=== PATIENT | female | born 1945 | race African-American/Black ===

== ENCOUNTER 2017-09-14 20:31 | Inpatient (IN) | payer MEDICARE, MEDICAID ==
--- NOTE | 2017-09-15 00:05 | ER Physician Documentation ---
DATE OF SERVICE: 09/14/2017 SUBJECTIVE: The patient was sent over here to be sent to [facility]. She is medically clear. I examined her. The patient does not have any sick complaint. The patient has amputation of the right foot. She has an artificial limb in the right lower extremity. The patient refused giving any blood. She initially refused to be admitted. She does not give any blood. No chest x-ray was done. EKG was done on her showing possible small inferior wall Q-wave patterns suggestive of maybe possibility of old inferior wall AL and the possibility of old anteroseptal wall AL and poor R-wave progression from V1-V4. The patient may be having hypothyroidism. The patient is not very cooperative. The patient was examined. She does not give any history. She came from [facility] facility, to be admitted over here [facility] under [id number]. REVIEW OF SYSTEMS: Essentially benign and negative. She does not have any complaints. Her physical exam reveals vital signs are within normal limits. The patient's right foot is amputated. Right leg has artificial limb. Left lower extremity is alright. General exam is otherwise benign and negative. Eyes reveal normal. Conjunctivae pink, sclerae white. HEENT: Normal. Jugular venous pressure is normal. No cyanosis, petechiae or ecchymosis. CHEST: Clear without any rales, rhonchi, or bronchial breathing. ABDOMEN: Soft, benign and negatives. CENTRAL NERVOUS SYSTEM: Within normal limits. She said she wants to go to her own doctor and she has appointments and things of that nature, but the patient has some psychiatric problems, psychosis and needs to be admitted over here. HEART: Reveals normal heart sounds. No fourth heart sounds. Second heart sound physiologically split. The patient denies any myocardial infarction, rheumatic fever. Hypothyroidism needs to be ruled out in view of the patient's generalized low voltage in the standard and extremity leads as well as in the precordial leads. The patient is an -[place] female patient, 72-year-old, date of is 1945. CLINICAL DIAGNOSIS: The patient has some psychiatric problems, psychosis, right foot amputation, history of diabetes mellitus, refused to give blood and patient was seen in the hallway as all the beds were full, so the patient will be sent to the [facility] facility at the present moment. JOB# [id number]
[2017-09-15] MEDS ORDERED: Maalox 30 mL Cup PO PRN (00:10)
[2017-09-15 00:19] VITALS: BP 130/80
[2017-09-15] MEDS ORDERED: Non-Formulary Item 1 EA (Cranberry Fruit Concentrate [Cranberry] 450 MG) PO SCH (09:00)
[2017-09-15] MEDS: Magnesium Hydroxide (MOM) 30 mL UDC PO SCH (09:24)
[2017-09-15] MEDS: Multivitamin Tab PO SCH (09:24)
--- NOTE | 2017-09-15 12:59 | Psychosocial Evaluation ---
DATE OF SERVICE: 09/15/2017 IDENTIFYING INFORMATION: The patient is a 72-year-old female. CHIEF COMPLAINT: No answer. HISTORY OF PRESENT ILLNESS: The patient was referred from [facility] because of increasing confusion, agitation and disruptive behavior. I have to call and given emergency medication order so she can come here as she at least went there twice and refused to come with them. She was acting very agitated, aggressive. The patient herself was a poor historian. She was delusional. She believes she is a psychologist and a doctor and a copy cutter. She believes this is the [place]. Unable to participate in meaningful conversation. PAST PSYCHIATRIC HISTORY: Unobtainable. MEDICAL HISTORY: Deferred to the medical doctor. She is allergic to insulin. FAMILY AND SOCIAL HISTORY: The patient is . She has children, but she is unable to give any further details. MENTAL STATUS EXAMINATION: The patient is appropriately dressed, not very groomed. She was feeding herself. She is able to tell me the date, but she is not sure where she is. She believes she is in the [facility]. When asked about suicide, homicide, she smiled inappropriately. Her long-term memory is poor. She believes she is 17 years of age. Her recent memory is poor, unable to tell me the events that led to coming here because of her psychosis. Her insight and judgment is impaired. IMPRESSION: AXIS I: Psychosis, not otherwise specified, rule out bipolar disorder. MEDICAL DIAGNOSES: Deferred to the medical doctor. Her assets, she wants to get help. Negative poor coping skills. INITIAL TREATMENT PLAN: The patient was [facility] We will do group therapy, milieu therapy, and individual therapy. ESTIMATED LENGTH OF STAY: 3-7 days. DISCHARGE CRITERIA: Decrease psychosis, agitation. After discharge, outpatient treatment. [facility]# [id number]
--- NOTE | 2017-09-15 20:20 | History & Physical ---
ADMIT DATE: CHIEF COMPLAINT: Psychosis. HISTORY OF PRESENT ILLNESS: The patient is a 72-year-old female with long history of diabetes mellitus, dementia, psychosis, peripheral vascular disease of lower extremities, admitted to [facility] under Dr. Jensen's service for evaluation and treatment. The patient denies any chest pain, shortness of breath, nausea, vomiting, fever or chills. PAST MEDICAL HISTORY: Significant for diabetes mellitus, dementia, psychosis, peripheral vascular disease of lower extremities. PAST SURGICAL HISTORY: Right below knee amputation. ALLERGIES: INSULIN MEDICATION. SOCIAL HISTORY: No smoking, no alcohol, no drug. FAMILY HISTORY: Noncontributory. MEDICATIONS: Follow admission reconciliation. REVIEW OF SYSTEMS: IMMUNO SYSTEM: No history of chronic immuno disorder. CARDIOVASCULAR SYSTEM: No coronary artery disease. ENDOCRINE SYSTEM: She has diabetes mellitus. GASTROINTESTINAL SYSTEM: No upper or lower gastrointestinal bleed. NEUROLOGICAL SYSTEM: No seizure disorder. SKELETOMUSCULAR SYSTEM: She has below-knee amputation on the right lower extremity. PHYSICAL EXAMINATION: GENERAL: She is awake, alert, not coherent. VITAL SIGNS: Temperature 98.1, heart rate 82, blood pressure 139/82. HEENT: Normocephalic. Pupils reacting equal to light and accommodation. Sclerae are clear. NECK: Supple. Negative for lymphadenopathy, JVD or bruit. CHEST: Air entry bilaterally normal. No wheezing. HEART: S1, S2 normal, no gallop rhythm. ABDOMEN: Soft, bowel sounds positive. EXTREMITIES: Right below knee amputation. NEUROLOGIC: She is awake, alert, not fully oriented. No focal motor or sensory deficit. ASSESSMENT: 1. Diabetes mellitus. 2. Degenerative joint disease. 3. Peripheral vascular disease of lower extremities. 4. Psychosis. 5. Dementia. PLAN: The patient is in the hospital under Dr. Jensen's service. The medical problems addressed during hospitalization are psychosis and dementia. Medical problems addressed at discharge are diabetes mellitus. The patient is medically stable for activity. Thank you Dr. Jensen for asking me to see your patient. JOB# [id number]
[2017-09-16] MEDS: Magnesium Hydroxide (MOM) 30 mL UDC PO SCH (08:57)
[2017-09-16] MEDS: Multivitamin Tab PO SCH (08:58)
--- NOTE | 2017-09-16 13:18 | Internal Medicine Prog Note ---
Internal Medicine Subjective - Subjective Service Date: 09/16/17 Patient seen and examined:: with staff (she feels better) Internal Medicine Objective - Physical Exam Vitals and I&O: Vital Signs Temp 98.4 F 09/16/17 06:07 Pulse 82 09/16/17 06:07 Resp 20 09/16/17 06:07 BP 139/82 09/15/17 18:52 Pulse Ox 100 09/16/17 06:07 Intake & Output 09/15/17 09/16/17 09/16/17 18:59 06:59 18:59 Intake Total 300 Balance 300 Intake: Oral 300 Other: # Voids 2 # Bowel Movements 0 Active Medications: Current Medications Acetaminophen (Tylenol) 325 mg PO Q4HR PRN PRN Reason: Pain or Fever >101 Stop: 11/14/17 00:05 Al Hydrox/Mg Hydrox/Simethicone (Maalox) 30 ml PO Q4HR PRN PRN Reason: GI DISTRESS Stop: 11/14/17 00:09 Aripiprazole (Abilify) 5 mg PO BID YAHAIRA PRN Reason: Protocol Stop: 11/14/17 16:59 Last Admin: 09/16/17 08:52 Dose: 5 mg Divalproex Sodium (Depakote Dr) 250 mg PO TID YAHAIRA PRN Reason: Protocol Stop: 11/14/17 13:59 Last Admin: 09/16/17 08:52 Dose: Not Given Docusate Sodium (Colace) 100 mg PO DAILY [facility]IRA Stop: 11/14/17 08:59 Last Admin: 09/16/17 08:57 Dose: Not Given Lorazepam (Ativan) 0.5 mg PO Q4HR PRN; Protocol PRN Reason: Anxiety Stop: 10/15/17 00:09 Last Admin: 09/15/17 20:52 Dose: 0.5 mg Magnesium Hydroxide (Milk Of Magnesia) 30 ml PO DAILY YA[facility]IRA Stop: 11/14/17 08:59 Last Admin: 09/16/17 08:57 Dose: Not Given Metformin HCl (Glucophage) 1,000 mg PO BID YAHAIRA Stop: 11/14/17 16:59 Last Admin: 09/16/17 08:52 Dose: 1,000 mg Multivitamins/Vitamin C (Theragran) 1 tab PO DAILY YA[facility]IRA Stop: 04/28/18 08:59 Last Admin: 09/16/17 08:58 Dose: Not Given Trihexyphenidyl HCl (Artane) 2 mg PO BID YAHAIRA Stop: 11/14/17 08:59 Last Admin: 09/16/17 08:52 Dose: 2 mg Zolpidem Tartrate (Ambien) 5 mg PO HS PRN PRN Reason: Insomnia Stop: 11/14/17 00:09 Internal Medicine Assmt/Plan - Assessment Assessment: 1.DM. 2.DJD. 3.PVD 4.DEMENTIA. - Plan Plan: CONTINUE ON CURRENT MEDICATION AND DIET.
--- NOTE | 2017-09-16 22:28 | Progress Notes ---
DATE: 09/16/2017 Case was discussed with staff of the patient. The patient continues to be somewhat paranoid, continues to have poor insight, unpredictable, and impulsive. She has been selective about the medication. Actually, we made no change in her medication. We are giving her the medication that was prescribed because she is saying that her doctor not given any medication and she is on Abilify and Depakote. The staff reports she did take the Abilify and refuse Depakote. She has been selective about her medication. I tried to talk to her about her medication, discussed side effects; however, she believes she does not need to be on medication. She ask her psychologist and she not need to be done and that she was have to go take care of her and I explained to the patient that actually she came from a nursing facility; however, she report that she was on her way to go see her and take him to the doctor. She is very evasive, delusional, and unable to make safe plan for self-care. No side effects to the medication, no sedation, no nausea, and no extrapyramidal symptoms. No lab work is available in the records. We will continue to work with the patient in group therapy, milieu therapy, and adjust medications as needed. JOB# [id number]
[2017-09-17] MEDS: Multivitamin Tab PO SCH (09:47)
[2017-09-17] MEDS: Magnesium Hydroxide (MOM) 30 mL UDC PO SCH (09:47)
--- NOTE | 2017-09-17 18:30 | Internal Medicine Prog Note ---
Internal Medicine Subjective - Subjective Service Date: 09/17/17 Patient seen and examined:: with staff Internal Medicine Objective - Physical Exam Vitals and I&O: Vital Signs Temp 98.4 F 09/17/17 14:00 Pulse 84 09/17/17 14:00 Resp 19 09/17/17 14:00 BP 137/68 09/17/17 14:00 Pulse Ox 99 09/17/17 14:00 Intake & Output 09/16/17 09/17/17 09/17/17 18:59 06:59 18:59 Intake Total 570 Balance 570 Intake: Oral 570 Other: # Voids 2 # Bowel Movements 2 Stool Characteristics Formed Formed Formed Active Medications: Current Medications Acetaminophen (Tylenol) 325 mg PO Q4HR PRN PRN Reason: Pain or Fever >101 Stop: 11/14/17 00:05 Al Hydrox/Mg Hydrox/Simethicone (Maalox) 30 ml PO Q4HR PRN PRN Reason: GI DISTRESS Stop: 11/14/17 00:09 Aripiprazole (Abilify) 5 mg PO TID YAHAIRA PRN Reason: Protocol Stop: 11/16/17 13:59 Last Admin: 09/17/17 18:00 Dose: Not Given Divalproex Sodium (Depakote Dr) 250 mg PO TID YAHAIRA PRN Reason: Protocol Stop: 11/14/17 13:59 Last Admin: 09/17/17 18:00 Dose: Not Given Docusate Sodium (Colace) 100 mg PO DAILY [facility] Stop: 11/14/17 08:59 Last Admin: 09/17/17 09:47 Dose: Not Given Lorazepam (Ativan) 0.5 mg PO Q4HR PRN; Protocol PRN Reason: Anxiety Stop: 10/15/17 00:09 Last Admin: 09/15/17 20:52 Dose: 0.5 mg Magnesium Hydroxide (Milk Of Magnesia) 30 ml PO DAILY YAHAIRA Stop: 11/14/17 08:59 Last Admin: 09/17/17 09:47 Dose: 30 ml Metformin HCl (Glucophage) 1,000 mg PO BID YAHAIRA Stop: 11/14/17 16:59 Last Admin: 09/17/17 18:00 Dose: Not Given Multivitamins/Vitamin C (Theragran) 1 tab PO DAILY YAHAIRA Stop: 11/14/17 08:59 Last Admin: 09/17/17 09:47 Dose: 1 tab Trihexyphenidyl HCl (Artane) 2 mg PO BID YAHAIRA Stop: 11/14/17 08:59 Last Admin: 09/17/17 18:00 Dose: Not Given Zolpidem Tartrate (Ambien) 5 mg PO HS PRN PRN Reason: Insomnia Stop: 11/14/17 00:09 Internal Medicine Assmt/Plan - Assessment Assessment: 1.DM. 2.DJD. 3.PVD 4.DEMENTIA. - Plan Plan: CONTINUE ON CURRENT MEDICATION AND DIET.
--- NOTE | 2017-09-18 03:32 | Progress Notes ---
DATE: 09/17/2017 SUBJECTIVE: Case was discussed with staff of the patient. The patient continues to be paranoid and delusional. She has artificial right leg. Continues to have poor insight. She continues to be delusional, unable to make safe plan for self-care, refusing to take the Depakote, but she is taking the Abilify. I will be increasing the dose to 50 mg a day to take 7.5 mg twice a day and so far no side effects with the medication, no sedation, no nausea, no extrapyramidal symptoms. There is no lab work available in the records. We will continue the patient in group therapy, milieu therapy, and adjust the medications. JOB# [id number]
[2017-09-18] MEDS: Magnesium Hydroxide (MOM) 30 mL UDC PO SCH (08:47)
[2017-09-18] MEDS: Multivitamin Tab PO SCH (08:47)
--- NOTE | 2017-09-19 00:16 | Internal Medicine Prog Note ---
Internal Medicine Subjective - Subjective Service Date: 09/18/17 Patient is:: awake, non-verbal, confused Per staff patient has:: no adverse event Internal Medicine Objective - Physical Exam Vitals and I&O: Vital Signs Temp 97.2 F 09/18/17 20:44 Pulse 90 09/18/17 20:44 Resp 18 09/18/17 20:44 BP 108/67 09/18/17 20:44 Pulse Ox 97 09/18/17 20:44 Intake & Output 09/18/17 09/18/17 09/19/17 06:59 18:59 06:59 Intake Total 549 833 5369 Balance 750 782 3491 Intake: Oral 571 715 3184 Other: # Voids 1 1 2 Stool Characteristics Formed Active Medications: Current Medications Acetaminophen (Tylenol) 325 mg PO Q4HR PRN PRN Reason: Pain or Fever >101 Stop: 11/14/17 00:05 Al Hydrox/Mg Hydrox/Simethicone (Maalox) 30 ml PO Q4HR PRN PRN Reason: GI DISTRESS Stop: 11/14/17 00:09 Aripiprazole (Abilify) 5 mg PO TID YAHAIRA PRN Reason: Protocol Stop: 11/16/17 13:59 Last Admin: 09/18/17 21:18 Dose: 5 mg Divalproex Sodium (Depakote Dr) 250 mg PO TID YAHAIRA PRN Reason: Protocol Stop: 11/14/17 13:59 Last Admin: 09/18/17 21:18 Dose: 250 mg Docusate Sodium (Colace) 100 mg PO DAILY [facility] Stop: 11/14/17 08:59 Last Admin: 09/18/17 08:47 Dose: 100 mg Lorazepam (Ativan) 0.5 mg PO Q4HR PRN; Protocol PRN Reason: Anxiety Stop: 10/15/17 00:09 Last Admin: 09/15/17 20:52 Dose: 0.5 mg Magnesium Hydroxide (Milk Of Magnesia) 30 ml PO DAILY [facility] Stop: 11/14/17 08:59 Last Admin: 09/18/17 08:47 Dose: Not Given Metformin HCl (Glucophage) 1,000 mg PO BID [facility] Stop: 11/14/17 16:59 Last Admin: 09/18/17 17:43 Dose: 1,000 mg Multivitamins/Vitamin C (Theragran) 1 tab PO DAILY [facility] Stop: 11/14/17 08:59 Last Admin: 09/18/17 08:47 Dose: 1 tab Trihexyphenidyl HCl (Artane) 2 mg PO BID YAHAIRA Stop: 11/14/17 08:59 Last Admin: 09/18/17 17:43 Dose: 2 mg Zolpidem Tartrate (Ambien) 5 mg PO HS PRN PRN Reason: Insomnia Stop: 11/14/17 00:09 General: demented HEENT: PERRLA, anicteric sclerae, throat clear Neck: Supple, No JVD, No thyromegaly Lungs: CTAB Cardiovascular: RRR, Normal S2, without murmur Abdomen: soft, non-tender, non-distended Extremities: clear Neurological: no change Internal Medicine Assmt/Plan - Assessment Assessment: 1.DM. 2.DJD. 3.PVD 4.DEMENTIA. - Plan Plan: CONTINUE ON CURRENT MEDICATION AND DIET.
--- NOTE | 2017-09-19 00:40 | Progress Notes ---
DATE: 09/17/2017 Case was discussed with staff of the patient and reviewed records. The patient refused the Abilify today; however, she will not tell me why she would not take it. She is selective, sometimes she takes it, sometimes she does not; so, we cannot really pursue, I wish hearing it that she did take it. She continues to be unpredictable, impulsive, needing redirection, delusional, unable to make safe plan for her self-care. We will continue to work with the patient in group therapy, milieu therapy, and adjust medications as needed. JOB# [id number]
[2017-09-19] MEDS: Magnesium Hydroxide (MOM) 30 mL UDC PO SCH (09:16)
[2017-09-19] MEDS: Multivitamin Tab PO SCH (09:17)
--- NOTE | 2017-09-19 15:23 | General Progress Note ---
Subjective - Review of Systems Service Date: 09/19/17 Subjective: resting comfortably no distress Objective - Physical Exam Vitals and I&O: Vital Signs Temp 97.4 F 09/19/17 07:15 Pulse 72 09/19/17 07:15 Resp 19 09/19/17 07:15 BP 107/60 09/19/17 07:15 Pulse Ox 98 09/19/17 07:15 Intake & Output 09/18/17 09/19/17 09/19/17 18:59 06:59 18:59 Intake Total 320 1840 1 Balance 320 1840 1 Intake: Oral 320 1840 1 Other: # Voids 1 2 Active Medications: Current Medications Acetaminophen (Tylenol) 325 mg PO Q4HR PRN PRN Reason: Pain or Fever >101 Stop: 11/14/17 00:05 Al Hydrox/Mg Hydrox/Simethicone (Maalox) 30 ml PO Q4HR PRN PRN Reason: GI DISTRESS Stop: 11/14/17 00:09 Aripiprazole (Abilify) 5 mg PO TID YAHAIRA PRN Reason: Protocol Stop: 11/16/17 13:59 Last Admin: 09/19/17 09:18 Dose: 5 mg Divalproex Sodium (Depakote Dr) 250 mg PO TID YAHAIRA PRN Reason: Protocol Stop: 11/14/17 13:59 Last Admin: 09/19/17 09:17 Dose: Not Given Docusate Sodium (Colace) 100 mg PO DAILY [facility] Stop: 11/14/17 08:59 Last Admin: 09/19/17 09:16 Dose: 100 mg Lorazepam (Ativan) 0.5 mg PO Q4HR PRN; Protocol PRN Reason: Anxiety Stop: 10/15/17 00:09 Last Admin: 09/15/17 20:52 Dose: 0.5 mg Magnesium Hydroxide (Milk Of Magnesia) 30 ml PO DAILY [facility] Stop: 11/14/17 08:59 Last Admin: 09/19/17 09:16 Dose: Not Given Metformin HCl (Glucophage) 1,000 mg PO BID [facility] Stop: 11/14/17 16:59 Last Admin: 09/19/17 09:17 Dose: 1,000 mg Multivitamins/Vitamin C (Theragran) 1 tab PO DAILY [facility] Stop: 11/14/17 08:59 Last Admin: 09/19/17 09:17 Dose: 1 tab Trihexyphenidyl HCl (Artane) 2 mg PO BID Y[facility]A Stop: 11/14/17 08:59 Last Admin: 09/19/17 09:17 Dose: 2 mg Zolpidem Tartrate (Ambien) 5 mg PO HS PRN PRN Reason: Insomnia Stop: 11/14/17 00:09 General: No acute distress HEENT: Atraumatic, PERRLA, EOMI Neck: Supple, JVD Cardiovascular: Regular rate, Normal S1, Normal S2 Lungs: Clear to auscultation Abdomen: Bowel sounds, Soft Assessment/Plan - Assessment Assessment: 1.DM. 2.DJD. 3.PVD 4.DEMENTIA. - Plan Plan: cont current treatment
--- NOTE | 2017-09-19 22:22 | Progress Notes ---
DATE: 09/19/2017 Case was discussed with staff of patient, reviewed records. The patient continues to be unpredictable, impulsive, internally preoccupied, refusing Depakote; however, she does take the Abilify, which is good enough so I can release her. She is taking the medication. Continues to have poor insight and unable to make safe plan for self-care, unpredictable, impulsive, needing redirection. She is sleeping well, eating well. No side effects with the medication, no sedation nausea, no extrapyramidal symptoms. We will continue patient in group therapy and therapy, adjust medication as needed. JOB# [id number]
--- NOTE | 2017-09-20 08:22 | General Progress Note ---
Subjective - Review of Systems Service Date: 09/20/17 Subjective: resting comfortably no distress Objective - Physical Exam Vitals and I&O: Vital Signs Temp 97.9 F 09/20/17 06:39 Pulse 81 09/20/17 06:39 Resp 20 09/20/17 06:39 BP 117/66 09/20/17 06:39 Pulse Ox 97 09/20/17 06:39 Intake & Output 09/19/17 09/20/17 09/20/17 18:59 06:59 18:59 Intake Total 1201 600 Balance 1201 600 Intake: Oral 1201 600 Other: # Voids 3 1 # Bowel Movements 3 Active Medications: Current Medications Acetaminophen (Tylenol) 325 mg PO Q4HR PRN PRN Reason: Pain or Fever >101 Stop: 11/14/17 00:05 Al Hydrox/Mg Hydrox/Simethicone (Maalox) 30 ml PO Q4HR PRN PRN Reason: GI DISTRESS Stop: 11/14/17 00:09 Aripiprazole (Abilify) 5 mg PO TID YAHAIRA PRN Reason: Protocol Stop: 11/16/17 13:59 Last Admin: 09/19/17 22:18 Dose: 5 mg Divalproex Sodium (Depakote Dr) 250 mg PO TID YAHAIRA PRN Reason: Protocol Stop: 11/14/17 13:59 Last Admin: 09/19/17 22:18 Dose: 250 mg Docusate Sodium (Colace) 100 mg PO DAILY [facility] Stop: 11/14/17 08:59 Last Admin: 09/19/17 09:16 Dose: 100 mg Lorazepam (Ativan) 0.5 mg PO Q4HR PRN; Protocol PRN Reason: Anxiety Stop: 10/15/17 00:09 Last Admin: 09/15/17 20:52 Dose: 0.5 mg Magnesium Hydroxide (Milk Of Magnesia) 30 ml PO DAILY [facility] Stop: 11/14/17 08:59 Last Admin: 09/19/17 09:16 Dose: Not Given Metformin HCl (Glucophage) 1,000 mg PO BID YA[facility]A Stop: 11/14/17 16:59 Last Admin: 09/19/17 16:19 Dose: 1,000 mg Multivitamins/Vitamin C (Theragran) 1 tab PO DAILY [facility] Stop: 11/14/17 08:59 Last Admin: 09/19/17 09:17 Dose: 1 tab Trihexyphenidyl HCl (Artane) 2 mg PO BID YAHAIRA Stop: 11/14/17 08:59 Last Admin: 09/19/17 16:19 Dose: 2 mg Zolpidem Tartrate (Ambien) 5 mg PO HS PRN PRN Reason: Insomnia Stop: 11/14/17 00:09 General: No acute distress HEENT: Atraumatic, PERRLA, EOMI Neck: Supple, JVD Cardiovascular: Regular rate, Normal S1, Normal S2 Lungs: Clear to auscultation Abdomen: Bowel sounds, Soft Assessment/Plan - Assessment Assessment: 1.DM. 2.DJD. 3.PVD 4.DEMENTIA. - Plan Plan: cont current treatment
[2017-09-20] MEDS: Multivitamin Tab PO SCH (08:40)
[2017-09-20] MEDS: Magnesium Hydroxide (MOM) 30 mL UDC PO SCH (08:43)
--- NOTE | 2017-09-20 23:05 | Progress Notes ---
DATE: 09/20/2017 Case was discussed with staff of patient, reviewed records. The patient continues to be delusional, believes she is a doctor herself, so she does not need to take any medication. She has been selective about her medication, but in general, she is taking Abilify, using Depakote. She is unpredictable, impulsive, needing redirection. Continues to have poor insight. She does take the Abilify sometimes so I will be increasing the dose and so far no side effects, no sedation, no nausea, no extrapyramidal symptoms. Make the Abilify dose to 10 mg twice a day and we will continue outpatient group therapy, milieu therapy, adjust medication as needed. JOB# [id number]
[2017-09-21] MEDS: Multivitamin Tab PO SCH (10:17)
[2017-09-21] MEDS: Magnesium Hydroxide (MOM) 30 mL UDC PO SCH (10:19)
--- NOTE | 2017-09-21 22:29 | Progress Notes ---
DATE: 09/21/2017 Case was discussed with staff of patient, reviewed records. The patient continues to be delusional, paranoid. She believes she is a doctor. She continues to be unpredictable, impulsive, needing redirection, refusing Depakote, but takes the Abilify. I did increase the dose yesterday to 10 mg twice a day and no side effects, no sedation, no nausea, no extrapyramidal symptoms. We will continue to work with the patient in group therapy, milieu therapy, and adjust medications as needed. JOB# [id number]
--- NOTE | 2017-09-21 23:17 | Internal Medicine Prog Note ---
Internal Medicine Subjective - Subjective Service Date: 09/21/17 Patient seen and examined:: without staff Patient is:: awake, non-verbal, confused Per staff patient has:: no adverse event Internal Medicine Objective - Physical Exam Vitals and I&O: Vital Signs Temp 98.7 F 09/21/17 22:32 Pulse 93 09/21/17 22:32 Resp 18 09/21/17 22:32 BP 123/69 09/21/17 22:32 Pulse Ox 99 09/21/17 22:32 Intake & Output 09/21/17 09/21/17 09/22/17 06:59 18:59 06:59 Intake Total 240 Balance 240 Intake: Oral 240 Other: # Voids 2 # Bowel Movements 0 Active Medications: Current Medications Acetaminophen (Tylenol) 325 mg PO Q4HR PRN PRN Reason: Pain or Fever >101 Stop: 11/14/17 00:05 Al Hydrox/Mg Hydrox/Simethicone (Maalox) 30 ml PO Q4HR PRN PRN Reason: GI DISTRESS Stop: 11/14/17 00:09 Aripiprazole (Abilify) 10 mg PO BID YA[facility]IRA PRN Reason: Protocol Stop: 11/19/17 16:59 Last Admin: 09/21/17 17:07 Dose: Not Given Divalproex Sodium (Depakote Dr) 250 mg PO TID YAHAIRA PRN Reason: Protocol Stop: 11/14/17 13:59 Last Admin: 09/21/17 21:53 Dose: Not Given Docusate Sodium (Colace) 100 mg PO DAILY [facility] Stop: 11/14/17 08:59 Last Admin: 09/21/17 10:17 Dose: 100 mg Lorazepam (Ativan) 0.5 mg PO Q4HR PRN; Protocol PRN Reason: Anxiety Stop: 10/15/17 00:09 Last Admin: 09/15/17 20:52 Dose: 0.5 mg Magnesium Hydroxide (Milk Of Magnesia) 30 ml PO DAILY [facility] Stop: 11/14/17 08:59 Last Admin: 09/21/17 10:19 Dose: Not Given Metformin HCl (Glucophage) 1,000 mg PO BID [facility] Stop: 11/14/17 16:59 Last Admin: 09/21/17 17:07 Dose: 1,000 mg Multivitamins/Vitamin C (Theragran) 1 tab PO DAILY [facility] Stop: 11/14/17 08:59 Last Admin: 09/21/17 10:17 Dose: 1 tab Trihexyphenidyl HCl (Artane) 2 mg PO BID [facility] Stop: 11/14/17 08:59 Last Admin: 09/21/17 17:07 Dose: 2 mg Zolpidem Tartrate (Ambien) 5 mg PO HS PRN PRN Reason: Insomnia Stop: 11/14/17 00:09 Last Admin: 09/20/17 21:56 Dose: 5 mg General: demented HEENT: PERRLA, anicteric sclerae, throat clear Neck: Supple, No JVD, No thyromegaly Lungs: CTAB Cardiovascular: RRR, Normal S2, without murmur Abdomen: soft, non-tender, non-distended Extremities: clear Neurological: no change Internal Medicine Assmt/Plan - Assessment Assessment: 1.DM. 2.DJD. 3.PVD 4.DEMENTIA. - Plan Plan: CONTINUE ON CURRENT MEDICATION AND DIET. Nutritional Asmnt/Malnutr-PDOC - Dietary Evaluation Malnutrition Findings (Please click <Entered> for more info): Nutritional Asmnt/Malnutrition Start: 09/21/17 15: 57 Text: Status: Complete Freq: Document 09/21/17 15:57 PIERO (Rec: 09/21/17 16:02 PIERO [email or web address]) Nutritional Asmnt/Malnutrition Patient General Information Nutritional Screening Low Risk Diagnosis psychosis Pertinent Medical Hx/Surgical Hx DM, dementia, psychosis, PVD, right BKA Subjective Information Pt seen sleeping in bed at time of visit. Per record, PO intake 100%. BMI 31.6 considering right BKA (5.9%) Current Diet Order/ [facility] Pertinent Medications colace, glucophage, theragran Pertinent Labs no labs Nutritional Hx/Data Height 1.65 m Height (Calculated Centimeters) 165.1 Current Weight (lbs) 81.647 kg Weight (Calculated Kilograms) 81.6 Weight (Calculated Grams) 81141.6 [place] Body Weight 113 Body Mass Index (BMI) 29.9 Weight Status Overweight Estimated Nutritional Goals BEE in Kcals: Adj wt of IBW Calories/Kcals/Kg 25-30 Kcals Calculated 5518-5519 Protein: Adj wt of IBW Protein g/k-1.2 Protein Calculated 59-71 Fluid: ml 1475-1770ml Nutritional Problem No current Nutrition Prob Problem N/A Malnutrition Alert Protein-Calorie Malnutrition N/A Is there a minimum of two criteria No selected? Query Text:Check all the applicable criteria. A minimum of two criteria are recommended for diagnosis of either severe or non-severe malnutrition. Intervention/Recommendation Comments 1. Continue with current diet as ordered. 2. Monitor PO intake, wt, labs and skin integrity 3. F/U as low risk in 7 days, 09/28 Expected Outcomes/Goals Expected Outcomes/Goals 1. PO intake to meet at least 75% of nutritional needs. 2. Wt stability, skin to remain intact, labs to approach WNL.
[2017-09-22] MEDS: Magnesium Hydroxide (MOM) 30 mL UDC PO SCH (08:59)
[2017-09-22] MEDS: Multivitamin Tab PO SCH (08:59)
--- NOTE | 2017-09-22 11:49 | Internal Medicine Prog Note ---
Internal Medicine Subjective - Subjective Service Date: 09/22/17 Patient seen and examined:: with staff Patient is:: awake, non-verbal, confused Per staff patient has:: no adverse event Internal Medicine Objective - Physical Exam Vitals and I&O: Vital Signs Temp 99.2 F 09/22/17 06:00 Pulse 78 09/22/17 06:00 Resp 20 09/22/17 06:00 BP 129/59 09/22/17 06:00 Pulse Ox 99 09/22/17 06:00 Intake & Output 09/21/17 09/22/17 09/22/17 18:59 06:59 18:59 Intake Total 440 Balance 440 Intake: Oral 440 Other: # Voids 2 # Bowel Movements 0 Active Medications: Current Medications Acetaminophen (Tylenol) 325 mg PO Q4HR PRN PRN Reason: Pain or Fever >101 Stop: 11/14/17 00:05 Al Hydrox/Mg Hydrox/Simethicone (Maalox) 30 ml PO Q4HR PRN PRN Reason: GI DISTRESS Stop: 11/14/17 00:09 Aripiprazole (Abilify) 10 mg PO BID [facility]A PRN Reason: Protocol Stop: 11/19/17 16:59 Last Admin: 09/22/17 08:59 Dose: Not Given Divalproex Sodium (Depakote Dr) 250 mg PO TID [facility] PRN Reason: Protocol Stop: 11/14/17 13:59 Last Admin: 09/22/17 08:59 Dose: Not Given Docusate Sodium (Colace) 100 mg PO DAILY [facility] Stop: 11/14/17 08:59 Last Admin: 09/22/17 08:58 Dose: 100 mg Lorazepam (Ativan) 0.5 mg PO Q4HR PRN; Protocol PRN Reason: Anxiety Stop: 10/15/17 00:09 Last Admin: 09/15/17 20:52 Dose: 0.5 mg Magnesium Hydroxide (Milk Of Magnesia) 30 ml PO DAILY [facility] Stop: 11/14/17 08:59 Last Admin: 09/22/17 08:59 Dose: Not Given Metformin HCl (Glucophage) 1,000 mg PO BID [facility] Stop: 11/14/17 16:59 Last Admin: 09/22/17 08:55 Dose: 1,000 mg Multivitamins/Vitamin C (Theragran) 1 tab PO DAILY [facility] Stop: 11/14/17 08:59 Last Admin: 09/22/17 08:59 Dose: 1 tab Trihexyphenidyl HCl (Artane) 2 mg PO BID [facility] Stop: 11/14/17 08:59 Last Admin: 09/22/17 08:58 Dose: 2 mg Zolpidem Tartrate (Ambien) 5 mg PO HS PRN PRN Reason: Insomnia Stop: 11/14/17 00:09 Last Admin: 09/22/17 01:24 Dose: 5 mg General: demented HEENT: PERRLA, anicteric sclerae, throat clear Neck: Supple, No JVD, No thyromegaly Lungs: CTAB Cardiovascular: RRR, Normal S2, without murmur Abdomen: soft, non-tender, non-distended Extremities: clear Neurological: no change Internal Medicine Assmt/Plan - Assessment Assessment: 1.DM. 2.DJD. 3.PVD 4.DEMENTIA. - Plan Plan: CONTINUE ON CURRENT MEDICATION AND DIET. Nutritional Asmnt/Malnutr-PDOC - Dietary Evaluation Malnutrition Findings (Please click <Entered> for more info): Nutritional Asmnt/Malnutrition Start: 09/21/17 15: 57 Text: Status: Complete Freq: Document 09/21/17 15:57 PIERO (Rec: 09/21/17 16:02 PIERO [email or web address]) Nutritional Asmnt/Malnutrition Patient General Information Nutritional Screening Low Risk Diagnosis psychosis Pertinent Medical Hx/Surgical Hx DM, dementia, psychosis, PVD, right BKA Subjective Information Pt seen sleeping in bed at time of visit. Per record, PO intake 100%. BMI 31.6 considering right BKA (5.9%) Current Diet Order/ [facility] Pertinent Medications colace, glucophage, theragran Pertinent Labs no labs Nutritional Hx/Data Height 1.65 m Height (Calculated Centimeters) 165.1 Current Weight (lbs) 81.647 kg Weight (Calculated Kilograms) 81.6 Weight (Calculated Grams) 02927.6 [place] Body Weight 113 Body Mass Index (BMI) 29.9 Weight Status Overweight Estimated Nutritional Goals BEE in Kcals: Adj wt of IBW Calories/Kcals/Kg 25-30 Kcals Calculated 1585-0868 Protein: Adj wt of IBW Protein g/k-1.2 Protein Calculated 59-71 Fluid: ml 1475-1770ml Nutritional Problem No current Nutrition Prob Problem N/A Malnutrition Alert Protein-Calorie Malnutrition N/A Is there a minimum of two criteria No selected? Query Text:Check all the applicable criteria. A minimum of two criteria are recommended for diagnosis of either severe or non-severe malnutrition. Intervention/Recommendation Comments 1. Continue with current diet as ordered. 2. Monitor PO intake, wt, labs and skin integrity 3. F/U as low risk in 7 days, 09/28 Expected Outcomes/Goals Expected Outcomes/Goals 1. PO intake to meet at least 75% of nutritional needs. 2. Wt stability, skin to remain intact, labs to approach WNL.
--- NOTE | 2017-09-22 15:08 | Discharge Summary ---
DATE OF DISCHARGE: 09/19/2017 IDENTIFYING INFORMATION: The patient is a 72-year-old female. CHIEF COMPLAINT: No answer. HISTORY OF PRESENT ILLNESS: The patient was referred from [facility] because of increasing confusion, agitation and disruptive behavior, had to be medicated upon admission. The patient was a poor historian. She believes she is a doctor and a psychologist, unable to give much information, diagnosed with psychosis, no answer and possible bipolar disorder, also partial dementia. COURSE IN THE HOSPITAL: The patient was on Abilify ____ mg twice a day, Depakote 250 mg 3 times a day. The patient tended to be picky about her medications. Sometimes she takes it, sometimes she not. She continues to be delusional. She is also ____ twice a day as needed. The patient got a stage where we can feel like even longer ____ we can take care of her. The patient is not acting anyway dangerous or agitated. She can go to the locked unit and could be held and the patient was discharged to a lesser level of care. FINAL DIAGNOSIS: AXIS I: Bipolar disorder with psychosis. MEDICAL DIAGNOSIS: Deferred to the medical doctor. The patient will go back to [facility], was set up care physician and therapist. Expected stay if the patient complies. [facility]# [id number]
== END 2017-09-22 19:52 | disposition home or self-care (01) | DRG 885 ==
LOC: ER 20:31 → GERO2 22:00
PROVIDERS: ADMIT Psychiatry & Neurology Psychiatry; ATTEND Psychiatry & Neurology Psychiatry
DX: F29 Unspecified psychosis not due to a substance or known physiological condition (principal); E11.51 Type 2 diabetes mellitus with diabetic peripheral angiopathy without gangrene; F03.90 Unspecified dementia, unspecified severity, without behavioral disturbance, psychotic disturbance, mood disturbance, and anxiety; F31.9 Bipolar disorder, unspecified; M19.90 Unspecified osteoarthritis, unspecified site; Z88.8 Allergy status to other drugs, medicaments and biological substances; Z89.431 Acquired absence of right foot
CPT/HCPCS: 93005

== ENCOUNTER 2018-12-31 21:28 | Inpatient (IN) | payer MEDICARE, MEDICAID ==
--- NOTE | 2018-12-31 22:05 | ED Physician Chart ---
ED Chief Complaint/HPI - Patient Information Date Seen:: 12/31/18 Time Seen:: 21:59 Chief Complaint:: agitation History of Present Illness:: 73 yr old female here for agitation and striking out at people pt has dm and rt bka prosthesis pt refuses vitals or any contact with us staff refuses to answer any questions Allergies:: Allergies Allergy/AdvReac Type Severity Reaction Status Date / Time Insulins Allergy Verified 09/14/17 21:20 ED Review of Systems - Review of Systems General/Constitutional: No fever Head: No headache Eyes: No loss of vision ENT: No earache Neck: No neck pain Cardio Vascular: No chest pain Pulmonary: No SOB GI: No vomiting Psychiatric: Prior psych history Hematopoietic: No bruising ED Past Medical History - Past Medical History Past Medical History: DM Surgical History: other (rt bka) Family Medical History - Family Member Mother History Unknown: Yes Ethnicity: Unknown Living Status: Unknown Hx Family Cancer: (Unknown) Hx Family Coronary Artery Disease: (Unknown) Hx Family Congestive Heart Failure: (Unknown) Hx Family Hypertension: (Unknown) Hx Family Stroke: (Unknown) Hx Family Diabetes: (Unknown) Hx Family Seizures: (Unknown) Hx Family Dementia: (Unknown) Hx Family AIDS: (Unknown) Hx Family HIV: No Hx Family COPD: (Unknown) Hx Family Hepatitis: (Unknown) Hx Family Psychiatric Problems: (Unknown) Hx Family Tuberculosis: (Unknown) ED Physical Exam - Physical Examination General/Constitutional: Awake Head: Atraumatic Eyes: Lids, conjuctiva normal ED Assessment - Assessment General Assessment: agitation geropsych evaluation ED Septic Shock - . Is Septic Shock (SBP<90, OR Lactate>4 mmol\L) present?: No ED Reassessment (Disposition) - Reassessment Reassessment:: psychosi agitation - Patient Disposition Admitted to:: [facility] Condition at Disposition:: Stable
[2019-01-01] MEDS ORDERED: Maalox 30 mL Cup PO PRN ×2 (03:24→21:03)
[2019-01-01] MEDS ORDERED: Magnesium Hydroxide (MOM) 30 mL UDC PO PRN (03:24)
[2019-01-01 08:54] VITALS: BP 116/52
[2019-01-01] MEDS: Haldol Oral Sol.(concentrate) 10 mg/5 mL Udc PO SCH ×2 (09:30→17:20)
[2019-01-01] MEDS ORDERED: Dextrose 50% 50 mL Abboject IVP PRN (21:05)
[2019-01-01] MEDS ORDERED: GLUCAGON HCl 1 MG KIT IM PRN (21:05)
--- NOTE | 2019-01-01 21:29 | History & Physical ---
ADMIT DATE: 12/31/2018 CHIEF COMPLAINT: Psychosis. HISTORY OF PRESENT ILLNESS: The patient is a 73-year-old female with long history of diabetes mellitus, psychosis, admitted to [facility] under Dr. Garcia's service. The patient is very confused and poor historian. The patient will resume her medication and diet. PAST MEDICAL HISTORY: Significant for diabetes mellitus and psychosis. PAST SURGICAL HISTORY: Left below knee amputation. ALLERGIES: INSULIN. SOCIAL HISTORY: No smoking. No alcohol. FAMILY HISTORY: Noncontributory. REVIEW OF SYSTEMS: RENAL SYSTEM: No history of chronic renal disorder. CARDIOVASCULAR SYSTEM: No coronary artery disease. ENDOCRINE SYSTEM: She has diabetes mellitus. GASTROINTESTINAL SYSTEM: No upper or lower gastrointestinal bleed. NEUROLOGICAL SYSTEM: No seizure disorder. SKELETOMUSCULAR SYSTEM: No muscular dystrophy. HEMATOLOGICAL SYSTEM: No bleeding tendencies. RESPIRATORY SYSTEMS: No history of asthma. GENITOURINARY: No dysuria or hematuria. PHYSICAL EXAMINATION: GENERAL: She is awake, not coherent. She is agitated and combative. VITAL SIGNS: Temperature 98.7, heart rate 72, blood pressure 121/66. HEENT: Normocephalic. Pupils are reactive to light and accommodation. Sclerae are clear. NECK: Supple. Negative for lymphadenopathy, JVD or bruit. CHEST: Entry of air bilaterally. No rales, rhonchi or wheezing. HEART: S1, S2 normal. No murmur or gallop rhythm. ABDOMEN: Soft, bowel sounds positive. EXTREMITIES: Significant for the left below knee amputation. NEUROLOGICAL: She is awake, not coherent. No focal muscle deficits. ASSESSMENT: 1. Diabetes mellitus. 2. Peripheral vascular disease of lower extremity. 3. Psychosis. PLAN: The patient admitted to the hospital under Dr. Garcia's service. Problem to be addressed during hospitalization is psychosis and diabetes mellitus. Medical problems addressed at discharge psychosis and diabetes mellitus. The patient is medically stable for activity. Thank you, Dr. Garcia, for asking me to see your patient. The patient is full code. JOB# [id number]
[2019-01-02] MEDS ORDERED: INSULIN LISPRO SLIDING SCALE 100 UNITS/ML UNIT SUBQ SCH (07:30)
--- NOTE | 2019-01-02 15:44 | Psychiatric Evaluation ---
DATE OF SERVICE: 12/31/2018 PATIENT'S AGE: 73. SEX: Female. PHYSICIAN: Dr. Garcia. CHIEF COMPLAINT: Severe agitation and aggressive behavior. HISTORY OF PRESENT ILLNESS: The patient is a 73-year-old female who was transferred to the hospital from [facility] after the patient became physically aggressive towards the staff in the facility and also she was constantly talking to herself. Chart reviewed and the patient interviewed. The patient is constantly talking to herself. The patient is severely anxious and severely paranoid. The patient also was getting angry and agitated easily and tried to hit anything in front of her. The patient also refusing care and when I tried to talk to the patient, she refused to answer questions and kept rambling in angry way and kept moving. PAST PSYCHIATRIC HISTORY: The patient has history of psychosis and dementia according to admission report. PAST MEDICAL HISTORY: The patient has a right below-knee amputation. The patient also is refusing any help or treatment when tried to help her. The patient also is angry. The patient also has a history of dementia. MEDICAL PROBLEMS: No major medical problems for the patient upon admission and according to the ER reports. The patient has history of diabetes mellitus. SOCIAL HISTORY: The patient has been living in [facility]. No known alcohol or drug use. ALLERGIES: No known allergies. MENTAL STATUS EXAMINATION: The patient appears her stated age. Anxious. Irritable mood. Uncooperative. Yelling and screaming. The patient also was aggressive and easily agitated and trying to hit and swing and has to stay away from her because of her aggression. The patient did not answer question regarding hallucinations or delusions, but actively responding. The patient did not answer question regarding suicide or homicide, but extremely aggressive and angry. The patient is alert, but unable to assess orientation or memory because of her aggression and uncooperativeness. Poor insight and poor judgment. Unable to assess the rest of the mental status exam because of her mental condition. ESTIMATED LENGTH OF STAY: 5-7 days. PATIENT'S STRENGTHS AND WEAKNESSES: The patient's strength is not clear at this time. Weaknesses are her ineffective coping. AFTER DISCHARGE PLAN: The patient will return to [facility] and outpatient treatment and followup will continue as an outpatient. CRITERIA FOR DISCHARGE: The patient will not be appeared suicidal and will stabilize psychotropic medications. JOB# [id number]
[2019-01-02] MEDS: Haldol Oral Sol.(concentrate) 10 mg/5 mL Udc PO SCH (16:52)
[2019-01-02] MEDS: Multivitamin Tab PO SCH (16:52)
[2019-01-02] MEDS: Magnesium Hydroxide (MOM) 30 mL UDC PO SCH (16:52)
--- NOTE | 2019-01-02 21:37 | Internal Medicine Prog Note ---
Internal Medicine Subjective - Subjective Service Date: 01/02/19 Patient seen and examined:: with staff (SHE IS REFUSING MEDICATION) Patient is:: awake, verbal, in bed, talking, agitated Per staff patient has:: no adverse event Internal Medicine Objective - Physical Exam Vitals and I&O: Vital Signs Temp 97.9 F 01/02/19 19:42 Pulse 81 01/02/19 19:42 Resp 18 01/02/19 19:42 BP 128/74 01/02/19 19:42 Pulse Ox 98 01/02/19 19:42 Intake & Output 01/02/19 01/02/19 01/03/19 06:59 18:59 06:59 Intake Total 120 Balance 120 Intake: Oral 120 Other: # Voids 3 # Bowel Movements 0 Active Medications: Current Medications Acetaminophen (Tylenol) 650 mg PO Q4HR PRN PRN Reason: Mild Pain / Temp above 100 Stop: 03/02/19 03:23 Acetaminophen (Tylenol) 325 mg PO Q4HR PRN PRN Reason: Pain or Fever >101 Stop: 03/02/19 21:02 Al Hydrox/Mg Hydrox/Simethicone (Maalox) 30 ml PO Q4HR PRN PRN Reason: GI DISTRESS Stop: 03/02/19 21:02 Dextrose (D50w) 50 ml IVP PRN PRN PRN Reason: Blood Glucose less than 70 Stop: 03/02/19 21:04 Dextrose (Glutose 40%) 18.75 gm PO PRN PRN PRN Reason: Blood Glucose less than 70 Stop: 03/02/19 21:04 Divalproex Sodium (Depakote Dr) 250 mg PO TID [facility]; Protocol Stop: 03/02/19 08:59 Last Admin: 01/02/19 16:51 Dose: Not Given Docusate Sodium (Colace) 100 mg PO DAILY [facility] Stop: 03/03/19 08:59 Last Admin: 01/02/19 16:52 Dose: Not Given Glucagon (Glucagen) 1 mg IM PRN PRN PRN Reason: Blood Glucose less than 70 Stop: 03/02/19 21:04 Haloperidol Lactate (Haldol Concentrate 10mg/5ml Susp) 5 mg PO BID [facility]; Protocol Stop: 03/02/19 08:59 Last Admin: 01/02/19 16:52 Dose: Not Given Insulin Human Lispro (Humalog Insulin Sliding Scale) 0 units SUBQ ACHS [facility]; Protocol Stop: 03/03/19 07:29 Lorazepam (Ativan) 0.5 mg PO Q4HR PRN; Protocol PRN Reason: Anxiety Stop: 01/31/19 03:41 Magnesium Hydroxide (Milk Of Magnesia) 30 ml PO HS PRN PRN Reason: Constipation Magnesium Hydroxide (Milk Of Magnesia) 30 ml PO DAILY [facility] Stop: 03/03/19 08:59 Last Admin: 01/02/19 16:52 Dose: Not Given Metformin HCl (Glucophage) 1,000 mg PO BID Y[facility] Stop: 03/03/19 08:59 Last Admin: 01/02/19 16:59 Dose: Not Given Multivitamins/Vitamin C (Theragran) 1 tab PO DAILY [facility] Stop: 03/03/19 08:59 Last Admin: 01/02/19 16:52 Dose: Not Given Trihexyphenidyl HCl (Artane) 2 mg PO BID [facility] Stop: 03/03/19 08:59 Last Admin: 01/02/19 16:59 Dose: Not Given Zolpidem Tartrate (Ambien) 5 mg PO HSMR1 PRN PRN Reason: Insomnia Stop: 03/02/19 03:41 General: alert, demented HEENT: NC/AT, PERRLA, EOMI, anicteric sclerae, throat clear Neck: Supple, No JVD, No thyromegaly, +2 carotid pulse wo bruit, No LAD Lungs: CTAB Cardiovascular: RRR, Normal S1, Normal S2, without murmur Abdomen: soft, non-tender, non-distended Extremities: clear Neurological: no change Internal Medicine Assmt/Plan - Assessment Assessment: 1.DM. 2.PVD OF LOWER EXTREM. 3.PSYCHOSIS - Plan Plan: CONTINUE ON CURRENT MEDICATION AND DIET.
--- NOTE | 2019-01-03 00:16 | Progress Notes ---
DATE: SUBJECTIVE: Chart was reviewed and the patient interviewed. Discussed the patient's condition with the staff and reviewed records and labs. The patient is still agitated and is still in irritable mood. The patient also is still in angry mood and uncooperative with the staff. The patient also is refusing to take medications. Staff to monitor the patient's behavior and the condition closely and trying to convince the patient to take her medications, but the patient is still resisting care and angry and agitated. ASSESSMENT: The patient still can be dangerous to others. TREATMENT PLAN: Continue to work on behavior modification as well as compliant with taking her medications. We will continue working also on compliant with medications and we will continue to follow up. JOB# [id number]
[2019-01-03] MEDS: Multivitamin Tab PO SCH ×2 (09:10→11:27)
[2019-01-03] MEDS: Haldol Oral Sol.(concentrate) 10 mg/5 mL Udc PO SCH ×4 (09:11→17:10)
[2019-01-03] MEDS: Magnesium Hydroxide (MOM) 30 mL UDC PO SCH ×2 (09:11→11:27)
--- NOTE | 2019-01-03 21:01 | Internal Medicine Prog Note ---
Internal Medicine Subjective - Subjective Service Date: 01/03/19 Patient seen and examined:: without staff (SHE STILL CONFUSED) Patient is:: awake, verbal, in bed, talking, agitated Per staff patient has:: no adverse event Internal Medicine Objective - Physical Exam Vitals and I&O: Vital Signs Temp 97.8 F 01/03/19 19:23 Pulse 73 01/03/19 19:23 Resp 19 01/03/19 19:44 BP 146/74 01/03/19 19:23 Pulse Ox 99 01/03/19 19:23 Intake & Output 01/03/19 01/03/19 01/04/19 06:59 18:59 06:59 Intake Total 120 1000 160 Balance 120 1000 160 Intake: Oral 120 1000 160 Other: # Voids 3 4 1 # Bowel Movements 0 1 0 Active Medications: Current Medications Acetaminophen (Tylenol) 650 mg PO Q4HR PRN PRN Reason: Mild Pain / Temp above 100 Stop: 03/02/19 03:23 Acetaminophen (Tylenol) 325 mg PO Q4HR PRN PRN Reason: Pain or Fever >101 Stop: 03/02/19 21:02 Al Hydrox/Mg Hydrox/Simethicone (Maalox) 30 ml PO Q4HR PRN PRN Reason: GI DISTRESS Stop: 03/02/19 21:02 Dextrose (D50w) 50 ml IVP PRN PRN PRN Reason: Blood Glucose less than 70 Stop: 03/02/19 21:04 Dextrose (Glutose 40%) 18.75 gm PO PRN PRN PRN Reason: Blood Glucose less than 70 Stop: 03/02/19 21:04 Divalproex Sodium (Depakote Dr) 250 mg PO TID [facility]; Protocol Stop: 03/02/19 08:59 Last Admin: 01/03/19 13:45 Dose: Not Given Docusate Sodium (Colace) 100 mg PO DAILY [facility] Stop: 03/03/19 08:59 Last Admin: 01/03/19 11:27 Dose: Not Given Glucagon (Glucagen) 1 mg IM PRN PRN PRN Reason: Blood Glucose less than 70 Stop: 03/02/19 21:04 Haloperidol Lactate (Haldol Concentrate 10mg/5ml Susp) 5 mg PO BID [facility]; Protocol Stop: 03/02/19 08:59 Last Admin: 01/03/19 17:10 Dose: Not Given Lorazepam (Ativan) 0.5 mg PO Q4HR PRN; Protocol PRN Reason: Anxiety Stop: 01/31/19 03:41 Magnesium Hydroxide (Milk Of Magnesia) 30 ml PO HS PRN PRN Reason: Constipation Magnesium Hydroxide (Milk Of Magnesia) 30 ml PO DAILY [facility] Stop: 03/03/19 08:59 Last Admin: 01/03/19 11:27 Dose: Not Given Metformin HCl (Glucophage) 1,000 mg PO BID [facility] Stop: 03/03/19 08:59 Last Admin: 01/03/19 17:10 Dose: Not Given Multivitamins/Vitamin C (Theragran) 1 tab PO DAILY [facility] Stop: 03/03/19 08:59 Last Admin: 01/03/19 11:27 Dose: Not Given Trihexyphenidyl HCl (Artane) 2 mg PO BID [facility] Stop: 03/03/19 08:59 Last Admin: 01/03/19 17:10 Dose: Not Given Zolpidem Tartrate (Ambien) 5 mg PO HSMR1 PRN PRN Reason: Insomnia Stop: 03/02/19 03:41 General: alert, demented HEENT: NC/AT, PERRLA, EOMI, anicteric sclerae, throat clear Neck: Supple, No JVD, No thyromegaly, +2 carotid pulse wo bruit, No LAD Lungs: CTAB Cardiovascular: RRR, Normal S1, Normal S2, without murmur Abdomen: soft, non-tender, non-distended Extremities: clear Neurological: no change Internal Medicine Assmt/Plan - Assessment Assessment: 1.DM. 2.PVD OF LOWER EXTREM. 3.PSYCHOSIS - Plan Plan: CONTINUE ON CURRENT MEDICATION AND DIET.
--- NOTE | 2019-01-04 00:52 | Progress Notes ---
DATE: SUBJECTIVE: Chart was reviewed and the patient interviewed. Also discussed the patient's condition with the staff and reviewed records and labs. The patient is still severely angry and in irritable mood. The patient also is still suspicious and is still paranoid. The patient also still has severe mood swings. The patient also is resisting care, and she does not allow staff to touch her or help her with her ADLs. The patient also is refusing to take any psychotropic medications and she is still resisting all kind of help. ASSESSMENT: The patient is still psychotic and agitated and is still resisting care. TREATMENT PLAN: Continue to monitor behavior and condition closely and continue to follow up. JOB# [id number]
[2019-01-04] MEDS: Magnesium Hydroxide (MOM) 30 mL UDC PO SCH (09:30)
[2019-01-04] MEDS: Haldol Oral Sol.(concentrate) 10 mg/5 mL Udc PO SCH ×2 (09:30→17:08)
[2019-01-04] MEDS: Multivitamin Tab PO SCH (09:30)
--- NOTE | 2019-01-04 21:13 | Internal Medicine Prog Note ---
Internal Medicine Subjective - Subjective Service Date: 01/04/19 Patient seen and examined:: with staff (SHE IS CONFUSED) Patient is:: awake, verbal, in bed, talking, agitated Per staff patient has:: no adverse event Internal Medicine Objective - Physical Exam Vitals and I&O: Vital Signs Temp 97.9 F 01/04/19 20:54 Pulse 73 01/04/19 20:54 Resp 20 01/04/19 20:54 BP 102/65 01/04/19 20:54 Pulse Ox 99 01/04/19 20:54 Intake & Output 01/04/19 01/04/19 01/05/19 06:59 18:59 06:59 Intake Total 220 450 120 Balance 220 450 120 Intake: Oral 220 450 120 Other: # Voids 2 2 # Bowel Movements 0 0 Active Medications: Current Medications Acetaminophen (Tylenol) 650 mg PO Q4HR PRN PRN Reason: Mild Pain / Temp above 100 Stop: 03/02/19 03:23 Acetaminophen (Tylenol) 325 mg PO Q4HR PRN PRN Reason: Pain or Fever >101 Stop: 03/02/19 21:02 Al Hydrox/Mg Hydrox/Simethicone (Maalox) 30 ml PO Q4HR PRN PRN Reason: GI DISTRESS Stop: 03/02/19 21:02 Dextrose (D50w) 50 ml IVP PRN PRN PRN Reason: Blood Glucose less than 70 Stop: 03/02/19 21:04 Dextrose (Glutose 40%) 18.75 gm PO PRN PRN PRN Reason: Blood Glucose less than 70 Stop: 03/02/19 21:04 Divalproex Sodium (Depakote Dr) 250 mg PO TID [facility]; Protocol Stop: 03/02/19 08:59 Last Admin: 01/04/19 14:24 Dose: Not Given Docusate Sodium (Colace) 100 mg PO DAILY [facility] Stop: 03/03/19 08:59 Last Admin: 01/04/19 09:30 Dose: Not Given Glucagon (Glucagen) 1 mg IM PRN PRN PRN Reason: Blood Glucose less than 70 Stop: 03/02/19 21:04 Haloperidol Lactate (Haldol Concentrate 10mg/5ml Susp) 5 mg PO BID [facility]; Protocol Stop: 03/02/19 08:59 Last Admin: 01/04/19 17:08 Dose: Not Given Lorazepam (Ativan) 0.5 mg PO Q4HR PRN; Protocol PRN Reason: Anxiety Stop: 01/31/19 03:41 Magnesium Hydroxide (Milk Of Magnesia) 30 ml PO HS PRN PRN Reason: Constipation Magnesium Hydroxide (Milk Of Magnesia) 30 ml PO DAILY [facility] Stop: 03/03/19 08:59 Last Admin: 01/04/19 09:30 Dose: Not Given Metformin HCl (Glucophage) 1,000 mg PO BID [facility] Stop: 03/03/19 08:59 Last Admin: 01/04/19 17:08 Dose: Not Given Multivitamins/Vitamin C (Theragran) 1 tab PO DAILY [facility] Stop: 03/03/19 08:59 Last Admin: 01/04/19 09:30 Dose: Not Given Trihexyphenidyl HCl (Artane) 2 mg PO BID [facility] Stop: 03/03/19 08:59 Last Admin: 01/04/19 17:08 Dose: Not Given Zolpidem Tartrate (Ambien) 5 mg PO HSMR1 PRN PRN Reason: Insomnia Stop: 03/02/19 03:41 General: alert, demented HEENT: NC/AT, PERRLA, EOMI, anicteric sclerae, throat clear Neck: Supple, No JVD, No thyromegaly, +2 carotid pulse wo bruit, No LAD Lungs: CTAB Cardiovascular: RRR, Normal S1, Normal S2, without murmur Abdomen: soft, non-tender, non-distended Extremities: clear Neurological: no change Internal Medicine Assmt/Plan - Assessment Assessment: 1.DM. 2.PVD OF LOWER EXTREM. 3.PSYCHOSIS - Plan Plan: CONTINUE ON CURRENT MEDICATION AND DIET.
--- NOTE | 2019-01-05 01:41 | Progress Notes ---
DATE: 01/04/2019 SUBJECTIVE: Chart reviewed and the patient interviewed. Also discussed the patient's condition with the staff and reviewed records and labs. The patient continues to be in angry and in irritable mood. She also is still severely agitated and she is verbally abusive to staff and peers. The patient also is still unable to follow up with staff directions. The patient also is having mood swings and resisting care and gets agitated and aggressive when staff tries to help her with her ADLs and basic hygiene. ASSESSMENT: The patient is still aggressive and agitated. TREATMENT PLAN: Continue to monitor her behavior and her condition. Also, continue to work on her agitation and irritability and on her noncompliance with treatment recommendations and medications. [facility]# [id number]
[2019-01-05] MEDS: Haldol Oral Sol.(concentrate) 10 mg/5 mL Udc PO SCH ×2 (09:03→16:28)
[2019-01-05] MEDS: Multivitamin Tab PO SCH (09:03)
[2019-01-05] MEDS: Magnesium Hydroxide (MOM) 30 mL UDC PO SCH (09:03)
--- NOTE | 2019-01-05 19:40 | Progress Notes ---
DATE: 01/04/2019 SUBJECTIVE: Chart was reviewed and the patient interviewed. Also discussed the patient's condition with the staff and reviewed records and labs. The patient is still severely irritable and is still extremely agitated. The patient also is still resisting care. The patient also is suspicious and is paranoid. Otherwise, the patient is compliant with taking her medications and no side effects of medications. ASSESSMENT: The patient is still psychotic and still needs close monitoring, especially that she has been refusing to take her medications, which was Depakote and Haldol, and we change it liquid form. Hopefully, the patient will agree to take it and will continue to follow up. JOB# [id number]
--- NOTE | 2019-01-05 21:02 | Internal Medicine Prog Note ---
Internal Medicine Subjective - Subjective Service Date: 01/05/19 Patient seen and examined:: with staff (SHE IS STILL REFUSING MEDICATION.) Patient is:: awake, verbal, in bed, talking, agitated Per staff patient has:: no adverse event Internal Medicine Objective - Physical Exam Vitals and I&O: Vital Signs Temp 97.4 F 01/05/19 20:18 Pulse 66 01/05/19 20:18 Resp 20 01/05/19 20:18 BP 137/57 01/05/19 20:18 Pulse Ox 100 01/05/19 20:18 Intake & Output 01/05/19 01/05/19 01/06/19 06:59 18:59 06:59 Intake Total 240 400 120 Balance 240 400 120 Intake: Oral 240 400 120 Other: # Voids 2 2 # Bowel Movements 0 0 Active Medications: Current Medications Acetaminophen (Tylenol) 650 mg PO Q4HR PRN PRN Reason: Moderate Pain / Temp above 100 Stop: 03/02/19 03:23 Acetaminophen (Tylenol) 325 mg PO Q4HR PRN PRN Reason: Mild Pain or Fever >101 Stop: 03/02/19 21:02 Al Hydrox/Mg Hydrox/Simethicone (Maalox) 30 ml PO Q4HR PRN PRN Reason: GI DISTRESS Stop: 03/02/19 21:02 Dextrose (D50w) 50 ml IVP PRN PRN PRN Reason: Blood Glucose less than 70 Stop: 03/02/19 21:04 Dextrose (Glutose 40%) 18.75 gm PO PRN PRN PRN Reason: Blood Glucose less than 70 Stop: 03/02/19 21:04 Docusate Sodium (Colace) 100 mg PO DAILY [facility] Stop: 03/03/19 08:59 Last Admin: 01/05/19 09:03 Dose: Not Given Glucagon (Glucagen) 1 mg IM PRN PRN PRN Reason: Blood Glucose less than 70 Stop: 03/02/19 21:04 Haloperidol Lactate (Haldol Concentrate 10mg/5ml Susp) 5 mg PO BID [facility]; Protocol Stop: 03/02/19 08:59 Last Admin: 01/05/19 16:28 Dose: Not Given Lorazepam (Ativan) 0.5 mg PO Q4HR PRN; Protocol PRN Reason: Anxiety Stop: 01/31/19 03:41 Magnesium Hydroxide (Milk Of Magnesia) 30 ml PO HS PRN PRN Reason: Constipation Magnesium Hydroxide (Milk Of Magnesia) 30 ml PO DAILY [facility] Stop: 03/03/19 08:59 Last Admin: 01/05/19 09:03 Dose: Not Given Metformin HCl (Glucophage) 1,000 mg PO BID [facility] Stop: 03/03/19 08:59 Last Admin: 01/05/19 16:28 Dose: Not Given Multivitamins/Vitamin C (Theragran) 1 tab PO DAILY [facility] Stop: 03/03/19 08:59 Last Admin: 01/05/19 09:03 Dose: Not Given Trihexyphenidyl HCl (Artane) 2 mg PO BID [facility] Stop: 03/03/19 08:59 Last Admin: 01/05/19 16:28 Dose: Not Given Valproate Sodium (Depakene) 500 mg PO BID [facility]; Protocol Stop: 03/06/19 08:59 Last Admin: 01/05/19 16:28 Dose: Not Given Zolpidem Tartrate (Ambien) 5 mg PO HSMR1 PRN PRN Reason: Insomnia Stop: 03/02/19 03:41 General: alert, demented HEENT: NC/AT, PERRLA, EOMI, anicteric sclerae, throat clear Neck: Supple, No JVD, No thyromegaly, +2 carotid pulse wo bruit, No LAD Lungs: CTAB Cardiovascular: RRR, Normal S1, Normal S2, without murmur Abdomen: soft, non-tender, non-distended Extremities: clear Neurological: no change Internal Medicine Assmt/Plan - Assessment Assessment: 1.DM. 2.PVD OF LOWER EXTREM. 3.PSYCHOSIS - Plan Plan: CONTINUE ON CURRENT MEDICATION AND DIET.
[2019-01-06] MEDS: Multivitamin Tab PO SCH (09:16)
[2019-01-06] MEDS: Haldol Oral Sol.(concentrate) 10 mg/5 mL Udc PO SCH ×2 (09:17→16:55)
[2019-01-06] MEDS: Magnesium Hydroxide (MOM) 30 mL UDC PO SCH (09:18)
--- NOTE | 2019-01-06 19:45 | Internal Medicine Prog Note ---
Internal Medicine Subjective - Subjective Service Date: 01/06/19 Patient seen and examined:: with staff (SHE STILL NOT COMPLIANT) Patient is:: awake, verbal, in bed, talking, agitated Per staff patient has:: no adverse event Internal Medicine Objective - Physical Exam Vitals and I&O: Vital Signs Temp 97.6 F 01/06/19 14:00 Pulse 64 01/06/19 14:00 Resp 20 01/06/19 19:16 BP 134/70 01/06/19 14:00 Pulse Ox 97 01/06/19 14:00 Intake & Output 01/06/19 01/06/19 01/07/19 06:59 18:59 06:59 Intake Total 240 1200 Balance 240 1200 Intake: Oral 240 1200 Other: # Voids 2 # Bowel Movements 0 1 Active Medications: Current Medications Acetaminophen (Tylenol) 650 mg PO Q4HR PRN PRN Reason: Moderate Pain / Temp above 100 Stop: 03/02/19 03:23 Acetaminophen (Tylenol) 325 mg PO Q4HR PRN PRN Reason: Mild Pain or Fever >101 Stop: 03/02/19 21:02 Al Hydrox/Mg Hydrox/Simethicone (Maalox) 30 ml PO Q4HR PRN PRN Reason: GI DISTRESS Stop: 03/02/19 21:02 Dextrose (D50w) 50 ml IVP PRN PRN PRN Reason: Blood Glucose less than 70 Stop: 03/02/19 21:04 Dextrose (Glutose 40%) 18.75 gm PO PRN PRN PRN Reason: Blood Glucose less than 70 Stop: 03/02/19 21:04 Docusate Sodium (Colace) 100 mg PO DAILY [facility] Stop: 03/03/19 08:59 Last Admin: 01/06/19 09:16 Dose: 100 mg Glucagon (Glucagen) 1 mg IM PRN PRN PRN Reason: Blood Glucose less than 70 Stop: 03/02/19 21:04 Haloperidol Lactate (Haldol Concentrate 10mg/5ml Susp) 5 mg PO BID [facility]; Protocol Stop: 03/02/19 08:59 Last Admin: 01/06/19 16:55 Dose: 5 mg Lorazepam (Ativan) 0.5 mg PO Q4HR PRN; Protocol PRN Reason: Anxiety Stop: 01/31/19 03:41 Magnesium Hydroxide (Milk Of Magnesia) 30 ml PO HS PRN PRN Reason: Constipation Magnesium Hydroxide (Milk Of Magnesia) 30 ml PO DAILY [facility] Stop: 03/03/19 08:59 Last Admin: 01/06/19 09:18 Dose: 30 ml Metformin HCl (Glucophage) 1,000 mg PO BID [facility] Stop: 03/03/19 08:59 Last Admin: 01/06/19 16:55 Dose: Not Given Multivitamins/Vitamin C (Theragran) 1 tab PO DAILY [facility] Stop: 03/03/19 08:59 Last Admin: 01/06/19 09:16 Dose: 1 tab Trihexyphenidyl HCl (Artane) 2 mg PO BID [facility] Stop: 03/03/19 08:59 Last Admin: 01/06/19 16:55 Dose: Not Given Valproate Sodium (Depakene) 500 mg PO BID [facility]; Protocol Stop: 03/06/19 08:59 Last Admin: 01/06/19 16:55 Dose: 500 mg Zolpidem Tartrate (Ambien) 5 mg PO HSMR1 PRN PRN Reason: Insomnia Stop: 03/02/19 03:41 General: alert, demented HEENT: NC/AT, PERRLA, EOMI, anicteric sclerae, throat clear Neck: Supple, No JVD, No thyromegaly, +2 carotid pulse wo bruit, No LAD Lungs: CTAB Cardiovascular: RRR, Normal S1, Normal S2, without murmur Abdomen: soft, non-tender, non-distended Extremities: clear Neurological: no change Internal Medicine Assmt/Plan - Assessment Assessment: 1.DM. 2.PVD OF LOWER EXTREM. 3.PSYCHOSIS - Plan Plan: CONTINUE ON CURRENT MEDICATION AND DIET. Nutritional Asmnt/Malnutr-PDOC - Dietary Evaluation Malnutrition Findings (Please click <Entered> for more info): Nutritional Asmnt/Malnutrition Start: 01/05/19 21: 07 Text: Status: Active Freq: Protocol: Document 01/05/19 21:08 [email or web address] (Rec: 01/05/19 21:23 [email or web address]) Nutritional Asmnt/Malnutrition Patient General Information Nutritional Screening Moderate Risk Diagnosis psychosis Pertinent Medical Hx/Surgical Hx DM, left BKA Subjective Information Pt refusing medications, eating well- 100% of meals Current Diet Order/ Nutrition Support Consistent CHO/Cardiac: no concentrated sweets; no added sodium Patient / S.O Not Indicated Pertinent Medications maalox, colace, MOM, metformin , theragran Pertinent Labs no current lab results Nutritional Hx/Data Height 1.65 m Height (Calculated Centimeters) 165.1 Current Weight (lbs) 81.647 kg Weight (Calculated Kilograms) 81.6 Weight (Calculated Grams) 38403.6 [place] Body Weight 56.8 % [place] Body Weight 144 Body Mass Index (BMI) 29.9 Weight Status Obese GI Symptoms GI Symptoms None Last BM n/a- no BM yet. Food Allergies No Current %PO Good (75-100%) Estimated Nutritional Goals BEE in Kcals: Using Current wt Calories/Kcals/Kg 15-20 Kcals Calculated 4267-9114 Protein: Using Current wt Protein g/k.8-1 Protein Calculated 65-81 Fluid: ml 5691-9013 (1 ml/kcal) Nutritional Problem 1. Problem Problem No nutrition diagnosis at this time- PO intakes adequate, diet rx adequate to meet needs , appropriate given medical hx ; no acute nutritional concerns. Intervention/Recommendation Comments suggest continue current nutrition intervention (ccho/ cardiac diet rx). Expected Outcomes/Goals Expected Outcomes/Goals Maintain PO intakes 75-100% of meals Electronically signed by: Lillian Davidson, MPH, RDN Clinical Dietitian 01/05/19 9: 24 PM
--- NOTE | 2019-01-06 22:14 | Progress Notes ---
DATE: 01/06/2019 SUBJECTIVE: Chart was reviewed and the patient interviewed. Also discussed the patient's condition with the staff and reviewed records and labs. The patient is still restless and she is still in angry and in irritable mood, but slightly calmer than before. She also is still easily agitated, but easier to redirect her. The patient also still needs lots of redirections. The patient is still refusing to comply with taking her medications. ASSESSMENT: The patient is still psychotic and still needs close monitoring. TREATMENT PLAN: We will continue monitoring her behavior and her condition. Also, continue to work on her poor impulse control and her compliance with taking her medications. JOB# [id number]
[2019-01-07] MEDS: Haldol Oral Sol.(concentrate) 10 mg/5 mL Udc PO SCH ×2 (09:01→16:23)
[2019-01-07] MEDS: Magnesium Hydroxide (MOM) 30 mL UDC PO SCH (09:03)
[2019-01-07] MEDS: Multivitamin Tab PO SCH (09:03)
--- NOTE | 2019-01-07 11:05 | Discharge Summary ---
DATE OF DISCHARGE: 01/07/2019 THE PATIENT'S AGE: 73. SEX: Female. PHYSICIAN: Dr. Garcia. FINAL DIAGNOSIS: PRIMARY DIAGNOSIS: Unspecified psychosis. SECONDARY DIAGNOSIS: Dementia, moderate to severe. REASON FOR HOSPITALIZATION: The patient was admitted to the hospital from [facility] because of physical aggression and agitation towards the staff and inability to follow directions. HOSPITAL COURSE: The patient continued to be agitated and restless and in irritable mood. The patient was also in the beginning refusing to take medications and the patient was given Haldol liquid in a dose of 5 mg twice a day. Gradually, the patient's affect was brighter. The patient was less agitated and less irritable. She also was interacting more. The patient also is sleeping better. The patient was discharged from the hospital back to [place]. Physical exam of the patient showed no major medical problems. The patient also has no major abnormal blood work. AFTER DISCHARGE PLANS: The patient discharged from the hospital to [place]. The patient also would be followed there. EXPECTED OUTCOME AFTER DISCHARGE: Fair if the patient continues with her outpatient treatment and follow up with discharge plans. [facility]# [id number]
--- NOTE | 2019-01-07 14:23 | Internal Medicine Prog Note ---
Internal Medicine Subjective - Subjective Service Date: 01/07/19 Patient seen and examined:: with staff Patient is:: awake, verbal, in bed, talking, agitated Per staff patient has:: no adverse event Internal Medicine Objective - Physical Exam Vitals and I&O: Vital Signs Temp 98 F 01/07/19 14:00 Pulse 100 01/07/19 14:00 Resp 20 01/07/19 14:00 BP 113/51 01/07/19 14:00 Pulse Ox 98 01/07/19 14:00 Intake & Output 01/06/19 01/07/19 01/07/19 18:59 06:59 18:59 Intake Total 1200 Balance 1200 Intake: Oral 1200 Other: # Bowel Movements 1 Active Medications: Current Medications Acetaminophen (Tylenol) 650 mg PO Q4HR PRN PRN Reason: Moderate Pain / Temp above 100 Stop: 03/02/19 03:23 Acetaminophen (Tylenol) 325 mg PO Q4HR PRN PRN Reason: Mild Pain or Fever >101 Stop: 03/02/19 21:02 Al Hydrox/Mg Hydrox/Simethicone (Maalox) 30 ml PO Q4HR PRN PRN Reason: GI DISTRESS Stop: 03/02/19 21:02 Dextrose (D50w) 50 ml IVP PRN PRN PRN Reason: Blood Glucose less than 70 Stop: 03/02/19 21:04 Dextrose (Glutose 40%) 18.75 gm PO PRN PRN PRN Reason: Blood Glucose less than 70 Stop: 03/02/19 21:04 Docusate Sodium (Colace) 100 mg PO DAILY [facility] Stop: 03/03/19 08:59 Last Admin: 01/07/19 09:01 Dose: 100 mg Glucagon (Glucagen) 1 mg IM PRN PRN PRN Reason: Blood Glucose less than 70 Stop: 03/02/19 21:04 Haloperidol Lactate (Haldol Concentrate 10mg/5ml Susp) 5 mg PO BID [facility]; Protocol Stop: 03/02/19 08:59 Last Admin: 01/07/19 09:01 Dose: 5 mg Lorazepam (Ativan) 0.5 mg PO Q4HR PRN; Protocol PRN Reason: Anxiety Stop: 01/31/19 03:41 Magnesium Hydroxide (Milk Of Magnesia) 30 ml PO HS PRN PRN Reason: Constipation Magnesium Hydroxide (Milk Of Magnesia) 30 ml PO DAILY [facility] Stop: 03/03/19 08:59 Last Admin: 01/07/19 09:03 Dose: 30 ml Metformin HCl (Glucophage) 1,000 mg PO BID [facility] Stop: 03/03/19 08:59 Last Admin: 01/07/19 09:17 Dose: Not Given Multivitamins/Vitamin C (Theragran) 1 tab PO DAILY [facility] Stop: 03/03/19 08:59 Last Admin: 01/07/19 09:03 Dose: 1 tab Trihexyphenidyl HCl (Artane) 2 mg PO BID [facility] Stop: 03/03/19 08:59 Last Admin: 01/07/19 09:17 Dose: Not Given Valproate Sodium (Depakene) 500 mg PO BID [facility]; Protocol Stop: 03/06/19 08:59 Last Admin: 01/07/19 09:04 Dose: 500 mg Zolpidem Tartrate (Ambien) 5 mg PO HSMR1 PRN PRN Reason: Insomnia Stop: 03/02/19 03:41 General: alert, demented HEENT: NC/AT, PERRLA, EOMI, anicteric sclerae, throat clear Neck: Supple, No JVD, No thyromegaly, +2 carotid pulse wo bruit, No LAD Lungs: CTAB Cardiovascular: RRR, Normal S1, Normal S2, without murmur Abdomen: soft, non-tender, non-distended Extremities: clear Neurological: no change Internal Medicine Assmt/Plan - Assessment Assessment: 1.DM. 2.PVD OF LOWER EXTREM. 3.PSYCHOSIS - Plan Plan: CONTINUE ON CURRENT MEDICATION AND DIET. Nutritional Asmnt/Malnutr-PDOC - Dietary Evaluation Malnutrition Findings (Please click <Entered> for more info): Nutritional Asmnt/Malnutrition Start: 01/05/19 21: 07 Text: Status: Active Freq: Protocol: Document 01/05/19 21:08 [email or web address] (Rec: 01/05/19 21:23 [email or web address]) Nutritional Asmnt/Malnutrition Patient General Information Nutritional Screening Moderate Risk Diagnosis psychosis Pertinent Medical Hx/Surgical Hx DM, left BKA Subjective Information Pt refusing medications, eating well- 100% of meals Current Diet Order/ Nutrition Support Consistent CHO/Cardiac: no concentrated sweets; no added sodium Patient / S.O Not Indicated Pertinent Medications maalox, colace, MOM, metformin , theragran Pertinent Labs no current lab results Nutritional Hx/Data Height 1.65 m Height (Calculated Centimeters) 165.1 Current Weight (lbs) 81.647 kg Weight (Calculated Kilograms) 81.6 Weight (Calculated Grams) 59015.6 [place] Body Weight 56.8 % [place] Body Weight 144 Body Mass Index (BMI) 29.9 Weight Status Obese GI Symptoms GI Symptoms None Last BM n/a- no BM yet. Food Allergies No Current %PO Good (75-100%) Estimated Nutritional Goals BEE in Kcals: Using Current wt Calories/Kcals/Kg 15-20 Kcals Calculated 6145-4318 Protein: Using Current wt Protein g/k.8-1 Protein Calculated 65-81 Fluid: ml 3510-7951 (1 ml/kcal) Nutritional Problem 1. Problem Problem No nutrition diagnosis at this time- PO intakes adequate, diet rx adequate to meet needs , appropriate given medical hx ; no acute nutritional concerns. Intervention/Recommendation Comments suggest continue current nutrition intervention (ccho/ cardiac diet rx). Expected Outcomes/Goals Expected Outcomes/Goals Maintain PO intakes 75-100% of meals Electronically signed by: Lillian Davidson, MPH, RDN Clinical Dietitian 01/05/19 9: 24 PM
== END 2019-01-07 16:20 | DRG 885 ==
LOC: ER 21:28 → GERO2 23:42
PROVIDERS: ADMIT Psychiatry & Neurology Psychiatry; ATTEND Psychiatry & Neurology Psychiatry
DX: F29 Unspecified psychosis not due to a substance or known physiological condition (principal); Z97.13 Presence of artificial right leg (complete) (partial); E11.51 Type 2 diabetes mellitus with diabetic peripheral angiopathy without gangrene; F03.90 Unspecified dementia, unspecified severity, without behavioral disturbance, psychotic disturbance, mood disturbance, and anxiety; Z79.899 Other long term (current) drug therapy
CPT/HCPCS: 83036-90

== ENCOUNTER 2019-02-10 19:21 | Inpatient (IN) | payer MEDICARE, MEDICAID ==
--- NOTE | 2019-02-10 19:53 | ED Physician Chart ---
ED Chief Complaint/HPI - Patient Information Date Seen:: 02/10/19 Time Seen:: 19:45 Chief Complaint:: cellulitis left foot History of Present Illness:: Patient has had better cellulitis of the left foot for an unspecified length of time. She has a postop shoe on the left foot and refuses to let me remove it to visualize a left hip. Allergies:: Allergies Allergy/AdvReac Type Severity Reaction Status Date / Time Insulins Allergy Verified 09/14/17 21:20 Vitals:: Vital Signs - 8 hr 02/10/19 19:22 Temp 98.3 F HR 60 RR 18 BP 101/56 O2 Sat % 99 Historian:: Patient ED Review of Systems - Review of Systems General/Constitutional: No fever Skin: Skin lesions Head: No headache Eyes: No loss of vision ENT: No earache Neck: No neck pain, No swelling Cardio Vascular: No chest pain, No palpitations Pulmonary: No SOB GI: No nausea, No vomiting G/U: No dysuria Musculoskeletal: No bone or joint pain, No back pain, No muscle pain Endocrine: No polyuria Psychiatric: Prior psych history ED Past Medical History - Past Medical History Past Medical History: DM, PUD/GERD, Other (cellulitis left lower limb; peripheral vascular disease; cataract; paranoid schizophrenia; major depression ; insomnia; anxiety) Family History: Other (unavailable) Social History: Care Facility Surgical History: other (right BK amputation) Psychiatricy History: Depression, Schizophrenia Medication: Reviewed Family Medical History - Family Member Mother History Unknown: Yes Ethnicity: Unknown Living Status: Unknown Hx Family Cancer: (Unknown) Hx Family Coronary Artery Disease: (Unknown) Hx Family Congestive Heart Failure: (Unknown) Hx Family Hypertension: (Unknown) Hx Family Stroke: (Unknown) Hx Family Diabetes: (Unknown) Hx Family Seizures: (Unknown) Hx Family Dementia: (Unknown) Hx Family AIDS: (Unknown) Hx Family HIV: No Hx Family COPD: (Unknown) Hx Family Hepatitis: (Unknown) Hx Family Psychiatric Problems: (Unknown) Hx Family Tuberculosis: (Unknown) ED Physical Exam - Physical Examination General/Constitutional: Awake, Well-developed, well-nourished, Alert, No distress Other Gen/Cons comments:: Patient refused to have her left she removed so I could visualize the head; she also called me an MF. Patient refuses physical examination. Head: Atraumatic Eyes: Lids, conjuctiva normal Skin: Nl inspection ENMT: External ears, nose nl Neck: No mass Respiratory: Nl effort/Exclusion Other Cardio Vascular comments:: refused Cardiac auscultation Other GI comments:: refused abdominal examination Other comments:: refused exam Other Extremities comments:: Right BK amputation ED Assessment - Assessment General Assessment: I contacted Dr. Harding who wished the patient admitted to [facility]. Patient will have to be placed on a 5150. Patient at about 2045 allowed me to look at her left foot and it was swollen with erythema of the dorsum. Patient endorsed to Dr. Koch at 0700. ED Septic Shock - <6hrs of presentation: Vital Signs: Vital Signs - 8 hr 02/10/ 19:22 Temp 98.3 F HR 60 RR 18 BP 101/56 O2 Sat % 99 ED Reassessment (Disposition) - Reassessment Reassessment Condition:: Unchanged - Diagnosis Diagnosis:: Cellulitis left foot; status post BK amputation right leg; aggressive behavior
[2019-02-11] MEDS ORDERED: Haloperidol Lactate 5 mg/mL 1mL Vial IM STA (11:42)
[2019-02-11] MEDS ORDERED: Haloperidol Lactate 5 mg/mL 1mL Vial ONE (11:44)
[2019-02-11] MEDS ORDERED: Vancomycin HCl 1.5 GM in Sodium Chloride 0.9% 500 ML IV ONE (14:30)
[2019-02-11 16:10] VITALS: BP 112/67
[2019-02-11] MEDS ORDERED: VTE Chemical Prophylaxis Screen/Admission MC PRN (17:14)
[2019-02-11 20:42] LABS: % BASOPHILS 1.2 % (0.0-2.0); % EOSINOPHILS 2.8 % (0.0-5.0); % LYMPHOCYTES 32.3 % (20.0-50.0); % MONOCYTES 8.5 % (2.0-10.0); % NEUTROPHILS 55.2 % (40.0-80.0); BASOPHILE ABSOLUTE 0.1 Th/cumm (0-0.2); EOSINOPHILE ABSOLUTE 0.2 Th/cmm (0.1-0.4); LYMPHOCYTE ABSOLUTE 2.1 Th/cmm (1.5-3.0); MEAN CELL VOLUME 85.8 fl (81-100); MEAN CORPUSCULAR HEMOGLOBIN 29.3 pg (27.0-31.0); MEAN CORPUSCULAR HGB CONC 34.2 pg (28.0-36.0); MONOCYTE ABSOLUTE 0.6 Th/cmm (0.3-1.0); NEUTROPHILE ABSOLUTE 3.5 Th/cmm (1.8-8.0); PLATELET COUNT 257 Th/cmm (150-400); RED BLOOD COUNT 4.08 Mil/cmm (3.80-5.20); RED CELL DISTRIBUTION WIDTH 13.4 % (11.5-20.0); WHITE BLOOD COUNT 6.5 Th/cmm (4.8-10.8)
[2019-02-11 21:19] LABS: ANION GAP 11.8 (7.0-16.0); BUN - UREA NITROGEN 14 mg/dL (7-25); CALCIUM SERUM 8.9 mg/dL (8.6-10.3); CARBON DIOXIDE 26.3 mEq/L (21.0-31.0); CHLORIDE 106 mEq/L (98-107); CREATININE - SERUM 0.8 mg/dL (0.6-1.2); GLUCOSE 82 mg/dL (70-105); POTASSIUM SERUM 4.1 mEq/L (3.5-5.1); SODIUM SERUM 140 mEq/L (136-145)
[2019-02-11] MEDS ORDERED: GLUCAGON HCl 1 MG KIT IM PRN (23:49)
[2019-02-11] MEDS ORDERED: Dextrose 50% 50 mL Abboject IVP PRN (23:49)
--- NOTE | 2019-02-12 00:07 | History & Physical ---
ADMIT DATE: 02/11/2019 CHIEF COMPLAINT: Cellulitis of the left lower extremity. HISTORY OF PRESENT ILLNESS: The patient is a 73-year-old female with a long history of diabetes mellitus, psychosis, admitted to [facility] with cellulitis of the left lower extremity, started on IV antibiotic. No fever, no chills, no nausea and vomiting. The patient is a poor historian. PAST MEDICAL HISTORY: Significant for diabetes mellitus, psychosis. PAST SURGICAL HISTORY: No recent surgery. ALLERGIES: None. MEDICATIONS: Follow admission reconciliation. SOCIAL HISTORY: History of smoking, no alcohol or drug. FAMILY HISTORY: Noncontributory. REVIEW OF SYSTEMS: RENAL SYSTEM: No history of chronic renal disorder. CARDIOVASCULAR SYSTEM: No coronary artery disease. ENDOCRINE SYSTEM: She has history of diabetes mellitus. GASTROINTESTINAL SYSTEM: No upper or lower GI bleeding. NEUROLOGICAL SYSTEM: No seizure disorder. SKELETOMUSCULAR SYSTEM: No muscular dystrophy. HEMATOLOGICAL SYSTEM: No bleeding tendency. RESPIRATORY SYSTEM: No asthma. GENITOURINARY SYSTEM: No dysuria or hematuria. PHYSICAL EXAMINATION: GENERAL: She is awake, not coherent, confused. VITAL SIGNS: Temperature 97.2, heart rate 86, blood pressure 116/72. HEENT: Normocephalic. Pupils reactive to light and accommodation. Sclerae clear. NECK: Supple. Negative for lymphadenopathy, JVD or bruit. CHEST: Entry of air bilaterally normal. No rhonchi or wheezing. HEART: S1, S2 normal. No gallop rhythm. ABDOMEN: Soft, bowel sounds positive. EXTREMITIES: Significant for cellulitis of the left foot. NEUROLOGIC: She is awake, not coherent. LABORATORY DATA: White blood cells 6.5, hemoglobin 12, hematocrit 35, platelet is 257. Sodium 140, potassium 4.1, BUN 14, creatinine 0.8. ASSESSMENT: 1. Cellulitis of the left lower extremity. 2. Diabetes mellitus. 3. Psychosis. 4. Degenerative joint disease. PLAN: The patient admitted to the hospital under Dr. Harding's service, IV antibiotic, IV fluid, 1800 calorie cardiac diet. Psych evaluation ordered. The patient is a full code. JOB# [id number]
[2019-02-12] MEDS ORDERED: INSULIN LISPRO SLIDING SCALE 100 UNITS/ML UNIT SUBQ SCH (07:30)
[2019-02-12] MEDS ORDERED: VALPROIC ACID 500 MG PO SCH (09:00)
[2019-02-12] MEDS: Multivitamin Tab PO SCH (09:09)
[2019-02-12 11:09] LABS: HEP A AB IGM Negative (Negative); HEP B CORE IGM Negative (Negative); HEP B SURFACE AG QL Negative (Negative); HEP C ANTIBODY <0.1 s/co ratio (0.0-0.9)
--- NOTE | 2019-02-12 18:24 | Internal Medicine Prog Note ---
Internal Medicine Subjective - Subjective Service Date: 02/12/19 Patient seen and examined:: with staff (SHE IS DOING BETTER,LESS AGITATED) Patient is:: awake, non-verbal, in bed, confused Per staff patient has:: no adverse event Internal Medicine Objective - Results Result Diagrams: 02/11/19 20:00 02/11/19 20:00 Recent Labs: Laboratory Last Values WBC 6.5 Th/cmm (4.8-10.8) 02/11/19 20:00 RBC 4.08 Mil/cmm (3.80-5.20) 02/11/19 20:00 Hgb 12.0 gm/dL (12-16) 02/11/19 20:00 Hct 35.0 % (41.0-60) L 02/11/19 20:00 MCV 85.8 fl (81-100) 02/11/19 20:00 MCH 29.3 pg (27.0-31.0) 02/11/19 20:00 MCHC Differential 34.2 pg (28.0-36.0) 02/11/19 20:00 RDW 13.4 % (11.5-20.0) 02/11/19 20:00 Plt Count 257 Th/cmm (150-400) 02/11/19 20:00 MPV 7.3 fl 02/11/19 20:00 Neutrophils % 55.2 % (40.0-80.0) 02/11/19 20:00 Lymphocytes % 32.3 % (20.0-50.0) 02/11/19 20:00 Monocytes % 8.5 % (2.0-10.0) 02/11/19 20:00 Eosinophils % 2.8 % (0.0-5.0) 02/11/19 20:00 Basophils % 1.2 % (0.0-2.0) 02/11/19 20:00 Sodium 140 mEq/L (136-145) 02/11/19 20:00 Potassium 4.1 mEq/L (3.5-5.1) 02/11/19 20:00 Chloride 106 mEq/L (98-107) 02/11/19 20:00 Carbon Dioxide 26.3 mEq/L (21.0-31.0) 02/11/19 20:00 Anion Gap 11.8 (7.0-16.0) 02/11/19 20:00 BUN 14 mg/dL (7-25) 02/11/19 20:00 Creatinine 0.8 mg/dL (0.6-1.2) 02/11/19 20:00 Est GFR ( Amer) TNP 02/11/19 20:00 Est GFR (Non-Af Amer) TNP 02/11/19 20:00 BUN/Creatinine Ratio 17.5 02/11/19 20:00 Glucose 82 mg/dL (70-105) 02/11/19 20:00 POC Glucose 105 MG/DL (70 - 105) 02/11/19 13:41 Calcium 8.9 mg/dL (8.6-10.3) 02/11/19 20:00 Random Vancomycin 22.1 ug/mL (5.0-40.0) 02/12/19 05:00 Hepatitis A IgM Ab Negative (Negative) 02/11/19 20:00 Hep Bs Antigen Negative (Negative) 02/11/19 20:00 Hep B Core IgM Ab Negative (Negative) 02/11/19 20:00 Hepatitis C Antibody <0.1 s/co ratio (0.0-0.9) 02/11/19 20:00 HIV 1&2 Antibody Screen NEGATIVE (NEG) 02/11/19 20:00 - Physical Exam Vitals and I&O: Vital Signs Temp 97.7 F 02/12/19 16:00 Pulse 63 02/12/19 16:00 Resp 17 02/12/19 16:00 BP 118/58 02/12/19 16:00 Pulse Ox 98 02/12/19 16:00 Intake & Output 02/11/19 02/12/19 02/12/19 18:59 06:59 18:59 Weight (lbs) 66.27 kg 66.224 kg Other: # Voids 3 # Bowel Movements 0 Weight Source Bedscale Active Medications: Current Medications Acetaminophen (Tylenol) 650 mg PO Q4H PRN PRN Reason: Moderate Pain / Temp above 100 Stop: 04/12/19 23:45 Dextrose (D50w) 50 ml IVP PRN PRN PRN Reason: Blood Glucose less than 70 Stop: 04/12/19 23:48 Dextrose (Glutose 40%) 18.75 gm PO PRN PRN PRN Reason: Blood Glucose less than 70 Stop: 04/12/19 23:48 Divalproex Sodium (Depakote Dr) 500 mg PO BID [facility]; Protocol Stop: 04/13/19 08:59 Last Admin: 02/12/19 16:36 Dose: 500 mg Docusate Sodium (Colace) 250 mg PO DAILY YAHAIRA Stop: 04/13/19 08:59 Last Admin: 02/12/19 09:09 Dose: 250 mg Glucagon (Glucagen) 1 mg IM PRN PRN PRN Reason: Blood Glucose less than 70 Stop: 04/12/19 23:48 Vancomycin HCl 1 gm/ Sodium (Chloride) 250 mls @ 165 mls/hr IV Q24HR@1400 YAHAIRA Stop: 04/13/19 13:59 Last Admin: 02/12/19 13:50 Dose: 165 mls/hr Lorazepam (Ativan) 0.5 mg PO Q6HR PRN; Protocol PRN Reason: Anxiety Stop: 04/13/19 13:29 Metformin HCl (Glucophage) 1,000 mg PO BID [facility] Stop: 04/13/19 08:59 Last Admin: 02/12/19 16:37 Dose: 1,000 mg Miscellaneous (Vancomycin Iv Per Pharmacy) 1 [facility] PRN PRN PRN Reason: PROTOCOL Stop: 04/12/19 13:53 Miscellaneous (Vte Chemical Prophylaxis Screen/ Admission) 1 [facility] PRN PRN PRN Reason: PROTOCOL Stop: 04/12/19 17:13 Multivitamins/Vitamin C (Theragran) 1 tab PO DAILY YAHAIRA Stop: 04/13/19 08:59 Last Admin: 02/12/19 09:09 Dose: 1 tab Trihexyphenidyl HCl (Artane) 2 mg PO BID [facility] Stop: 04/13/19 08:59 Last Admin: 02/12/19 16:37 Dose: 2 mg General: alert, demented, thin HEENT: NC/AT, PERRLA, EOMI, anicteric sclerae, throat clear Neck: Supple, No JVD, No thyromegaly, +2 carotid pulse wo bruit, No LAD, + JVD Lungs: CTAB Cardiovascular: RRR, Normal S1, Normal S2, without murmur Abdomen: soft, non-tender, non-distended Extremities: clear Neurological: no change Internal Medicine Assmt/Plan - Assessment Assessment: 1.CELLULITIS OF LEFT LOWER FOOT 2.DM. 3.PVD OF LOWER EXTREM. 4.PSYCHOSIS - Plan Plan: CONTINUE ON IV ABS. Nutritional Asmnt/Malnutr-PDOC - Dietary Evaluation Malnutrition Findings (Please click <Entered> for more info): Nutritional Asmnt/Malnutrition Start: 02/12/19 11: 25 Text: Status: Complete Freq: Protocol: Document 02/12/19 11:26 HAYLIE (Rec: 02/12/19 12:04 [email or web address] [email or web address]) Nutritional Asmnt/Malnutrition Patient General Information Nutritional Screening High Risk Consult Diagnosis Cellulitis Pertinent Medical Hx/Surgical Hx Diabetes mellitus, psychosis Subjective Information Consult received for Meet Score 10. Patient with left foot cellulitis, right foot amputation below the ankle. Per nursing notes, patient has been refusing some labs draws . Per nursing notes, patient eating ~80% of meals. Current Diet Order/ Nutrition Support 60 gm CCHO Patient / S.O Not Indicated Pertinent Medications D50W, Colace, Glucagon, Metformin, Abx, Theragran Pertinent Labs (02/11) Labs WNl Nutritional Hx/Data Height 1.65 m Height (Calculated Centimeters) 165.1 Current Weight (lbs) 66.224 kg Weight (Calculated Kilograms) 66.2 Weight (Calculated Grams) 19169.5 [place] Body Weight 125 % [place] Body Weight 116 Body Mass Index (BMI) 24.3 Recent Weight Change No Weight Status Approriate GI Symptoms GI Symptoms None Last BM none noted since admission Difficult in: None Food Allergies No Cultural/Ethnic/Cheondoism Belief none indicated Usual diet at home unknown Skin Integrity/Comment: Meet 10, left foot cellulitis, right foot amputation below the ankle. Current %PO Good (75-100%) Estimated Nutritional Goals BEE in Kcals: Using Current wt Calories/Kcals/Kg 66.3kg 25-30 kcal/kg Kcals Calculated ~7584-2044 kcal/day Protein: Using Current wt Protein g/k-1.2 gm/kg Protein Calculated ~65-80 gm/day Fluid: ml ~9873-1775 ml/day (1 ml/kcal) Nutritional Problem 1. Problem Problem Increased nutrient needs related to Etiology impaired skin integrity aeb Signs/Symptoms: left foot cellulitis Intervention/Recommendation Comments 1. Continue 60 gm CCHO diet as tolerated by patient. 2. Continue MVI; consider adding Vitamin C for wound healing. 3. If oral intake drops below 75%, consider adding nutrition supplement. Expected Outcomes/Goals Expected Outcomes/Goals Adequate nutrition to meet >75 % estimated needs, improved labs, skin remains intact, weight maintenance or trend toward ideal body weight. F/U MR 02/15-02/17
--- NOTE | 2019-02-13 02:49 | Consultation ---
DATE OF CONSULTATION: 02/12/2019 IDENTIFYING INFORMATION: The patient is a 73-year-old female. HISTORY OF PRESENT ILLNESS: The patient was a poor historian, unable to carry a conversation with a history of psychosis, unable to carry or make safe plan for self-care, unable to give much information. PAST PSYCHIATRIC HISTORY: History of Psychosis. MEDICAL HISTORY: Cellulitis of the left lower extremity, diabetes mellitus, degenerative joint disease. ALLERGIES: THE PATIENT IS ALLERGIC TO INSULIN. MEDICATIONS: The patient is diabetic. She is on Artane 2 mg twice a day, IV antibiotics. FAMILY AND SOCIAL HISTORY: Unobtainable. MENTAL STATUS EXAMINATION: The patient is appropriately dressed, not very groomed. She was alert, unable to carry on a conversation and coherent and unable to participate in meaningful conversation or make safe plan for self-care. Her long and short term memory is poor ____ tell me she is sleeping or eating well or if she is hearing voices. Her insight about her illness is poor. Judgment is poor. IMPRESSION: Psychosis, not otherwise specified, probably dementia. PLAN: I would recommend to continue with her current medication of Depakote 500 mg twice a day and that may help her agitation. I am not sure why she is taking Artane because she does not really need it unless she is on any antipsychotic, which I do not see any. I am not sure yet she need to be on antipsychotic. She is unable to express herself very well. The patient needs follow up with the psychiatrist upon discharge. Thank you very much for allowing me to participate in the care of this most interesting lady. [facility]# [id number]
[2019-02-13] MEDS: Multivitamin Tab PO SCH (08:10)
--- NOTE | 2019-02-13 14:51 | Progress Notes ---
DATE: 02/13/2019 SUBJECTIVE: Case was discussed with staff of the patient. The patient today was able to talk, but she was very paranoid. She said that she knew me from before and that I am trying to harm her. Continues to be unpredictable and impulsive, unable to carry a reasonable conversation, consumed by her anger. She is on Artane; however, I am not sure if she is on any antipsychotics. So, I will be initiating her on a small dose of Zyprexa to calm her down and help with her paranoia 2.5 mg twice a day. Discussed side effects though the patient was unable to carry on a conversation. She would not give me any more specific information about herself Thank you very much for allowing me to participate in the care of this most interesting lady. The patient may follow up with the psychiatrist upon discharge. JOB# [id number] MTDD
--- NOTE | 2019-02-13 22:32 | Internal Medicine Prog Note ---
Internal Medicine Subjective - Subjective Service Date: 02/13/19 Patient seen and examined:: with staff (SHE IS LESS AGITATED) Patient is:: awake, non-verbal, in bed, confused Per staff patient has:: no adverse event Internal Medicine Objective - Results Result Diagrams: 02/11/19 20:00 02/11/19 20:00 Recent Labs: Laboratory Last Values WBC 6.5 Th/cmm (4.8-10.8) 02/11/19 20:00 RBC 4.08 Mil/cmm (3.80-5.20) 02/11/19 20:00 Hgb 12.0 gm/dL (12-16) 02/11/19 20:00 Hct 35.0 % (41.0-60) L 02/11/19 20:00 MCV 85.8 fl (81-100) 02/11/19 20:00 MCH 29.3 pg (27.0-31.0) 02/11/19 20:00 MCHC Differential 34.2 pg (28.0-36.0) 02/11/19 20:00 RDW 13.4 % (11.5-20.0) 02/11/19 20:00 Plt Count 257 Th/cmm (150-400) 02/11/19 20:00 MPV 7.3 fl 02/11/19 20:00 Neutrophils % 55.2 % (40.0-80.0) 02/11/19 20:00 Lymphocytes % 32.3 % (20.0-50.0) 02/11/19 20:00 Monocytes % 8.5 % (2.0-10.0) 02/11/19 20:00 Eosinophils % 2.8 % (0.0-5.0) 02/11/19 20:00 Basophils % 1.2 % (0.0-2.0) 02/11/19 20:00 Sodium 140 mEq/L (136-145) 02/11/19 20:00 Potassium 4.1 mEq/L (3.5-5.1) 02/11/19 20:00 Chloride 106 mEq/L (98-107) 02/11/19 20:00 Carbon Dioxide 26.3 mEq/L (21.0-31.0) 02/11/19 20:00 Anion Gap 11.8 (7.0-16.0) 02/11/19 20:00 BUN 14 mg/dL (7-25) 02/11/19 20:00 Creatinine 0.8 mg/dL (0.6-1.2) 02/11/19 20:00 Est GFR ( Amer) TNP 02/11/19 20:00 Est GFR (Non-Af Amer) TNP 02/11/19 20:00 BUN/Creatinine Ratio 17.5 02/11/19 20:00 Glucose 82 mg/dL (70-105) 02/11/19 20:00 POC Glucose 105 MG/DL (70 - 105) 02/11/19 13:41 Calcium 8.9 mg/dL (8.6-10.3) 02/11/19 20:00 Random Vancomycin 22.1 ug/mL (5.0-40.0) 02/12/19 05:00 Hepatitis A IgM Ab Negative (Negative) 02/11/19 20:00 Hep Bs Antigen Negative (Negative) 02/11/19 20:00 Hep B Core IgM Ab Negative (Negative) 02/11/19 20:00 Hepatitis C Antibody <0.1 s/co ratio (0.0-0.9) 02/11/19 20:00 HIV 1&2 Antibody Screen NEGATIVE (NEG) 02/11/19 20:00 - Physical Exam Vitals and I&O: Vital Signs Temp 98.2 F 02/13/19 20:00 Pulse 62 02/13/19 20:00 Resp 18 02/13/19 20:00 BP 116/41 02/13/19 20:00 Pulse Ox 95 02/13/19 20:00 Intake & Output 02/13/19 02/13/19 02/14/19 06:59 18:59 06:59 Intake Total 500 Balance 500 Weight (lbs) 66.224 kg 66.224 kg Intake: Oral 500 Other: # Voids 2 2 # Bowel Movements 1 1 Weight Source Bedscale Bedscale Active Medications: Current Medications Acetaminophen (Tylenol) 650 mg PO Q4H PRN PRN Reason: Moderate Pain / Temp above 100 Stop: 04/12/19 23:45 Dextrose (D50w) 50 ml IVP PRN PRN PRN Reason: Blood Glucose less than 70 Stop: 04/12/19 23:48 Dextrose (Glutose 40%) 18.75 gm PO PRN PRN PRN Reason: Blood Glucose less than 70 Stop: 04/12/19 23:48 Divalproex Sodium (Depakote Dr) 500 mg PO BID [facility]; Protocol Stop: 04/13/19 08:59 Last Admin: 02/13/19 16:09 Dose: 500 mg Docusate Sodium (Colace) 250 mg PO DAILY YAHAIRA Stop: 04/13/19 08:59 Last Admin: 02/13/19 08:10 Dose: 250 mg Glucagon (Glucagen) 1 mg IM PRN PRN PRN Reason: Blood Glucose less than 70 Stop: 04/12/19 23:48 Vancomycin HCl 1 gm/ Sodium (Chloride) 250 mls @ 165 mls/hr IV Q24HR@1400 [facility] Stop: 04/13/19 13:59 Last Admin: 02/13/19 13:01 Dose: 165 mls/hr Lorazepam (Ativan) 0.5 mg PO Q6HR PRN; Protocol PRN Reason: Anxiety Stop: 04/13/19 13:29 Metformin HCl (Glucophage) 1,000 mg PO BID [facility] Stop: 04/13/19 08:59 Last Admin: 02/13/19 16:09 Dose: 1,000 mg Miscellaneous (Vancomycin Iv Per Pharmacy) 1 ea PRN PRN PRN Reason: PROTOCOL Stop: 04/12/19 13:53 Miscellaneous (Vte Chemical Prophylaxis Screen/ Admission) 1 [facility] PRN PRN PRN Reason: PROTOCOL Stop: 04/12/19 17:13 Multivitamins/Vitamin C (Theragran) 1 tab PO DAILY [facility] Stop: 04/13/19 08:59 Last Admin: 02/13/19 08:10 Dose: 1 tab Olanzapine (Zyprexa) 2.5 mg PO BID [facility]; Protocol Stop: 04/14/19 16:59 Last Admin: 02/13/19 16:09 Dose: 2.5 mg Trihexyphenidyl HCl (Artane) 2 mg PO BID [facility] Stop: 04/13/19 08:59 Last Admin: 02/13/19 16:09 Dose: 2 mg General: alert, demented, thin HEENT: NC/AT, PERRLA, EOMI, anicteric sclerae, throat clear Neck: Supple, No JVD, No thyromegaly, +2 carotid pulse wo bruit, No LAD, + JVD Lungs: CTAB Cardiovascular: RRR, Normal S1, Normal S2, without murmur Abdomen: soft, non-tender, non-distended Extremities: clear Neurological: no change Internal Medicine Assmt/Plan - Assessment Assessment: 1.CELLULITIS OF LEFT LOWER FOOT 2.DM. 3.PVD OF LOWER EXTREM. 4.PSYCHOSIS - Plan Plan: CONTINUE ON IV ABS.AND CURRENT DIET. Nutritional Asmnt/Malnutr-PDOC - Dietary Evaluation Malnutrition Findings (Please click <Entered> for more info): Nutritional Asmnt/Malnutrition Start: 02/12/19 11: 25 Text: Status: Complete Freq: Protocol: Document 02/12/19 11:26 HAYLIE (Rec: 02/12/19 12:04 HAYLIE [email or web address]- [email or web address]) Nutritional Asmnt/Malnutrition Patient General Information Nutritional Screening High Risk Consult Diagnosis Cellulitis Pertinent Medical Hx/Surgical Hx Diabetes mellitus, psychosis Subjective Information Consult received for Meet Score 10. Patient with left foot cellulitis, right foot amputation below the ankle. Per nursing notes, patient has been refusing some labs draws . Per nursing notes, patient eating ~80% of meals. Current Diet Order/ Nutrition Support 60 gm CCHO Patient / S.O Not Indicated Pertinent Medications D50W, Colace, Glucagon, Metformin, Abx, Theragran Pertinent Labs (02/11) Labs WNl Nutritional Hx/Data Height 1.65 m Height (Calculated Centimeters) 165.1 Current Weight (lbs) 66.224 kg Weight (Calculated Kilograms) 66.2 Weight (Calculated Grams) 18939.5 [place] Body Weight 125 % [place] Body Weight 116 Body Mass Index (BMI) 24.3 Recent Weight Change No Weight Status Approriate GI Symptoms GI Symptoms None Last BM none noted since admission Difficult in: None Food Allergies No Cultural/Ethnic/Zoroastrian Belief none indicated Usual diet at home unknown Skin Integrity/Comment: Meet 10, left foot cellulitis, right foot amputation below the ankle. Current %PO Good (75-100%) Estimated Nutritional Goals BEE in Kcals: Using Current wt Calories/Kcals/Kg 66.3kg 25-30 kcal/kg Kcals Calculated ~4477-1747 kcal/day Protein: Using Current wt Protein g/k-1.2 gm/kg Protein Calculated ~65-80 gm/day Fluid: ml ~1383-2141 ml/day (1 ml/kcal) Nutritional Problem 1. Problem Problem Increased nutrient needs related to Etiology impaired skin integrity aeb Signs/Symptoms: left foot cellulitis Intervention/Recommendation Comments 1. Continue 60 gm CCHO diet as tolerated by patient. 2. Continue MVI; consider adding Vitamin C for wound healing. 3. If oral intake drops below 75%, consider adding nutrition supplement. Expected Outcomes/Goals Expected Outcomes/Goals Adequate nutrition to meet >75 % estimated needs, improved labs, skin remains intact, weight maintenance or trend toward ideal body weight. F/U MR 02/15-02/17
[2019-02-14] MEDS: Multivitamin Tab PO SCH (09:29)
[2019-02-14] MEDS: Eucerin Cream 16 oz Jar TP SCH (17:31)
--- NOTE | 2019-02-14 21:06 | Internal Medicine Prog Note ---
Internal Medicine Subjective - Subjective Service Date: 02/14/19 Patient seen and examined:: with staff (SHE IS LESS CONFUSED,TAKING MEDICATION) Patient is:: awake, non-verbal, in bed, confused Per staff patient has:: no adverse event Internal Medicine Objective - Results Result Diagrams: 02/11/19 20:00 02/11/19 20:00 Recent Labs: Laboratory Last Values WBC 6.5 Th/cmm (4.8-10.8) 02/11/19 20:00 RBC 4.08 Mil/cmm (3.80-5.20) 02/11/19 20:00 Hgb 12.0 gm/dL (12-16) 02/11/19 20:00 Hct 35.0 % (41.0-60) L 02/11/19 20:00 MCV 85.8 fl (81-100) 02/11/19 20:00 MCH 29.3 pg (27.0-31.0) 02/11/19 20:00 MCHC Differential 34.2 pg (28.0-36.0) 02/11/19 20:00 RDW 13.4 % (11.5-20.0) 02/11/19 20:00 Plt Count 257 Th/cmm (150-400) 02/11/19 20:00 MPV 7.3 fl 02/11/19 20:00 Neutrophils % 55.2 % (40.0-80.0) 02/11/19 20:00 Lymphocytes % 32.3 % (20.0-50.0) 02/11/19 20:00 Monocytes % 8.5 % (2.0-10.0) 02/11/19 20:00 Eosinophils % 2.8 % (0.0-5.0) 02/11/19 20:00 Basophils % 1.2 % (0.0-2.0) 02/11/19 20:00 Sodium 140 mEq/L (136-145) 02/11/19 20:00 Potassium 4.1 mEq/L (3.5-5.1) 02/11/19 20:00 Chloride 106 mEq/L (98-107) 02/11/19 20:00 Carbon Dioxide 26.3 mEq/L (21.0-31.0) 02/11/19 20:00 Anion Gap 11.8 (7.0-16.0) 02/11/19 20:00 BUN 14 mg/dL (7-25) 02/11/19 20:00 Creatinine 0.8 mg/dL (0.6-1.2) 02/11/19 20:00 Est GFR ( Amer) TNP 02/11/19 20:00 Est GFR (Non-Af Amer) TNP 02/11/19 20:00 BUN/Creatinine Ratio 17.5 02/11/19 20:00 Glucose 82 mg/dL (70-105) 02/11/19 20:00 POC Glucose 105 MG/DL (70 - 105) 02/11/19 13:41 Calcium 8.9 mg/dL (8.6-10.3) 02/11/19 20:00 Random Vancomycin 22.1 ug/mL (5.0-40.0) 02/12/19 05:00 Hepatitis A IgM Ab Negative (Negative) 02/11/19 20:00 Hep Bs Antigen Negative (Negative) 02/11/19 20:00 Hep B Core IgM Ab Negative (Negative) 02/11/19 20:00 Hepatitis C Antibody <0.1 s/co ratio (0.0-0.9) 02/11/19 20:00 HIV 1&2 Antibody Screen NEGATIVE (NEG) 02/11/19 20:00 - Physical Exam Vitals and I&O: Vital Signs Temp 97.5 F 02/14/19 20:00 Pulse 65 02/14/19 20:00 Resp 18 02/14/19 20:00 BP 103/49 02/14/19 20:00 Pulse Ox 98 02/14/19 20:00 Intake & Output 02/14/19 02/14/19 02/15/19 06:59 18:59 06:59 Intake Total 300 625 Balance 300 625 Weight (lbs) 66.224 kg 66.224 kg Intake: Oral 300 625 Other: # Voids 3 3 # Bowel Movements 1 Weight Source Bedscale Bedscale Active Medications: Current Medications Acetaminophen (Tylenol) 650 mg PO Q4H PRN PRN Reason: Moderate Pain / Temp above 100 Stop: 04/12/19 23:45 Dextrose (D50w) 50 ml IVP PRN PRN PRN Reason: Blood Glucose less than 70 Stop: 04/12/19 23:48 Dextrose (Glutose 40%) 18.75 gm PO PRN PRN PRN Reason: Blood Glucose less than 70 Stop: 04/12/19 23:48 Divalproex Sodium (Depakote Dr) 500 mg PO BID [facility]; Protocol Stop: 04/13/19 08:59 Last Admin: 02/14/19 17:32 Dose: 500 mg Docusate Sodium (Colace) 250 mg PO DAILY YAHAIRA Stop: 04/13/19 08:59 Last Admin: 02/14/19 09:29 Dose: 250 mg Glucagon (Glucagen) 1 mg IM PRN PRN PRN Reason: Blood Glucose less than 70 Stop: 04/12/19 23:48 Vancomycin HCl 1 gm/ Sodium (Chloride) 250 mls @ 165 mls/hr IV Q24HR@1400 [facility] Stop: 04/13/19 13:59 Last Admin: 02/14/19 17:31 Dose: Not Given Lorazepam (Ativan) 0.5 mg PO Q6HR PRN; Protocol PRN Reason: Anxiety Stop: 04/13/19 13:29 Last Admin: 02/13/19 23:54 Dose: 0.5 mg Metformin HCl (Glucophage) 1,000 mg PO BID [facility] Stop: 04/13/19 08:59 Last Admin: 02/14/19 17:32 Dose: 1,000 mg Miscellaneous (Vancomycin Iv Per Pharmacy) 1 [facility] PRN PRN PRN Reason: PROTOCOL Stop: 04/12/19 13:53 Miscellaneous (Vte Chemical Prophylaxis Screen/ Admission) 1 [facility] PRN PRN PRN Reason: PROTOCOL Stop: 04/12/19 17:13 Multi-Ingredient Cream (Eucerin Cream) 1 appl TP BID [facility] Stop: 04/15/19 16:59 Last Admin: 02/14/19 17:31 Dose: 1 appl Multivitamins/Vitamin C (Theragran) 1 tab PO DAILY [facility] Stop: 04/13/19 08:59 Last Admin: 02/14/19 09:29 Dose: 1 tab Olanzapine (Zyprexa) 2.5 mg PO BID [facility]; Protocol Stop: 04/14/19 16:59 Last Admin: 02/14/19 17:32 Dose: 2.5 mg Trihexyphenidyl HCl (Artane) 2 mg PO BID [facility] Stop: 04/13/19 08:59 Last Admin: 02/14/19 17:33 Dose: 2 mg General: alert, demented, thin HEENT: NC/AT, PERRLA, EOMI, anicteric sclerae, throat clear Neck: Supple, No JVD, No thyromegaly, +2 carotid pulse wo bruit, No LAD, + JVD Lungs: CTAB Cardiovascular: RRR, Normal S1, Normal S2, without murmur Abdomen: soft, non-tender, non-distended Extremities: clear Neurological: no change Internal Medicine Assmt/Plan - Assessment Assessment: 1.CELLULITIS OF LEFT LOWER FOOT 2.DM. 3.PVD OF LOWER EXTREM. 4.PSYCHOSIS - Plan Plan: CONTINUE ON IV ABS.AND CURRENT DIET. Nutritional Asmnt/Malnutr-PDOC - Dietary Evaluation Malnutrition Findings (Please click <Entered> for more info): Nutritional Asmnt/Malnutrition Start: 02/12/19 11: 25 Text: Status: Complete Freq: Protocol: Document 02/12/19 11:26 HAYLIE (Rec: 02/12/19 12:04 HAYLIE VASQUEZ- [email or web address]) Nutritional Asmnt/Malnutrition Patient General Information Nutritional Screening High Risk Consult Diagnosis Cellulitis Pertinent Medical Hx/Surgical Hx Diabetes mellitus, psychosis Subjective Information Consult received for Meet Score 10. Patient with left foot cellulitis, right foot amputation below the ankle. Per nursing notes, patient has been refusing some labs draws . Per nursing notes, patient eating ~80% of meals. Current Diet Order/ Nutrition Support 60 gm CCHO Patient / S.O Not Indicated Pertinent Medications D50W, Colace, Glucagon, Metformin, Abx, Theragran Pertinent Labs (02/11) Labs WNl Nutritional Hx/Data Height 1.65 m Height (Calculated Centimeters) 165.1 Current Weight (lbs) 66.224 kg Weight (Calculated Kilograms) 66.2 Weight (Calculated Grams) 35924.5 [place] Body Weight 125 % [place] Body Weight 116 Body Mass Index (BMI) 24.3 Recent Weight Change No Weight Status Approriate GI Symptoms GI Symptoms None Last BM none noted since admission Difficult in: None Food Allergies No Cultural/Ethnic/Orthodox Belief none indicated Usual diet at home unknown Skin Integrity/Comment: Meet 10, left foot cellulitis, right foot amputation below the ankle. Current %PO Good (75-100%) Estimated Nutritional Goals BEE in Kcals: Using Current wt Calories/Kcals/Kg 66.3kg 25-30 kcal/kg Kcals Calculated ~9731-3996 kcal/day Protein: Using Current wt Protein g/k-1.2 gm/kg Protein Calculated ~65-80 gm/day Fluid: ml ~6654-0152 ml/day (1 ml/kcal) Nutritional Problem 1. Problem Problem Increased nutrient needs related to Etiology impaired skin integrity aeb Signs/Symptoms: left foot cellulitis Intervention/Recommendation Comments 1. Continue 60 gm CCHO diet as tolerated by patient. 2. Continue MVI; consider adding Vitamin C for wound healing. 3. If oral intake drops below 75%, consider adding nutrition supplement. Expected Outcomes/Goals Expected Outcomes/Goals Adequate nutrition to meet >75 % estimated needs, improved labs, skin remains intact, weight maintenance or trend toward ideal body weight. F/U MR 02/15-02/17
--- NOTE | 2019-02-15 01:32 | Progress Notes ---
DATE: SUBJECTIVE: Chart reviewed and patient interviewed. Also discussed patient's condition with the staff and reviewed records and labs. The patient remains severely suspicious and has been paranoid. The patient also is restless and she is still "I want to go home." The patient does know where is home. The patient also is still in angry mood. Otherwise, patient is compliant with taking Zyprexa, Artane, and Depakote. ASSESSMENT: The patient is still suspicious and paranoid. TREATMENT PLAN: Continue monitoring her behavior closely. Also, we will get Depakote blood level today and we will continue to follow up closely. [facility]# [id number]
[2019-02-15] MEDS: Multivitamin Tab PO SCH (09:38)
[2019-02-15] MEDS: Eucerin Cream 16 oz Jar TP SCH ×2 (09:39→16:38)
--- NOTE | 2019-02-15 22:23 | Internal Medicine Prog Note ---
Internal Medicine Subjective - Subjective Service Date: 02/15/19 Patient seen and examined:: with staff (SHE IS DOING WELL,STILL CONFUSED) Patient is:: awake, non-verbal, in bed, confused Per staff patient has:: no adverse event Internal Medicine Objective - Results Result Diagrams: 02/11/19 20:00 02/11/19 20:00 Recent Labs: Laboratory Last Values WBC 6.5 Th/cmm (4.8-10.8) 02/11/19 20:00 RBC 4.08 Mil/cmm (3.80-5.20) 02/11/19 20:00 Hgb 12.0 gm/dL (12-16) 02/11/19 20:00 Hct 35.0 % (41.0-60) L 02/11/19 20:00 MCV 85.8 fl (81-100) 02/11/19 20:00 MCH 29.3 pg (27.0-31.0) 02/11/19 20:00 MCHC Differential 34.2 pg (28.0-36.0) 02/11/19 20:00 RDW 13.4 % (11.5-20.0) 02/11/19 20:00 Plt Count 257 Th/cmm (150-400) 02/11/19 20:00 MPV 7.3 fl 02/11/19 20:00 Neutrophils % 55.2 % (40.0-80.0) 02/11/19 20:00 Lymphocytes % 32.3 % (20.0-50.0) 02/11/19 20:00 Monocytes % 8.5 % (2.0-10.0) 02/11/19 20:00 Eosinophils % 2.8 % (0.0-5.0) 02/11/19 20:00 Basophils % 1.2 % (0.0-2.0) 02/11/19 20:00 Sodium 140 mEq/L (136-145) 02/11/19 20:00 Potassium 4.1 mEq/L (3.5-5.1) 02/11/19 20:00 Chloride 106 mEq/L (98-107) 02/11/19 20:00 Carbon Dioxide 26.3 mEq/L (21.0-31.0) 02/11/19 20:00 Anion Gap 11.8 (7.0-16.0) 02/11/19 20:00 BUN 14 mg/dL (7-25) 02/11/19 20:00 Creatinine 0.8 mg/dL (0.6-1.2) 02/11/19 20:00 Est GFR ( Amer) TNP 02/11/19 20:00 Est GFR (Non-Af Amer) TNP 02/11/19 20:00 BUN/Creatinine Ratio 17.5 02/11/19 20:00 Glucose 82 mg/dL (70-105) 02/11/19 20:00 POC Glucose 105 MG/DL (70 - 105) 02/11/19 13:41 Calcium 8.9 mg/dL (8.6-10.3) 02/11/19 20:00 Random Vancomycin 22.1 ug/mL (5.0-40.0) 02/12/19 05:00 Hepatitis A IgM Ab Negative (Negative) 02/11/19 20:00 Hep Bs Antigen Negative (Negative) 02/11/19 20:00 Hep B Core IgM Ab Negative (Negative) 02/11/19 20:00 Hepatitis C Antibody <0.1 s/co ratio (0.0-0.9) 02/11/19 20:00 HIV 1&2 Antibody Screen NEGATIVE (NEG) 02/11/19 20:00 - Physical Exam Vitals and I&O: Vital Signs Temp 98.4 F 02/15/19 15:00 Pulse 58 02/15/19 15:00 Resp 18 02/15/19 20:00 BP 98/57 02/15/19 15:00 Pulse Ox 96 02/15/19 15:00 Intake & Output 02/15/19 02/15/19 02/16/19 06:59 18:59 06:59 Intake Total 480 625 Balance 480 625 Weight (lbs) 66.224 kg 66.224 kg Intake: Oral 480 625 Other: # Voids 1 3 # Bowel Movements 1 Stool Characteristics Soft Soft Formed Formed Brown Brown Weight Source Bedscale Bedscale Active Medications: Current Medications Acetaminophen (Tylenol) 650 mg PO Q4H PRN PRN Reason: Moderate Pain / Temp above 100 Stop: 04/12/19 23:45 Dextrose (D50w) 50 ml IVP PRN PRN PRN Reason: Blood Glucose less than 70 Stop: 04/12/19 23:48 Dextrose (Glutose 40%) 18.75 gm PO PRN PRN PRN Reason: Blood Glucose less than 70 Stop: 04/12/19 23:48 Divalproex Sodium (Depakote Dr) 500 mg PO BID [facility]; Protocol Stop: 04/13/19 08:59 Last Admin: 02/15/19 16:39 Dose: 500 mg Docusate Sodium (Colace) 250 mg PO DAILY YAHAIRA Stop: 04/13/19 08:59 Last Admin: 02/15/19 09:39 Dose: 250 mg Glucagon (Glucagen) 1 mg IM PRN PRN PRN Reason: Blood Glucose less than 70 Stop: 04/12/19 23:48 Vancomycin HCl 1 gm/ Sodium (Chloride) 250 mls @ 165 mls/hr IV Q24HR@1400 YAHAIRA Stop: 04/13/19 13:59 Last Admin: 02/15/19 16:33 Dose: Not Given Lorazepam (Ativan) 0.5 mg PO Q6HR PRN; Protocol PRN Reason: Anxiety Stop: 04/13/19 13:29 Last Admin: 02/13/19 23:54 Dose: 0.5 mg Metformin HCl (Glucophage) 1,000 mg PO BID [facility] Stop: 04/13/19 08:59 Last Admin: 02/15/19 16:39 Dose: 1,000 mg Miscellaneous (Vancomycin Iv Per Pharmacy) 1 [facility] PRN PRN PRN Reason: PROTOCOL Stop: 04/12/19 13:53 Miscellaneous (Vte Chemical Prophylaxis Screen/ Admission) 1 [facility] PRN PRN PRN Reason: PROTOCOL Stop: 04/12/19 17:13 Multi-Ingredient Cream (Eucerin Cream) 1 appl TP BID [facility] Stop: 04/15/19 16:59 Last Admin: 02/15/19 16:38 Dose: 1 appl Multivitamins/Vitamin C (Theragran) 1 tab PO DAILY [facility] Stop: 04/13/19 08:59 Last Admin: 02/15/19 09:38 Dose: 1 tab Olanzapine (Zyprexa) 2.5 mg PO BID [facility]; Protocol Stop: 04/14/19 16:59 Last Admin: 02/15/19 16:38 Dose: 2.5 mg Trihexyphenidyl HCl (Artane) 2 mg PO BID [facility] Stop: 04/13/19 08:59 Last Admin: 02/15/19 16:39 Dose: 2 mg General: alert, demented, thin HEENT: NC/AT, PERRLA, EOMI, anicteric sclerae, throat clear Neck: Supple, No JVD, No thyromegaly, +2 carotid pulse wo bruit, No LAD, + JVD Lungs: CTAB Cardiovascular: RRR, Normal S1, Normal S2, without murmur Abdomen: soft, non-tender, non-distended Extremities: clear Neurological: no change Internal Medicine Assmt/Plan - Assessment Assessment: 1.CELLULITIS OF LEFT LOWER FOOT 2.DM. 3.PVD OF LOWER EXTREM. 4.PSYCHOSIS - Plan Plan: CONTINUE ON IV ABS.AND CURRENT DIET.TRANSFER TO [facility] Nutritional Asmnt/Malnutr-PDOC - Dietary Evaluation Malnutrition Findings (Please click <Entered> for more info): Nutritional Asmnt/Malnutrition Start: 02/12/19 11: 25 Text: Status: Complete Freq: Protocol: Document 02/12/19 11:26 HAYLIE (Rec: 02/12/19 12:04 HAYLIE AVSQUEZ- [email or web address]) Nutritional Asmnt/Malnutrition Patient General Information Nutritional Screening High Risk Consult Diagnosis Cellulitis Pertinent Medical Hx/Surgical Hx Diabetes mellitus, psychosis Subjective Information Consult received for Meet Score 10. Patient with left foot cellulitis, right foot amputation below the ankle. Per nursing notes, patient has been refusing some labs draws . Per nursing notes, patient eating ~80% of meals. Current Diet Order/ Nutrition Support 60 gm [facility] Patient / S.O Not Indicated Pertinent Medications D50W, Colace, Glucagon, Metformin, Abx, Theragran Pertinent Labs (02/11) Labs WNl Nutritional Hx/Data Height 1.65 m Height (Calculated Centimeters) 165.1 Current Weight (lbs) 66.224 kg Weight (Calculated Kilograms) 66.2 Weight (Calculated Grams) 62640.5 [place] Body Weight 125 % [place] Body Weight 116 Body Mass Index (BMI) 24.3 Recent Weight Change No Weight Status Approriate GI Symptoms GI Symptoms None Last BM none noted since admission Difficult in: None Food Allergies No Cultural/Ethnic/Yarsani Belief none indicated Usual diet at home unknown Skin Integrity/Comment: Meet 10, left foot cellulitis, right foot amputation below the ankle. Current %PO Good (75-100%) Estimated Nutritional Goals BEE in Kcals: Using Current wt Calories/Kcals/Kg 66.3kg 25-30 kcal/kg Kcals Calculated ~8718-8111 kcal/day Protein: Using Current wt Protein g/k-1.2 gm/kg Protein Calculated ~65-80 gm/day Fluid: ml ~8084-0713 ml/day (1 ml/kcal) Nutritional Problem 1. Problem Problem Increased nutrient needs related to Etiology impaired skin integrity aeb Signs/Symptoms: left foot cellulitis Intervention/Recommendation Comments 1. Continue 60 gm CCHO diet as tolerated by patient. 2. Continue MVI; consider adding Vitamin C for wound healing. 3. If oral intake drops below 75%, consider adding nutrition supplement. Expected Outcomes/Goals Expected Outcomes/Goals Adequate nutrition to meet >75 % estimated needs, improved labs, skin remains intact, weight maintenance or trend toward ideal body weight. F/U MR 02/15-02/17
--- NOTE | 2019-02-15 23:31 | Progress Notes ---
DATE: 02/15/2019 SUBJECTIVE: Chart was reviewed and the patient interviewed. Also discussed the patient's condition with the staff and reviewed records and labs. The patient is still anxious and paranoid. The patient also still has thoughts that people are going to harm him. Also, unpredictable behavior and the patient is impulsive. The patient also has difficulty carrying on coherent conversation. Otherwise, the patient continued to comply with taking Zyprexa 2.5 mg twice a day and Depakote 500 mg twice a day. Depakote blood level is pending. ASSESSMENT: The patient is still psychotic and paranoid. TREATMENT PLAN: Continue to monitor her behavior and her condition closely. Also, continue adjusting psychotropic medications and work on behavioral modification. [facility]# [id number]
[2019-02-16] MEDS: Multivitamin Tab PO SCH (08:56)
[2019-02-16] MEDS: Eucerin Cream 16 oz Jar TP SCH (09:06)
== END 2019-02-16 16:05 | DRG 602 ==
LOC: ER 19:21 → MSI 02-11 10:30
PROVIDERS: ADMIT Internal Medicine; ATTEND Internal Medicine
DX: L03.116 Cellulitis of left lower limb (principal); R53.2 Functional quadriplegia; F29 Unspecified psychosis not due to a substance or known physiological condition; M19.90 Unspecified osteoarthritis, unspecified site; K21.9 Gastro-esophageal reflux disease without esophagitis; E11.51 Type 2 diabetes mellitus with diabetic peripheral angiopathy without gangrene; E11.36 Type 2 diabetes mellitus with diabetic cataract; Z89.511 Acquired absence of right leg below knee; Z88.8 Allergy status to other drugs, medicaments and biological substances
CPT/HCPCS: 36415-UA; 80048-TC; 80202-TC; 82948-90; 85025-TC; 86703-TC; 86705-90; 86709-90; 86803-90; 87340-90; 87341-90; J1200; J1630; J2060; J3370; J7040

== ENCOUNTER 2019-02-16 16:06 | Inpatient (IN) | payer MEDICAID, MEDICARE ==
--- NOTE | 2019-02-16 17:14 | Progress Notes ---
DATE: 02/16/2019 SUBJECTIVE: Chart was reviewed and the patient interviewed. Also discussed the patient's condition with the staff and reviewed records and labs. The patient is still paranoid and delusional. The patient also is anxious and restless. Minimum interaction with others. Actively responding to stimuli. Otherwise, the patient is compliant with taking her medications with no side effects. ASSESSMENT: The patient is still psychotic and maybe he gets help from [facility]. TREATMENT PLAN: Continue monitoring her medications and condition and continue adjusting psychotropic medications. [facility]# [id number]
[2019-02-16 17:49] VITALS: BP 109/47
[2019-02-16] MEDS ORDERED: GLUCAGON HCl 1 MG KIT IM PRN (23:05)
[2019-02-17] MEDS: Eucerin Cream 16 oz Jar TP SCH ×2 (08:47→16:35)
[2019-02-17] MEDS: Multivitamin Tab PO SCH (08:47)
--- NOTE | 2019-02-17 21:21 | History & Physical ---
ADMIT DATE: 02/16/2019 CHIEF COMPLAINT: Psychosis. HISTORY OF PRESENT ILLNESS: The patient is a 73-year-old female with a long history of diabetes mellitus, peripheral vascular disease of lower extremities, psychosis, admitted to [facility] with cellulitis of the left lower extremity. The patient is a poor historian. PAST MEDICAL HISTORY: Significant for diabetes mellitus, peripheral vascular disease of lower extremities, and psychosis. PAST SURGICAL HISTORY: Right above-ankle amputation. ALLERGIES: Insulin. SOCIAL HISTORY: No smoking, no alcohol, no drug. FAMILY HISTORY: Noncontributory. MEDICATIONS: Follow admission reconciliation. REVIEW OF SYSTEMS: RENAL SYSTEM: No history of chronic renal disorder. CARDIOVASCULAR SYSTEM: No history of coronary artery disease. ENDOCRINE SYSTEM: She has history of diabetes mellitus. GASTROINTESTINAL SYSTEM: No upper or lower gastrointestinal bleed. NEUROLOGICAL SYSTEM: No seizure disorder. MUSCULOSKELETAL SYSTEM: No muscular dystrophy. HEMATOLOGICAL SYSTEM: No bleeding tendency. RESPIRATORY SYSTEM: No asthma. GENITOURINARY: No dysuria or hematuria. PHYSICAL EXAMINATION: GENERAL: She is awake, not coherent. VITAL SIGNS: Temperature 97.6, heart rate 86, blood pressure 134/70. HEENT: Normocephalic. Pupils reactive to light and accommodation. Sclerae clear. NECK: Supple. Negative for lymphadenopathy, JVD or bruit. CHEST: Entry of air bilaterally normal. No rhonchi or wheezing. HEART: S1, S2 normal. No gallop rhythm. ABDOMEN: Soft, bowel sounds positive. EXTREMITIES: No edema. NEUROLOGIC: She is awake, alert, not coherent. No focal muscle deficits. ASSESSMENT: 1. Cellulitis of the left lower extremity. 2. Diabetes mellitus. 3. Peripheral vascular disease of lower extremities. 4. Psychosis. PLAN: The patient was admitted to the hospital under Dr. Garcia's service. Medical problem addressed during the hospitalization is psychosis. Medical problem addressed at discharge is diabetes mellitus. The patient is medically stable for activity. Thank you Dr. Garcia for allowing us to see your patient. The patient is a full code. JOB# [id number]
[2019-02-18] MEDS: Multivitamin Tab PO SCH (10:49)
[2019-02-18] MEDS: Eucerin Cream 16 oz Jar TP SCH ×2 (10:51→17:01)
--- NOTE | 2019-02-18 14:52 | Internal Medicine Prog Note ---
Internal Medicine Subjective - Subjective Service Date: 02/18/19 Patient seen and examined:: with staff (SHE FEELS WELL) Patient is:: awake, verbal, in bed, talking, confused Per staff patient has:: no adverse event Internal Medicine Objective - Physical Exam Vitals and I&O: Vital Signs Temp 97 F 02/18/19 06:33 Pulse 56 02/18/19 06:33 Resp 18 02/18/19 06:33 BP 111/65 02/18/19 06:33 Pulse Ox 97 02/18/19 06:33 Intake & Output 02/17/19 02/18/19 02/18/19 18:59 06:59 18:59 Intake Total 1500 120 Balance 1500 120 Intake: Oral 1500 120 Other: # Voids 3 3 # Bowel Movements 0 Active Medications: Current Medications Acetaminophen (Tylenol) 650 mg PO Q4H PRN PRN Reason: Moderate Pain / Temp above 100 Stop: 04/17/19 23:04 Dextrose (Glutose 40%) 18.75 gm PO PRN PRN PRN Reason: Blood Glucose less than 70 Stop: 04/17/19 23:04 Divalproex Sodium (Depakote Dr) 500 mg PO BID [facility]; Protocol Stop: 04/18/19 08:59 Last Admin: 02/18/19 10:51 Dose: Not Given Docusate Sodium (Colace) 250 mg PO DAILY [facility] Stop: 04/18/19 08:59 Last Admin: 02/18/19 10:49 Dose: 250 mg Glucagon (Glucagen) 1 mg IM PRN PRN PRN Reason: Blood Glucose less than 70 Stop: 04/17/19 23:04 Lorazepam (Ativan) 0.5 mg PO Q6HR PRN; Protocol PRN Reason: Anxiety Stop: 04/17/19 23:23 Metformin HCl (Glucophage) 1,000 mg PO BID [facility] Stop: 04/18/19 08:59 Last Admin: 02/18/19 10:51 Dose: Not Given Multi-Ingredient Cream (Eucerin Cream) 1 appl TP BID [facility] Stop: 04/18/19 08:59 Last Admin: 02/18/19 10:51 Dose: Not Given Multivitamins/Vitamin C (Theragran) 1 tab PO DAILY [facility] Stop: 04/18/19 08:59 Last Admin: 02/18/19 10:49 Dose: 1 tab Olanzapine (Zyprexa) 2.5 mg PO BID [facility]; Protocol Stop: 04/18/19 08:59 Last Admin: 02/18/19 10:51 Dose: Not Given Trihexyphenidyl HCl (Artane) 2 mg PO BID [facility] Stop: 04/18/19 08:59 Last Admin: 02/18/19 10:51 Dose: Not Given Zolpidem Tartrate (Ambien) 5 mg PO HS PRN PRN Reason: Insomnia Stop: 04/17/19 19:59 General: alert HEENT: NC/AT, PERRLA, EOMI, anicteric sclerae, throat clear Neck: Supple, No JVD, No thyromegaly, +2 carotid pulse wo bruit, No LAD, + JVD Lungs: CTAB Cardiovascular: RRR, Normal S1, Normal S2, without murmur Abdomen: non-tender, non-distended Extremities: clear Neurological: no change Internal Medicine Assmt/Plan - Assessment Assessment: 1.DM. 2.PVD OF LOWER EXTR. 3.PSYCHOSIS - Plan Plan: CONTINUE ON CURRENT MEDICATION AND DIET Nutritional Asmnt/Malnutr-PDOC - Dietary Evaluation Malnutrition Findings (Please click <Entered> for more info): Nutritional Asmnt/Malnutrition Start: 02/18/19 14: 04 Text: Status: Complete Freq: Protocol: Document 02/18/19 14:04 KAMINI (Rec: 02/18/19 14:08 KAMINI [id number]) Nutritional Asmnt/Malnutrition Patient General Information Nutritional Screening Moderate Risk Diagnosis Psychosis Pertinent Medical Hx/Surgical Hx DM, Peripheral vascular disease of lower extremities, Psychosis Subjective Information Pt was downgraded from moderate risk to low risk d/t well tolerance to meal/diet order and meeting nutritional needs. Pt is a 73-year-old female admitted on 02/16 d/t psychosis . Per Meal/Nutrition Activity Record, Pt is eating 90% meals . HT: 55 WT: 146 LB (66.36 kg) BMI: 24.35 (Normal) GI: WNL, Flat, Soft, Non- Tender BM: Not noted I/O: 1620/Not Noted Skin: WNL, Intact Meet: 18 Diet Order: CCHO 60gm Estimated Energy Needs: ( Geriatric, CBW) 0511-5407 kcals (25-30 kcals/ kg) 66-79 g Pro (1.0-1.2 g/kg) 9832-8995 ml (25-30 ml/kg) Pt is eating 90% of meals Per Meal/Nutrition Activity Record . Dietary is currently providing an estimated 1287 kcals and 123 gm. Per pt PO intake, this is providing an estimated 1968 kcals and 110 gm Pro, to meet 100% kcal and 100% Pro needs adequate. Current Diet Order/ [facility] Pertinent Medications Glutose 40% (PRN), Colace, Glucagen (PRN), Glucophage, Theragran Pertinent Labs No Pertinent Lab Noted Nutritional Hx/Data Height 1.65 m Height (Calculated Centimeters) 165.1 Current Weight (lbs) 66.224 kg Weight (Calculated Kilograms) 66.2 Weight (Calculated Grams) 97057.5 [place] Body Weight 57 kg % [place] Body Weight 116 Body Mass Index (BMI) 24.3 Weight Status Approriate GI Symptoms GI Symptoms None Last BM Not noted Skin Integrity/Comment: WNL, Intact Meet: 18 Current %PO Good (75-100%) Estimated Nutritional Goals BEE in Kcals: Using Current wt Calories/Kcals/Kg 25-30 Kcals Calculated 9799-5182 Protein: Using Current wt Protein g/k.0-1.2 Protein Calculated 66-79 Fluid: ml 0188-5838 ml (25-30 ml/kg) Nutritional Problem No current Nutrition Prob Problem N/A Etiology N/A Signs/Symptoms: N/A Malnutrition Related to Morbid Obesity Malnutrition related to morbid obesity No Intervention/Recommendation Comments 1.Continue with [facility] 60gm diet as ordered. Expected Outcomes/Goals Expected Outcomes/Goals 1.PO intake to continue to meet 75% of nutritional needs. 2.Monitor PO intake, wt, nutrition related labs, and skin integrity. 3.F/U as low risk in 7 days,
--- NOTE | 2019-02-18 22:21 | Progress Notes ---
DATE: SUBJECTIVE: Chart was reviewed and the patient interviewed. Also discussed the patient's condition with the staff and reviewed records and labs. The patient is still delusional and paranoid. The patient also is still severely angry and irritable and agitated. She also still has difficulty following staff directions. She still needs lots of redirections. Otherwise, the patient is compliant with taking her medications, with no side effects of medications. ASSESSMENT: The patient is still psychotic and paranoid. TREATMENT PLAN: Continue to monitor her behavior and her condition closely. Also, continue adjusting psychotropic medications and working on behavioral modification. JOB# [id number]
--- NOTE | 2019-02-18 22:26 | Psychiatric Evaluation ---
DATE OF SERVICE: 02/16/2019 INITIAL EVALUATION ON MENTAL STATUS EXAM SEX: Female. PHYSICIAN: Dr. Garcia. CHIEF COMPLAINT: Agitation and aggressive behavior. HISTORY OF PRESENT ILLNESS: The patient is a 73-year-old female who was transferred from Med/Surg unit through the Geropsych Unit. Originally, the patient was in [facility] and the patient had aggressive behavior towards staff and other patients in the facility and she was transferred to the hospital and upon admission, the patient had some medical issues and she was admitted to the medical floor. The patient continued to be agitated and combative and when medically stable, [facility] The patient is paranoid and suspicious and had episodes of trying to hit people, especially helping her with her ADLs. She also still seems to be suspicious and paranoid. PAST PSYCHIATRIC HISTORY: History of psychosis and dementia. PAST MEDICAL HISTORY: The patient has right below knee amputation and the patient also has diabetes mellitus. SOCIAL HISTORY: The patient lives in [facility]. No known alcohol or drug use. ALLERGIES: No known allergies. MENTAL STATUS EXAMINATION: The patient appears slightly older than her stated age. Anxious. Irritable mood. Thought processes are circumstantial with occasional flight of ideas. The patient denies any auditory or visual hallucinations, but seems to be delusional and paranoid and actively hallucinating. The patient denies suicidal or homicidal ideations. The patient is alert, but unable to assess orientation or memory at this time because the patient is uncooperative with answering questions. Poor insight and poor judgment. ASSESSMENT: PRIMARY DIAGNOSIS: Unspecified psychosis. SECONDARY DIAGNOSIS: Dementia, moderate to severe, with psychotic features and behavioral disturbances. TREATMENT PLAN: We will monitor the patient's behavior and condition closely. We will start individual as well as milieu psychotherapy. Also, we will continue adjusting psychotropic medications and the patient currently is taking Zyprexa 2.5 mg twice a day and Depakote 500 mg twice a day. ESTIMATED LENGTH OF STAY: 5-7 days. THE PATIENT'S STRENGTHS AND WEAKNESSES: The patient strength is not clear at this time except that she is compliant with taking her medications and able to follow directions. The patient's weakness is her irritability and agitation. AFTER DISCHARGE PLAN: The patient will be able to return to [facility] and outpatient treatment and followup will continue as an outpatient. CRITERIA FOR DISCHARGE: The patient will not be agitated and will stabilize psychotropic medications and will establish outpatient treatment plans. [facility]# [id number]
[2019-02-19] MEDS: Eucerin Cream 16 oz Jar TP SCH ×2 (09:20→17:16)
[2019-02-19] MEDS: Multivitamin Tab PO SCH (09:20)
--- NOTE | 2019-02-19 20:44 | General Progress Note ---
Subjective - Review of Systems Service Date: 02/19/19 Subjective: resting comfortably no distress Objective - Physical Exam Vitals and I&O: Vital Signs Temp 98.7 F 02/19/19 14:00 Pulse 52 02/19/19 14:00 Resp 17 02/19/19 14:00 BP 120/68 02/19/19 14:00 Pulse Ox 100 02/19/19 14:00 Intake & Output 02/19/19 02/19/19 02/20/19 06:59 18:59 06:59 Intake Total 120 1250 120 Balance 120 1250 120 Intake: Oral 120 1250 120 Other: # Voids 3 # Bowel Movements 0 Active Medications: Current Medications Acetaminophen (Tylenol) 650 mg PO Q4H PRN PRN Reason: Moderate Pain / Temp above 100 Stop: 04/17/19 23:04 Dextrose (Glutose 40%) 18.75 gm PO PRN PRN PRN Reason: Blood Glucose less than 70 Stop: 04/17/19 23:04 Divalproex Sodium (Depakote Dr) 500 mg PO BID [facility]; Protocol Stop: 04/18/19 08:59 Last Admin: 02/19/19 17:16 Dose: Not Given Docusate Sodium (Colace) 250 mg PO DAILY [facility] Stop: 04/18/19 08:59 Last Admin: 02/19/19 09:20 Dose: 250 mg Glucagon (Glucagen) 1 mg IM PRN PRN PRN Reason: Blood Glucose less than 70 Stop: 04/17/19 23:04 Lorazepam (Ativan) 0.5 mg PO Q6HR PRN; Protocol PRN Reason: Anxiety Stop: 04/17/19 23:23 Last Admin: 02/18/19 16:59 Dose: 0.5 mg Metformin HCl (Glucophage) 1,000 mg PO BID [facility] Stop: 04/18/19 08:59 Last Admin: 02/19/19 17:16 Dose: Not Given Multi-Ingredient Cream (Eucerin Cream) 1 appl TP BID [facility] Stop: 04/18/19 08:59 Last Admin: 02/19/19 17:16 Dose: Not Given Multivitamins/Vitamin C (Theragran) 1 tab PO DAILY [facility] Stop: 04/18/19 08:59 Last Admin: 02/19/19 09:20 Dose: 1 tab Olanzapine (Zyprexa) 2.5 mg PO BID [facility]; Protocol Stop: 04/18/19 08:59 Last Admin: 02/19/19 17:17 Dose: Not Given Trihexyphenidyl HCl (Artane) 2 mg PO BID [facility] Stop: 04/18/19 08:59 Last Admin: 02/19/19 17:17 Dose: Not Given Zolpidem Tartrate (Ambien) 5 mg PO HS PRN PRN Reason: Insomnia Stop: 04/17/19 19:59 General: No acute distress HEENT: Atraumatic, PERRLA Neck: Supple, JVD Cardiovascular: Regular rate, Normal S1, Normal S2 Lungs: Clear to auscultation Abdomen: Bowel sounds, Soft Assessment/Plan - Assessment Assessment: 1.DM. 2.PVD OF LOWER EXTR. 3.PSYCHOSIS - Plan Plan: continue current treatment Nutritional Asmnt/Malnutr-PDOC - Dietary Evaluation Malnutrition Findings (Please click <Entered> for more info): Nutritional Asmnt/Malnutrition Start: 02/18/19 14: 04 Text: Status: Complete Freq: Protocol: Document 02/18/19 14:04 KAMINI (Rec: 02/18/19 14:08 [email or web address] [email or web address]) Nutritional Asmnt/Malnutrition Patient General Information Nutritional Screening Moderate Risk Diagnosis Psychosis Pertinent Medical Hx/Surgical Hx DM, Peripheral vascular disease of lower extremities, Psychosis Subjective Information Pt was downgraded from moderate risk to low risk d/t well tolerance to meal/diet order and meeting nutritional needs. Pt is a 73-year-old female admitted on 02/16 d/t psychosis . Per Meal/Nutrition Activity Record, Pt is eating 90% meals . HT: 55 WT: 146 LB (66.36 kg) BMI: 24.35 (Normal) GI: WNL, Flat, Soft, Non- Tender BM: Not noted I/O: 1620/Not Noted Skin: WNL, Intact Meet: 18 Diet Order: CCHO 60gm Estimated Energy Needs: ( Geriatric, CBW) 7822-5610 kcals (25-30 kcals/ kg) 66-79 g Pro (1.0-1.2 g/kg) 1376-9909 ml (25-30 ml/kg) Pt is eating 90% of meals Per Meal/Nutrition Activity Record . Dietary is currently providing an estimated 1287 kcals and 123 gm. Per pt PO intake, this is providing an estimated 1968 kcals and 110 gm Pro, to meet 100% kcal and 100% Pro needs adequate. Current Diet Order/ Nutrition Support [facility] 60gm Pertinent Medications Glutose 40% (PRN), Colace, Glucagen (PRN), Glucophage, Theragran Pertinent Labs No Pertinent Lab Noted Nutritional Hx/Data Height 1.65 m Height (Calculated Centimeters) 165.1 Current Weight (lbs) 66.224 kg Weight (Calculated Kilograms) 66.2 Weight (Calculated Grams) 09133.5 [place] Body Weight 57 kg % [place] Body Weight 116 Body Mass Index (BMI) 24.3 Weight Status Approriate GI Symptoms GI Symptoms None Last BM Not noted Skin Integrity/Comment: WNL, Intact Meet: 18 Current %PO Good (75-100%) Estimated Nutritional Goals BEE in Kcals: Using Current wt Calories/Kcals/Kg 25-30 Kcals Calculated 2463-4769 Protein: Using Current wt Protein g/k.0-1.2 Protein Calculated 66-79 Fluid: ml 5474-1280 ml (25-30 ml/kg) Nutritional Problem No current Nutrition Prob Problem N/A Etiology N/A Signs/Symptoms: N/A Malnutrition Related to Morbid Obesity Malnutrition related to morbid obesity No Intervention/Recommendation Comments 1.Continue with [facility] 60gm diet as ordered. Expected Outcomes/Goals Expected Outcomes/Goals 1.PO intake to continue to meet 75% of nutritional needs. 2.Monitor PO intake, wt, nutrition related labs, and skin integrity. 3.F/U as low risk in 7 days,
--- NOTE | 2019-02-19 23:03 | Progress Notes ---
DATE: SUBJECTIVE: Chart reviewed and the patient interviewed. Also discussed the patient's condition with the staff and reviewed records and labs. The patient is still anxious and the patient is still suspicious and paranoid. The patient also is restless and she still needs redirections. She also wants to be left alone. The patient also is having mood swings and at times resisting care. She also has disorganized thoughts and unable to carry on coherent conversation. ASSESSMENT: The patient is still psychotic and needs close monitoring. TREATMENT PLAN: Continue to monitor her behavior and her condition closely. Also, continue adjusting psychotropic medications and work on behavioral modification. [facility]# [id number]
[2019-02-20] MEDS: Eucerin Cream 16 oz Jar TP SCH ×2 (09:00→17:51)
[2019-02-20] MEDS: Multivitamin Tab PO SCH (09:00)
--- NOTE | 2019-02-20 18:31 | General Progress Note ---
Subjective - Review of Systems Service Date: 02/20/19 Subjective: resting comfortably no distress Objective - Physical Exam Vitals and I&O: Vital Signs Temp 97.8 F 02/20/19 14:00 Pulse 89 02/20/19 14:00 Resp 20 02/20/19 14:00 BP 115/64 02/20/19 14:00 Pulse Ox 96 02/20/19 14:00 Intake & Output 02/19/19 02/20/19 02/20/19 18:59 06:59 18:59 Intake Total 1250 240 Balance 1250 240 Intake: Oral 1250 240 Other: # Voids 2 # Bowel Movements 0 Active Medications: Current Medications Acetaminophen (Tylenol) 650 mg PO Q4H PRN PRN Reason: Moderate Pain / Temp above 100 Stop: 04/17/19 23:04 Dextrose (Glutose 40%) 18.75 gm PO PRN PRN PRN Reason: Blood Glucose less than 70 Stop: 04/17/19 23:04 Divalproex Sodium (Depakote Dr) 500 mg PO BID [facility]; Protocol Stop: 04/18/19 08:59 Last Admin: 02/20/19 17:51 Dose: Not Given Docusate Sodium (Colace) 250 mg PO DAILY [facility] Stop: 04/18/19 08:59 Last Admin: 02/20/19 09:00 Dose: Not Given Glucagon (Glucagen) 1 mg IM PRN PRN PRN Reason: Blood Glucose less than 70 Stop: 04/17/19 23:04 Lorazepam (Ativan) 0.5 mg PO Q6HR PRN; Protocol PRN Reason: Anxiety Stop: 04/17/19 23:23 Last Admin: 02/18/19 16:59 Dose: 0.5 mg Metformin HCl (Glucophage) 1,000 mg PO BID [facility] Stop: 04/18/19 08:59 Last Admin: 02/20/19 17:51 Dose: Not Given Multi-Ingredient Cream (Eucerin Cream) 1 appl TP BID [facility] Stop: 04/18/19 08:59 Last Admin: 02/20/19 17:51 Dose: Not Given Multivitamins/Vitamin C (Theragran) 1 tab PO DAILY [facility] Stop: 04/18/19 08:59 Last Admin: 02/20/19 09:00 Dose: Not Given Olanzapine (Zyprexa) 2.5 mg PO BID [facility]; Protocol Stop: 04/18/19 08:59 Last Admin: 02/20/19 17:51 Dose: Not Given Trihexyphenidyl HCl (Artane) 2 mg PO BID [facility] Stop: 04/18/19 08:59 Last Admin: 02/20/19 17:51 Dose: Not Given Zolpidem Tartrate (Ambien) 5 mg PO HS PRN PRN Reason: Insomnia Stop: 04/17/19 19:59 Last Admin: 02/19/19 21:01 Dose: 5 mg General: No acute distress HEENT: Atraumatic, PERRLA Neck: Supple, JVD Cardiovascular: Regular rate, Normal S1, Normal S2 Lungs: Clear to auscultation Abdomen: Bowel sounds, Soft Assessment/Plan - Assessment Assessment: 1.DM. 2.PVD OF LOWER EXTR. 3.PSYCHOSIS - Plan Plan: continue current treatment Nutritional Asmnt/Malnutr-PDOC - Dietary Evaluation Malnutrition Findings (Please click <Entered> for more info): Nutritional Asmnt/Malnutrition Start: 02/18/19 14: 04 Text: Status: Complete Freq: Protocol: Document 02/18/19 14:04 KAMINI (Rec: 02/18/19 14:08 [email or web address]) Nutritional Asmnt/Malnutrition Patient General Information Nutritional Screening Moderate Risk Diagnosis Psychosis Pertinent Medical Hx/Surgical Hx DM, Peripheral vascular disease of lower extremities, Psychosis Subjective Information Pt was downgraded from moderate risk to low risk d/t well tolerance to meal/diet order and meeting nutritional needs. Pt is a 73-year-old female admitted on 02/16 d/t psychosis . Per Meal/Nutrition Activity Record, Pt is eating 90% meals . HT: 55 WT: 146 LB (66.36 kg) BMI: 24.35 (Normal) GI: WNL, Flat, Soft, Non- Tender BM: Not noted I/O: 1620/Not Noted Skin: WNL, Intact Meet: 18 Diet Order: CCHO 60gm Estimated Energy Needs: ( Geriatric, CBW) 4816-6786 kcals (25-30 kcals/ kg) 66-79 g Pro (1.0-1.2 g/kg) 0540-6269 ml (25-30 ml/kg) Pt is eating 90% of meals Per Meal/Nutrition Activity Record . Dietary is currently providing an estimated 1287 kcals and 123 gm. Per pt PO intake, this is providing an estimated 1968 kcals and 110 gm Pro, to meet 100% kcal and 100% Pro needs adequate. Current Diet Order/ Nutrition Support [facility] 60 Pertinent Medications Glutose 40% (PRN), Colace, Glucagen (PRN), Glucophage, Theragran Pertinent Labs No Pertinent Lab Noted Nutritional Hx/Data Height 1.65 m Height (Calculated Centimeters) 165.1 Current Weight (lbs) 66.224 kg Weight (Calculated Kilograms) 66.2 Weight (Calculated Grams) 50075.5 [place] Body Weight 57 kg % [place] Body Weight 116 Body Mass Index (BMI) 24.3 Weight Status Approriate GI Symptoms GI Symptoms None Last BM Not noted Skin Integrity/Comment: WNL, Intact Meet: 18 Current %PO Good (75-100%) Estimated Nutritional Goals BEE in Kcals: Using Current wt Calories/Kcals/Kg 25-30 Kcals Calculated 6371-9521 Protein: Using Current wt Protein g/k.0-1.2 Protein Calculated 66-79 Fluid: ml 1793-2299 ml (25-30 ml/kg) Nutritional Problem No current Nutrition Prob Problem N/A Etiology N/A Signs/Symptoms: N/A Malnutrition Related to Morbid Obesity Malnutrition related to morbid obesity No Intervention/Recommendation Comments 1.Continue with [facility] 60 diet as ordered. Expected Outcomes/Goals Expected Outcomes/Goals 1.PO intake to continue to meet 75% of nutritional needs. 2.Monitor PO intake, wt, nutrition related labs, and skin integrity. 3.F/U as low risk in 7 days,
--- NOTE | 2019-02-20 20:19 | Progress Notes ---
DATE: SUBJECTIVE: Chart was reviewed and the patient interviewed. Also discussed the patient's condition with the staff and reviewed records and labs. The patient is still suspicious and is still very slow to respond to questions. She also is confused. The patient also is still wandering around. Also, her affect is flat. The patient denies any hallucinations or delusions, but she is still guarded and withdrawn and actively responding ASSESSMENT: The patient is still psychotic. TREATMENT PLAN: Continue Zyprexa 2.5 mg twice a day and Depakote 500 mg twice a day. Also, we will get a Depakote blood level. Also, continue working on behavioral modification. JOB# [id number]
[2019-02-21] MEDS: Eucerin Cream 16 oz Jar TP SCH ×2 (08:56→16:24)
[2019-02-21] MEDS: Multivitamin Tab PO SCH (08:56)
[2019-02-21] MEDS: Haldol Oral Sol.(concentrate) 10 mg/5 mL Udc PO SCH ×2 (08:57→16:24)
--- NOTE | 2019-02-21 20:15 | Internal Medicine Prog Note ---
Internal Medicine Subjective - Subjective Service Date: 02/21/19 Patient seen and examined:: without staff (SHE IS TAKING MEDICATION) Patient is:: awake, verbal, in bed, talking, confused Per staff patient has:: no adverse event Internal Medicine Objective - Physical Exam Vitals and I&O: Vital Signs Temp 99 F 02/21/19 19:52 Pulse 53 02/21/19 19:52 Resp 18 02/21/19 19:52 BP 131/74 02/21/19 19:52 Pulse Ox 98 02/21/19 19:52 Intake & Output 02/21/19 02/21/19 02/22/19 06:59 18:59 06:59 Intake Total 240 900 120 Balance 240 900 120 Intake: Oral 240 900 120 Other: # Voids 3 4 3 # Bowel Movements 0 1 0 Active Medications: Current Medications Acetaminophen (Tylenol) 650 mg PO Q4H PRN PRN Reason: Moderate Pain / Temp above 100 Stop: 04/17/19 23:04 Dextrose (Glutose 40%) 18.75 gm PO PRN PRN PRN Reason: Blood Glucose less than 70 Stop: 04/17/19 23:04 Docusate Sodium (Colace) 250 mg PO DAILY [facility] Stop: 04/18/19 08:59 Last Admin: 02/21/19 08:56 Dose: Not Given Glucagon (Glucagen) 1 mg IM PRN PRN PRN Reason: Blood Glucose less than 70 Stop: 04/17/19 23:04 Haloperidol Lactate (Haldol Concentrate 10mg/5ml Susp) 5 mg PO BID [facility]; Protocol Stop: 04/22/19 08:59 Last Admin: 02/21/19 16:24 Dose: 5 mg Lorazepam (Ativan) 0.5 mg PO Q6HR PRN; Protocol PRN Reason: Anxiety Stop: 04/17/19 23:23 Last Admin: 02/18/19 16:59 Dose: 0.5 mg Metformin HCl (Glucophage) 1,000 mg PO BID [facility] Stop: 04/18/19 08:59 Last Admin: 02/21/19 16:24 Dose: 1,000 mg Multi-Ingredient Cream (Eucerin Cream) 1 appl TP BID [facility] Stop: 04/18/19 08:59 Last Admin: 02/21/19 16:24 Dose: Not Given Multivitamins/Vitamin C (Theragran) 1 tab PO DAILY [facility] Stop: 04/18/19 08:59 Last Admin: 02/21/19 08:56 Dose: Not Given Olanzapine (Zyprexa) 2.5 mg PO BID [facility]; Protocol Stop: 04/18/19 08:59 Last Admin: 02/21/19 16:24 Dose: 2.5 mg Trihexyphenidyl HCl (Artane) 2 mg PO BID [facility] Stop: 04/18/19 08:59 Last Admin: 02/21/19 16:25 Dose: 2 mg Valproate Sodium (Depakene) 500 mg PO BID [facility]; Protocol Stop: 04/22/19 08:59 Last Admin: 02/21/19 16:25 Dose: 500 mg Zolpidem Tartrate (Ambien) 5 mg PO HS PRN PRN Reason: Insomnia Stop: 04/17/19 19:59 Last Admin: 02/19/19 21:01 Dose: 5 mg General: alert HEENT: NC/AT, PERRLA, EOMI, anicteric sclerae, throat clear Neck: Supple, No JVD, No thyromegaly, +2 carotid pulse wo bruit, No LAD, + JVD Lungs: CTAB Cardiovascular: RRR, Normal S1, Normal S2, without murmur Abdomen: non-tender, non-distended Extremities: clear Neurological: no change Internal Medicine Assmt/Plan - Assessment Assessment: 1.DM. 2.PVD OF LOWER EXTR. 3.PSYCHOSIS - Plan Plan: CONTINUE ON CURRENT MEDICATION AND DIET Nutritional Asmnt/Malnutr-PDOC - Dietary Evaluation Malnutrition Findings (Please click <Entered> for more info): Nutritional Asmnt/Malnutrition Start: 02/18/19 14: 04 Text: Status: Complete Freq: Protocol: Document 02/18/19 14:04 KAMINI (Rec: 02/18/19 14:08 [email or web address]) Nutritional Asmnt/Malnutrition Patient General Information Nutritional Screening Moderate Risk Diagnosis Psychosis Pertinent Medical Hx/Surgical Hx DM, Peripheral vascular disease of lower extremities, Psychosis Subjective Information Pt was downgraded from moderate risk to low risk d/t well tolerance to meal/diet order and meeting nutritional needs. Pt is a 73-year-old female admitted on 02/16 d/t psychosis . Per Meal/Nutrition Activity Record, Pt is eating 90% meals . HT: 55 WT: 146 LB (66.36 kg) BMI: 24.35 (Normal) GI: WNL, Flat, Soft, Non- Tender BM: Not noted I/O: 1620/Not Noted Skin: WNL, Intact Meet: 18 Diet Order: [facility] 60 Estimated Energy Needs: ( Geriatric, CBW) 8577-1133 kcals (25-30 kcals/ kg) 66-79 g Pro (1.0-1.2 g/kg) 4837-4132 ml (25-30 ml/kg) Pt is eating 90% of meals Per Meal/Nutrition Activity Record . Dietary is currently providing an estimated 1287 kcals and 123 gm. Per pt PO intake, this is providing an estimated 1968 kcals and 110 gm Pro, to meet 100% kcal and 100% Pro needs adequate. Current Diet Order/ Nutrition Support [facility] 60 Pertinent Medications Glutose 40% (PRN), Colace, Glucagen (PRN), Glucophage, Theragran Pertinent Labs No Pertinent Lab Noted Nutritional Hx/Data Height 1.65 m Height (Calculated Centimeters) 165.1 Current Weight (lbs) 66.224 kg Weight (Calculated Kilograms) 66.2 Weight (Calculated Grams) 84347.5 [place] Body Weight 57 kg % [place] Body Weight 116 Body Mass Index (BMI) 24.3 Weight Status Approriate GI Symptoms GI Symptoms None Last BM Not noted Skin Integrity/Comment: WNL, Intact Meet: 18 Current %PO Good (75-100%) Estimated Nutritional Goals BEE in Kcals: Using Current wt Calories/Kcals/Kg 25-30 Kcals Calculated 3657-7815 Protein: Using Current wt Protein g/k.0-1.2 Protein Calculated 66-79 Fluid: ml 5359-1179 ml (25-30 ml/kg) Nutritional Problem No current Nutrition Prob Problem N/A Etiology N/A Signs/Symptoms: N/A Malnutrition Related to Morbid Obesity Malnutrition related to morbid obesity No Intervention/Recommendation Comments 1.Continue with [facility] 60 diet as ordered. Expected Outcomes/Goals Expected Outcomes/Goals 1.PO intake to continue to meet 75% of nutritional needs. 2.Monitor PO intake, wt, nutrition related labs, and skin integrity. 3.F/U as low risk in 7 days,
[2019-02-22] MEDS: Eucerin Cream 16 oz Jar TP SCH ×2 (09:21→16:15)
[2019-02-22] MEDS: Multivitamin Tab PO SCH (09:27)
[2019-02-22] MEDS: Haldol Oral Sol.(concentrate) 10 mg/5 mL Udc PO SCH ×2 (09:27→16:15)
--- NOTE | 2019-02-22 20:53 | Progress Notes ---
DATE: 02/21/2019 DATE OF SERVICE: 02/21/2019 SUBJECTIVE: Chart was reviewed and the patient interviewed. Also discussed the patient's condition with the staff and reviewed the records and labs. The patient is still talking to herself and the patient is still actively hallucinating, but no major behavioral problems. The patient also is refusing to take her psychotropic medications and refusing actually all medications. She is still restless and anxious, but is slightly easier to redirect her except refusing to take medications. ASSESSMENT: The patient is still psychotic. TREATMENT PLAN: Continue monitoring her behavior and condition closely. Also, we will add Haldol liquid. Hopefully, the patient will be more compliant with taking the medicine and also change Depakote to liquid form. Also, continue to work on her ineffective coping and her psychosis and we will continue to follow up. JOB# [id number]
--- NOTE | 2019-02-22 21:04 | Internal Medicine Prog Note ---
Internal Medicine Subjective - Subjective Service Date: 02/22/19 Patient seen and examined:: without staff (SHE IS STABLE) Patient is:: awake, verbal, in bed, talking, confused Per staff patient has:: no adverse event Internal Medicine Objective - Physical Exam Vitals and I&O: Vital Signs Temp 97.6 F 02/22/19 13:47 Pulse 62 02/22/19 13:47 Resp 20 02/22/19 13:47 BP 138/77 02/22/19 13:47 Pulse Ox 99 02/22/19 13:47 Intake & Output 02/22/19 02/22/19 02/23/19 06:59 18:59 06:59 Intake Total 300 Balance 300 Intake: Oral 300 Other: # Voids 3 2 # Bowel Movements 0 1 Active Medications: Current Medications Acetaminophen (Tylenol) 650 mg PO Q4H PRN PRN Reason: Moderate Pain / Temp above 100 Stop: 04/17/19 23:04 Dextrose (Glutose 40%) 18.75 gm PO PRN PRN PRN Reason: Blood Glucose less than 70 Stop: 04/17/19 23:04 Docusate Sodium (Colace) 250 mg PO DAILY [facility] Stop: 04/18/19 08:59 Last Admin: 02/22/19 09:21 Dose: Not Given Glucagon (Glucagen) 1 mg IM PRN PRN PRN Reason: Blood Glucose less than 70 Stop: 04/17/19 23:04 Haloperidol Lactate (Haldol Concentrate 10mg/5ml Susp) 5 mg PO BID [facility]; Protocol Stop: 04/22/19 08:59 Last Admin: 02/22/19 16:15 Dose: Not Given Lorazepam (Ativan) 0.5 mg PO Q6HR PRN; Protocol PRN Reason: Anxiety Stop: 04/17/19 23:23 Last Admin: 02/18/19 16:59 Dose: 0.5 mg Metformin HCl (Glucophage) 1,000 mg PO BID [facility] Stop: 04/18/19 08:59 Last Admin: 02/22/19 16:15 Dose: Not Given Multi-Ingredient Cream (Eucerin Cream) 1 appl TP BID [facility] Stop: 04/18/19 08:59 Last Admin: 02/22/19 16:15 Dose: Not Given Multivitamins/Vitamin C (Theragran) 1 tab PO DAILY [facility] Stop: 04/18/19 08:59 Last Admin: 02/22/19 09:27 Dose: Not Given Olanzapine (Zyprexa) 2.5 mg PO BID [facility]; Protocol Stop: 04/18/19 08:59 Last Admin: 02/22/19 16:15 Dose: Not Given Trihexyphenidyl HCl (Artane) 2 mg PO BID [facility] Stop: 04/18/19 08:59 Last Admin: 02/22/19 16:15 Dose: Not Given Valproate Sodium (Depakene) 500 mg PO BID [facility]; Protocol Stop: 04/22/19 08:59 Last Admin: 02/22/19 16:15 Dose: Not Given Zolpidem Tartrate (Ambien) 5 mg PO HS PRN PRN Reason: Insomnia Stop: 04/17/19 19:59 Last Admin: 02/19/19 21:01 Dose: 5 mg General: alert HEENT: NC/AT, PERRLA, EOMI, anicteric sclerae, throat clear Neck: Supple, No JVD, No thyromegaly, +2 carotid pulse wo bruit, No LAD, + JVD Lungs: CTAB Cardiovascular: RRR, Normal S1, Normal S2, without murmur Abdomen: non-tender, non-distended Extremities: clear Neurological: no change Internal Medicine Assmt/Plan - Assessment Assessment: 1.DM. 2.PVD OF LOWER EXTR. 3.PSYCHOSIS - Plan Plan: CONTINUE ON CURRENT MEDICATION AND DIET Nutritional Asmnt/Malnutr-PDOC - Dietary Evaluation Malnutrition Findings (Please click <Entered> for more info): Nutritional Asmnt/Malnutrition Start: 02/18/19 14: 04 Text: Status: Complete Freq: Protocol: Document 02/18/19 14:04 KAMINI (Rec: 02/18/19 14:08 KAMINI [email or web address]) Nutritional Asmnt/Malnutrition Patient General Information Nutritional Screening Moderate Risk Diagnosis Psychosis Pertinent Medical Hx/Surgical Hx DM, Peripheral vascular disease of lower extremities, Psychosis Subjective Information Pt was downgraded from moderate risk to low risk d/t well tolerance to meal/diet order and meeting nutritional needs. Pt is a 73-year-old female admitted on 02/16 d/t psychosis . Per Meal/Nutrition Activity Record, Pt is eating 90% meals . HT: 55 WT: 146 LB (66.36 kg) BMI: 24.35 (Normal) GI: WNL, Flat, Soft, Non- Tender BM: Not noted I/O: 1620/Not Noted Skin: WNL, Intact Meet: 18 Diet Order: [facility] 60 Estimated Energy Needs: ( Geriatric, CBW) 0357-7607 kcals (25-30 kcals/ kg) 66-79 g Pro (1.0-1.2 g/kg) 8459-0593 ml (25-30 ml/kg) Pt is eating 90% of meals Per Meal/Nutrition Activity Record . Dietary is currently providing an estimated 1287 kcals and 123 gm. Per pt PO intake, this is providing an estimated 1968 kcals and 110 gm Pro, to meet 100% kcal and 100% Pro needs adequate. Current Diet Order/ Nutrition Support [facility] 60 Pertinent Medications Glutose 40% (PRN), Colace, Glucagen (PRN), Glucophage, Theragran Pertinent Labs No Pertinent Lab Noted Nutritional Hx/Data Height 1.65 m Height (Calculated Centimeters) 165.1 Current Weight (lbs) 66.224 kg Weight (Calculated Kilograms) 66.2 Weight (Calculated Grams) 05311.5 [place] Body Weight 57 kg % [place] Body Weight 116 Body Mass Index (BMI) 24.3 Weight Status Approriate GI Symptoms GI Symptoms None Last BM Not noted Skin Integrity/Comment: WNL, Intact Meet: 18 Current %PO Good (75-100%) Estimated Nutritional Goals BEE in Kcals: Using Current wt Calories/Kcals/Kg 25-30 Kcals Calculated 3279-6803 Protein: Using Current wt Protein g/k.0-1.2 Protein Calculated 66-79 Fluid: ml 8529-4894 ml (25-30 ml/kg) Nutritional Problem No current Nutrition Prob Problem N/A Etiology N/A Signs/Symptoms: N/A Malnutrition Related to Morbid Obesity Malnutrition related to morbid obesity No Intervention/Recommendation Comments 1.Continue with [facility] 60 diet as ordered. Expected Outcomes/Goals Expected Outcomes/Goals 1.PO intake to continue to meet 75% of nutritional needs. 2.Monitor PO intake, wt, nutrition related labs, and skin integrity. 3.F/U as low risk in 7 days,
[2019-02-23] MEDS: Haldol Oral Sol.(concentrate) 10 mg/5 mL Udc PO SCH ×3 (08:27→16:09)
[2019-02-23] MEDS: Multivitamin Tab PO SCH ×2 (08:29→08:36)
[2019-02-23] MEDS: Eucerin Cream 16 oz Jar TP SCH ×3 (08:31→16:09)
--- NOTE | 2019-02-23 22:21 | Progress Notes ---
DATE: 02/23/2019 SUBJECTIVE: Chart was reviewed and the patient interviewed. Also discussed the patient's condition with the staff and reviewed records and labs. The patient is still extremely irritable and is still extremely angry, but easier to redirect her. The patient also is still noncompliant with treatment recommendations. The patient also is refusing to take medications. The patient also is still restless and she is still interacting minimally with others and needs redirections. Otherwise, the patient is compliant with taking her medications with no side effects of medications. ASSESSMENT: The patient is still agitated and is still in irritable mood. TREATMENT PLAN: We will continue to monitor behavior and condition closely. Also, continue adjusting psychotropic medications and work on behavioral modification. [facility]# [id number]
--- NOTE | 2019-02-23 22:34 | Internal Medicine Prog Note ---
Internal Medicine Subjective - Subjective Patient seen and examined:: without staff (SHE IS QUITE,STILL CONFUSED) Patient is:: awake, verbal, in bed, talking, confused Per staff patient has:: no adverse event Internal Medicine Objective - Physical Exam Vitals and I&O: Vital Signs Temp 97.2 F 02/23/19 20:44 Pulse 59 02/23/19 20:44 Resp 18 02/23/19 20:44 BP 115/76 02/23/19 20:44 Pulse Ox 96 02/23/19 20:44 Intake & Output 02/23/19 02/23/19 02/24/19 06:59 18:59 06:59 Intake Total 120 1500 240 Balance 120 1500 240 Intake: Oral 120 1500 240 Other: # Voids 3 3 2 # Bowel Movements 0 0 Active Medications: Current Medications Acetaminophen (Tylenol) 650 mg PO Q4H PRN PRN Reason: Moderate Pain / Temp above 100 Stop: 04/17/19 23:04 Dextrose (Glutose 40%) 18.75 gm PO PRN PRN PRN Reason: BS Below 70 & not tolerate po Stop: 04/17/19 23:04 Docusate Sodium (Colace) 250 mg PO DAILY [facility] Stop: 04/18/19 08:59 Last Admin: 02/23/19 08:37 Dose: Not Given Glucagon (Glucagen) 1 mg IM PRN PRN PRN Reason: BS Below 70 & not tolerate po Stop: 04/17/19 23:04 Haloperidol Lactate (Haldol Concentrate 10mg/5ml Susp) 5 mg PO BID [facility]; Protocol Stop: 04/22/19 08:59 Last Admin: 02/23/19 16:09 Dose: Not Given Lorazepam (Ativan) 0.5 mg PO Q6HR PRN; Protocol PRN Reason: Anxiety Stop: 04/17/19 23:23 Last Admin: 02/18/19 16:59 Dose: 0.5 mg Metformin HCl (Glucophage) 1,000 mg PO BID [facility] Stop: 04/18/19 08:59 Last Admin: 02/23/19 16:09 Dose: Not Given Multi-Ingredient Cream (Eucerin Cream) 1 appl TP BID [facility] Stop: 04/18/19 08:59 Last Admin: 02/23/19 16:09 Dose: Not Given Multivitamins/Vitamin C (Theragran) 1 tab PO DAILY [facility] Stop: 04/18/19 08:59 Last Admin: 02/23/19 08:36 Dose: Not Given Olanzapine (Zyprexa) 2.5 mg PO BID [facility]; Protocol Stop: 04/18/19 08:59 Last Admin: 02/23/19 16:09 Dose: Not Given Trihexyphenidyl HCl (Artane) 2 mg PO BID [facility] Stop: 04/18/19 08:59 Last Admin: 02/23/19 16:10 Dose: Not Given Valproate Sodium (Depakene) 500 mg PO BID [facility]; Protocol Stop: 04/22/19 08:59 Last Admin: 02/23/19 16:10 Dose: Not Given Zolpidem Tartrate (Ambien) 5 mg PO HS PRN PRN Reason: Insomnia Stop: 04/17/19 19:59 Last Admin: 02/19/19 21:01 Dose: 5 mg General: alert HEENT: NC/AT, PERRLA, EOMI, anicteric sclerae, throat clear Neck: Supple, No JVD, No thyromegaly, +2 carotid pulse wo bruit, No LAD, + JVD Lungs: CTAB Cardiovascular: RRR, Normal S1, Normal S2, without murmur Abdomen: non-tender, non-distended Extremities: clear Neurological: no change Internal Medicine Assmt/Plan - Assessment Assessment: 1.DM. 2.PVD OF LOWER EXTR. 3.PSYCHOSIS - Plan Plan: CONTINUE ON CURRENT MEDICATION AND DIET Nutritional Asmnt/Malnutr-PDOC - Dietary Evaluation Malnutrition Findings (Please click <Entered> for more info): Nutritional Asmnt/Malnutrition Start: 02/18/19 14: 04 Text: Status: Complete Freq: Protocol: Document 02/18/19 14:04 KAMINI (Rec: 02/18/19 14:08 KAMINI [email or web address]) Nutritional Asmnt/Malnutrition Patient General Information Nutritional Screening Moderate Risk Diagnosis Psychosis Pertinent Medical Hx/Surgical Hx DM, Peripheral vascular disease of lower extremities, Psychosis Subjective Information Pt was downgraded from moderate risk to low risk d/t well tolerance to meal/diet order and meeting nutritional needs. Pt is a 73-year-old female admitted on 02/16 d/t psychosis . Per Meal/Nutrition Activity Record, Pt is eating 90% meals . HT: 55 WT: 146 LB (66.36 kg) BMI: 24.35 (Normal) GI: WNL, Flat, Soft, Non- Tender BM: Not noted I/O: 1620/Not Noted Skin: WNL, Intact Meet: 18 Diet Order: [facility] 60 Estimated Energy Needs: ( Geriatric, CBW) 8999-3112 kcals (25-30 kcals/ kg) 66-79 g Pro (1.0-1.2 g/kg) 6847-0840 ml (25-30 ml/kg) Pt is eating 90% of meals Per Meal/Nutrition Activity Record . Dietary is currently providing an estimated 1287 kcals and 123 gm. Per pt PO intake, this is providing an estimated 1968 kcals and 110 gm Pro, to meet 100% kcal and 100% Pro needs adequate. Current Diet Order/ Nutrition Support [facility] 60 Pertinent Medications Glutose 40% (PRN), Colace, Glucagen (PRN), Glucophage, Theragran Pertinent Labs No Pertinent Lab Noted Nutritional Hx/Data Height 1.65 m Height (Calculated Centimeters) 165.1 Current Weight (lbs) 66.224 kg Weight (Calculated Kilograms) 66.2 Weight (Calculated Grams) 55021.5 [place] Body Weight 57 kg % [place] Body Weight 116 Body Mass Index (BMI) 24.3 Weight Status Approriate GI Symptoms GI Symptoms None Last BM Not noted Skin Integrity/Comment: WNL, Intact Meet: 18 Current %PO Good (75-100%) Estimated Nutritional Goals BEE in Kcals: Using Current wt Calories/Kcals/Kg 25-30 Kcals Calculated 5165-4403 Protein: Using Current wt Protein g/k.0-1.2 Protein Calculated 66-79 Fluid: ml 3151-7273 ml (25-30 ml/kg) Nutritional Problem No current Nutrition Prob Problem N/A Etiology N/A Signs/Symptoms: N/A Malnutrition Related to Morbid Obesity Malnutrition related to morbid obesity No Intervention/Recommendation Comments 1.Continue with [facility] 60 diet as ordered. Expected Outcomes/Goals Expected Outcomes/Goals 1.PO intake to continue to meet 75% of nutritional needs. 2.Monitor PO intake, wt, nutrition related labs, and skin integrity. 3.F/U as low risk in 7 days,
--- NOTE | 2019-02-23 23:43 | Progress Notes ---
DATE: 02/22/2019 DATE OF SERVICE: 02/22/2019 SUBJECTIVE: Chart was reviewed and the patient interviewed. Also discussed the patient's condition with the staff and reviewed records and labs. The patient is still extremely angry and she is still in irritable mood. The patient also is still suspicious and is still paranoid and wants to be left alone. As long as the patient is left alone, no major behavioral issues or behavioral problems. She still has episodes of anger, but less than before. The patient also is not yelling or screaming. The patient is refusing medications and in spite of trying to explain to the patient the importance of taking medications, yet she still has difficulty following. ASSESSMENT: The patient is still agitated and psychotic, but no major behavioral problems. TREATMENT PLAN: Continue to work on her compliance with medications and adjusting psychotropic medications. Also, work on her behavior and to follow up. [facility]# [id number]
[2019-02-24] MEDS: Multivitamin Tab PO SCH (08:51)
[2019-02-24] MEDS: Haldol Oral Sol.(concentrate) 10 mg/5 mL Udc PO SCH ×2 (08:51→16:09)
[2019-02-24] MEDS: Eucerin Cream 16 oz Jar TP SCH ×2 (09:23→16:09)
--- NOTE | 2019-02-24 17:14 | Internal Medicine Prog Note ---
Internal Medicine Subjective - Subjective Service Date: 02/24/19 Patient seen and examined:: without staff (SHE IS CONFUSED) Patient is:: awake, verbal, in bed, talking, confused Per staff patient has:: no adverse event Internal Medicine Objective - Physical Exam Vitals and I&O: Vital Signs Temp 97.9 F 02/24/19 14:00 Pulse 56 02/24/19 14:00 Resp 20 02/24/19 14:00 BP 120/59 02/24/19 14:00 Pulse Ox 100 02/24/19 14:00 Intake & Output 02/23/19 02/24/19 02/24/19 18:59 06:59 18:59 Intake Total 1500 240 Balance 1500 240 Intake: Oral 1500 240 Other: # Voids 3 1 # Bowel Movements 0 0 Active Medications: Current Medications Acetaminophen (Tylenol) 650 mg PO Q4H PRN PRN Reason: Moderate Pain / Temp above 100 Stop: 04/17/19 23:04 Dextrose (Glutose 40%) 18.75 gm PO PRN PRN PRN Reason: BS Below 70 & not tolerate po Stop: 04/17/19 23:04 Docusate Sodium (Colace) 250 mg PO DAILY [facility] Stop: 04/18/19 08:59 Last Admin: 02/24/19 08:51 Dose: 250 mg Glucagon (Glucagen) 1 mg IM PRN PRN PRN Reason: BS Below 70 & not tolerate po Stop: 04/17/19 23:04 Haloperidol Lactate (Haldol Concentrate 10mg/5ml Susp) 5 mg PO BID [facility]; Protocol Stop: 04/22/19 08:59 Last Admin: 02/24/19 16:09 Dose: 5 mg Lorazepam (Ativan) 0.5 mg PO Q6HR PRN; Protocol PRN Reason: Anxiety Stop: 04/17/19 23:23 Last Admin: 02/18/19 16:59 Dose: 0.5 mg Metformin HCl (Glucophage) 1,000 mg PO BID [facility] Stop: 04/18/19 08:59 Last Admin: 02/24/19 16:09 Dose: 1,000 mg Multi-Ingredient Cream (Eucerin Cream) 1 appl TP BID [facility] Stop: 04/18/19 08:59 Last Admin: 02/24/19 16:09 Dose: 1 appl Multivitamins/Vitamin C (Theragran) 1 tab PO DAILY [facility] Stop: 04/18/19 08:59 Last Admin: 02/24/19 08:51 Dose: 1 tab Olanzapine (Zyprexa) 2.5 mg PO BID [facility]; Protocol Stop: 04/18/19 08:59 Last Admin: 02/24/19 16:09 Dose: 2.5 mg Trihexyphenidyl HCl (Artane) 2 mg PO BID [facility] Stop: 04/18/19 08:59 Last Admin: 02/24/19 16:09 Dose: 2 mg Valproate Sodium (Depakene) 500 mg PO BID [facility]; Protocol Stop: 04/22/19 08:59 Last Admin: 02/24/19 16:10 Dose: 500 mg Zolpidem Tartrate (Ambien) 5 mg PO HS PRN PRN Reason: Insomnia Stop: 04/17/19 19:59 Last Admin: 02/19/19 21:01 Dose: 5 mg General: alert HEENT: NC/AT, PERRLA, EOMI, anicteric sclerae, throat clear Neck: Supple, No JVD, No thyromegaly, +2 carotid pulse wo bruit, No LAD, + JVD Lungs: CTAB Cardiovascular: RRR, Normal S1, Normal S2, without murmur Abdomen: non-tender, non-distended Extremities: clear Neurological: no change Internal Medicine Assmt/Plan - Assessment Assessment: 1.DM. 2.PVD OF LOWER EXTR. 3.PSYCHOSIS - Plan Plan: CONTINUE ON CURRENT MEDICATION AND DIET Nutritional Asmnt/Malnutr-PDOC - Dietary Evaluation Malnutrition Findings (Please click <Entered> for more info): Nutritional Asmnt/Malnutrition Start: 02/18/19 14: 04 Text: Status: Complete Freq: Protocol: Document 02/18/19 14:04 KAMINI (Rec: 02/18/19 14:08 KAMINI [email or web address]) Nutritional Asmnt/Malnutrition Patient General Information Nutritional Screening Moderate Risk Diagnosis Psychosis Pertinent Medical Hx/Surgical Hx DM, Peripheral vascular disease of lower extremities, Psychosis Subjective Information Pt was downgraded from moderate risk to low risk d/t well tolerance to meal/diet order and meeting nutritional needs. Pt is a 73-year-old female admitted on 02/16 d/t psychosis . Per Meal/Nutrition Activity Record, Pt is eating 90% meals . HT: 55 WT: 146 LB (66.36 kg) BMI: 24.35 (Normal) GI: WNL, Flat, Soft, Non- Tender BM: Not noted I/O: 1620/Not Noted Skin: WNL, Intact Meet: 18 Diet Order: [facility] 60 Estimated Energy Needs: ( Geriatric, CBW) 8606-4252 kcals (25-30 kcals/ kg) 66-79 g Pro (1.0-1.2 g/kg) 8676-8454 ml (25-30 ml/kg) Pt is eating 90% of meals Per Meal/Nutrition Activity Record . Dietary is currently providing an estimated 1287 kcals and 123 gm. Per pt PO intake, this is providing an estimated 1968 kcals and 110 gm Pro, to meet 100% kcal and 100% Pro needs adequate. Current Diet Order/ Nutrition Support [facility] 60 Pertinent Medications Glutose 40% (PRN), Colace, Glucagen (PRN), Glucophage, Theragran Pertinent Labs No Pertinent Lab Noted Nutritional Hx/Data Height 1.65 m Height (Calculated Centimeters) 165.1 Current Weight (lbs) 66.224 kg Weight (Calculated Kilograms) 66.2 Weight (Calculated Grams) 71671.5 [place] Body Weight 57 kg % [place] Body Weight 116 Body Mass Index (BMI) 24.3 Weight Status Approriate GI Symptoms GI Symptoms None Last BM Not noted Skin Integrity/Comment: WNL, Intact Meet: 18 Current %PO Good (75-100%) Estimated Nutritional Goals BEE in Kcals: Using Current wt Calories/Kcals/Kg 25-30 Kcals Calculated 7436-8687 Protein: Using Current wt Protein g/k.0-1.2 Protein Calculated 66-79 Fluid: ml 5409-3563 ml (25-30 ml/kg) Nutritional Problem No current Nutrition Prob Problem N/A Etiology N/A Signs/Symptoms: N/A Malnutrition Related to Morbid Obesity Malnutrition related to morbid obesity No Intervention/Recommendation Comments 1.Continue with [facility] 60 diet as ordered. Expected Outcomes/Goals Expected Outcomes/Goals 1.PO intake to continue to meet 75% of nutritional needs. 2.Monitor PO intake, wt, nutrition related labs, and skin integrity. 3.F/U as low risk in 7 days,
[2019-02-25] MEDS: Eucerin Cream 16 oz Jar TP SCH (08:08)
[2019-02-25] MEDS: Multivitamin Tab PO SCH (08:08)
[2019-02-25] MEDS: Haldol Oral Sol.(concentrate) 10 mg/5 mL Udc PO SCH (08:08)
--- NOTE | 2019-02-26 10:16 | Progress Notes ---
DATE: 02/25/2019 DATE OF SERVICE: 02/25/2019 SUBJECTIVE: Chart was reviewed and the patient interviewed. Also discussed the patient's condition with the staff and reviewed records and labs. Patient is still responding and actively hallucinating. The patient is talking to herself. At the same time, the patient not screaming as much and she is cooperative and compliant with taking her medications. The patient also is still restless and she is still in irritable mood at times. She also still needs close monitoring and close observation. Otherwise, the patient is compliant with taking her medications with no side effects of medications. ASSESSMENT: The patient is still anxious and psychotic on event monitoring. TREATMENT PLAN: Continue monitoring her behavior and her condition closely. Also, continue adjusting medications and working on discharge plans. [facility]# [id number]
== END 2019-02-25 12:30 | DRG 885 ==
LOC: GERO 16:06
PROVIDERS: ADMIT Psychiatry & Neurology Psychiatry; ATTEND Psychiatry & Neurology Psychiatry
DX: F29 Unspecified psychosis not due to a substance or known physiological condition (principal); F03.91 Unspecified dementia, unspecified severity, with behavioral disturbance; L03.116 Cellulitis of left lower limb; E11.51 Type 2 diabetes mellitus with diabetic peripheral angiopathy without gangrene; F41.9 Anxiety disorder, unspecified
CPT/HCPCS: 83036-90

== ENCOUNTER 2019-09-13 18:28 | Inpatient (IN) | payer MEDICARE, MEDICAID ==
[2019-09-14] MEDS: Multivitamin Tab PO SCH (09:24)
[2019-09-14] MEDS ORDERED: Trihexyphenidyl HCl 2 mg/5 mL UDC PO SCH (10:30)
[2019-09-14] MEDS ORDERED: Haloperidol Lactate Oral sol. 2 mg/mL Udc PO SCH (10:30)
[2019-09-14] MEDS: Haldol Oral Sol.(concentrate) 10 mg/5 mL Udc PO SCH (20:32)
[2019-09-14] MEDS ORDERED: GLUCAGON HCl 1 MG KIT IM PRN ×2 (20:46→20:58)
[2019-09-14] MEDS ORDERED: Magnesium Hydroxide (MOM) 30 mL UDC PO PRN (21:00)
--- NOTE | 2019-09-14 21:12 | Psychiatric Evaluation ---
DATE OF SERVICE: 09/14/2019 PSYCHIATRIC INITIAL EVALUATION AND MENTAL STATUS EXAM PATIENT'S AGE: 74. SEX: Female. PHYSICIAN: Dr. Garcia. CHIEF COMPLAINT: Verbal and physical aggression. HISTORY OF PRESENT ILLNESS: The patient is a 74-year-old female who was transferred to the hospital because of increased verbal and physical aggression towards staff in [facility]. The patient has been irritable and agitated and has been having difficulty with her moods. The patient was resisting care and angry for no apparent reason. Staff was not able to handle her aggressive behavior and her irritability and the patient was transferred to [facility] where she was medically cleared and she was transferred to [facility] for evaluation and stabilization of her condition. The patient has been increasingly agitated and uncooperative. She has been refusing her vital signs in the facility. Also, she was refusing to answer most of my questions and she seems to be suspicious and paranoid. Also, her ADLs, has been poor. The patient also has been using her wheelchair and is in angry and confused state. PAST PSYCHIATRIC HISTORY: The patient has a history of what seems to be mood disorder versus schizoaffective disorder. PAST MEDICAL HISTORY: The patient has a history of gastroesophageal reflux disease, seizure disorder, and possible hypertension. FAMILY PSYCHIATRIC HISTORY: Nothing reported. PAIN ASSESSMENT: Nothing reported, but the patient is on wheelchair. SOCIAL HISTORY: The patient lives in [facility]. No known alcohol or street drug use. ALLERGIES: No known allergies. MENTAL STATUS EXAMINATION: The patient appears older than her stated age. Angry. Disheveled. Suspicious and paranoid and the patient was looking around in a paranoid way during my interview. The patient did not answer question regarding hallucinations or delusions, but seems to be preoccupied. The patient did not answer question regarding suicide or homicide. The patient is alert, but seems to be disoriented to place and person at this time, but at the same time, she was not answering most of my questions. The patient's immediate and recent memory is not clear at that time, but she knows that she is in a hospital, but she does not want to be here and she is oriented to situation and also her remote memory is intact and she remembered her date. Poor insight and poor judgment. ASSESSMENT: PRIMARY DIAGNOSIS: Schizoaffective disorder, mixed episode, severe, with psychotic features. MEDICAL DIAGNOSES: 1. Seizure. 2. Diabetes mellitus. 3. Peripheral vascular disease. TREATMENT PLAN: We will monitor the patient's behavior and condition closely because of her agitation and aggressive behavior. We will start individual as well as milieu psychotherapy. We will monitor psychotropic medications. ESTIMATED LENGTH OF STAY: 5-7 days. PATIENT'S STRENGTHS AND WEAKNESSES: The patient's strength is not clear at this time. Weaknesses is her poor impulse control and her agitation. AFTER DISCHARGE PLAN: Outpatient treatment and followup will continue as an outpatient. CRITERIA FOR DISCHARGE: The patient will not be as aggressive and will stabilize on psychotropic medications and will establish outpatient treatment plans. JOB# [id number]
--- NOTE | 2019-09-14 21:26 | Psychiatric Evaluation ---
DATE OF SERVICE: 09/14/2019 PSYCHIATRIC INITIAL EVALUATION AND MENTAL STATUS EXAM PATIENT'S AGE: 74. SEX: Female. PHYSICIAN: Dr. Garcia. CHIEF COMPLAINT: Agitation and aggressive behavior. HISTORY OF PRESENT ILLNESS: The patient is a 74-year-old female with history of schizoaffective disorder. The patient was admitted to the hospital because of increased agitation and aggressive behavior and kicking staff in the facility. The patient also has been in angry and irritable mood and has been having difficulty following directions. She also has been suspicious and has been paranoid. Otherwise, the patient has been taking Haldol and Zyprexa with no much help. PAST PSYCHIATRIC HISTORY: The patient has a history of schizoaffective disorder. PAST MEDICAL HISTORY: The patient has a history of seizure disorder. SOCIAL HISTORY: The patient lives in [facility]. No known alcohol or street drug use. MENTAL STATUS EXAMINATION: The patient appears her stated age. Anxious. Irritable moods. Disorganized thoughts. Paranoid and suspicious and refusing to sign any papers and refusing the care from the staff. Thought processes are circumstantial with anger and poverty of speech at times. The patient denies any hallucinations, but seems to be suspicious and severely paranoid. The patient is alert and oriented to person, place, and situation. Intact immediate, recent, and remote memories. Poor insight and poor judgment and she is resisting care and fighting and kicking staff ASSESSMENT: PRIMARY DIAGNOSIS: Schizoaffective disorder, bipolar type, severe, with psychotic features. MEDICAL DIAGNOSES: Seizure disorder. TREATMENT PLAN: Continue to monitor her behavior and her condition closely. The patient also continued to take Haldol 2.5 mg in the morning and 5 mg at bedtime and continue current dose, but also we will adjust the dose. Also, we will try to have only 1 psychotropic medication. Also, work on behavioral modification. ESTIMATED LENGTH OF STAY: 5-7 days. PATIENT'S STRENGTHS AND WEAKNESSES: The patient's strength is not very clear at this time except the patient seems to be in a relatively fair health. Weaknesses are her poor judgment and poor impulse control and resisting the care. AFTER DISCHARGE PLAN: The patient will return to [facility] with plans for outpatient followup there. CRITERIA FOR DISCHARGE: The patient will not be agitated and will stabilize on psychotropic medications and will establish outpatient treatment plans. [facility]# [id number]
[2019-09-14] MEDS: INSULIN LISPRO SLIDING SCALE 100 UNITS/ML UNIT SUBQ SCH (21:33)
--- NOTE | 2019-09-14 22:11 | History & Physical ---
ADMIT DATE: 09/14/2019 HISTORY OF PRESENT ILLNESS: The patient is a 74-year-old female with long history of diabetes mellitus, dementia, and psychosis, admitted to [facility] under Dr. Garcia's service. The patient is a poor historian. No fever, no chills. The patient resumed her medication and diet, sliding scale with regular insulin coverage. PAST MEDICAL HISTORY: Significant for diabetes mellitus, constipation, dementia, psychosis. PAST SURGICAL HISTORY: No recent surgery. ALLERGIES: None. MEDICATIONS: Follow admission reconciliation. SOCIAL HISTORY: No smoking, alcohol or drug. FAMILY HISTORY: Noncontributory. REVIEW OF SYSTEMS: RENAL SYSTEM: No history of chronic renal disorder. CARDIOVASCULAR SYSTEM: No coronary artery disease. ENDOCRINE SYSTEM: She has history of diabetes mellitus. No thyroid problem. GASTROINTESTINAL SYSTEM: She has a history of constipation. NEUROLOGICAL SYSTEM: No seizure disorder. SKELETOMUSCULAR SYSTEM: No muscular dystrophy. HEMATOLOGICAL SYSTEM: No bleeding tendencies. RESPIRATORY SYSTEM: No asthma. GENITOURINARY SYSTEM: No dysuria or hematuria. PHYSICAL EXAMINATION: GENERAL: She is awake, not coherent. VITAL SIGNS: Temperature 97.8, heart rate 68, blood pressure 103/53. HEENT: Pupils reactive to light and accommodation. Sclerae clear. NECK: Supple. Negative for lymphadenopathy, JVD or bruit. CHEST: Entry of air bilaterally normal. No rhonchi or wheezing. HEART: S1, S2 normal. No gallop rhythm. ABDOMEN: Soft, bowel sounds positive. EXTREMITIES: No edema. NEUROLOGIC: She is awake, alert, not fully oriented. No focal muscle deficit. Cranial nerve 1: The patient is not compliant with the test. Cranial nerve 2: The patient is not compliant with the test. Cranial nerve 3: The patient is able to move eyeball upward and outward. Cranial nerve 4: The patient is able to move eyeball inward and downward. Cranial nerve 5: The patient able to clench teeth, has normal sensation to forehead. Cranial nerve 6: The patient able to move eyeball lateral on both sides. Cranial nerve 7: The patient able to move eyebrow upwards on both sides. Cranial nerve 8: The patient able to hear finger rubs on both sides. Cranial nerve 9: The patient has normal gag reflex. Cranial nerve 10: The patient is able to move soft palate upward on each side. Cranial nerve 11: The patient able to shrug shoulder on both sides. Cranial nerve 12: The patient able to stick tongue straight. Motor examination is within normal limits. Deep tendon reflexes within normal limits. Coordination of muscles within normal limits. Sensory system: She has a normal pain, touch, position of the upper extremities. Gait is stable. SKIN: Examination is intact. ASSESSMENT: 1. Diabetes mellitus. 2. Constipation. 3. Dementia. 4. Psychosis. PLAN: The patient in the hospital under Dr. Garcia's service. Medical problems addressed during this hospitalization are psychosis. Medical problem addressed at discharge are diabetes mellitus and constipation. The patient is medically stable for activity. Thank you Dr. Garcia for asking me to see your patient. The patient is a full code. JOB# [id number]
[2019-09-15] MEDS: INSULIN LISPRO SLIDING SCALE 100 UNITS/ML UNIT SUBQ SCH ×4 (06:34→20:46)
--- NOTE | 2019-09-15 07:27 | Progress Notes ---
DATE: 09/15/2019 SUBJECTIVE: Chart was reviewed and the patient interviewed. Also discussed the patient's condition with the staff and reviewed the records and labs. The patient seems to be calmer, but still has episodes of irritability and agitation. The patient also is still uncooperative with the staff and refused to take her insulin yesterday morning, but she took the rest of her medications. She also still seems to be suspicious and paranoid. Otherwise, she is easier to follow directions and she slept better last night. During interview, the patient is unkempt with irritable mood and thought processes are circumstantial. ASSESSMENT: The patient is still psychotic. TREATMENT PLAN: We will discontinue Zyprexa and will decrease Haldol to only 5 mg at bedtime. Also, we will increase Depakote to 500 mg twice a day and we will monitor Depakote blood level. Also, continue to work on her impulse control and irritability. JOB# [id number]
[2019-09-15] MEDS ORDERED: Multivitamin Tab PO SCH (09:00)
[2019-09-15] MEDS: Multivitamin Tab PO SCH (09:55)
--- NOTE | 2019-09-15 19:11 | Internal Medicine Prog Note ---
Internal Medicine Subjective - Subjective Service Date: 09/15/19 Patient seen and examined:: with staff Patient is:: awake, non-verbal, in bed, talking, confused Per staff patient has:: no adverse event Internal Medicine Objective - Physical Exam Vitals and I&O: Vital Signs Temp 98.3 F 09/15/19 14:00 Pulse 69 09/15/19 14:00 Resp 18 09/15/19 14:00 BP 105/54 09/15/19 14:00 Pulse Ox 100 09/15/19 14:00 Intake & Output 09/15/19 09/15/19 09/16/19 06:59 18:59 06:59 Intake Total 120 Balance 120 Intake: Oral 120 Other: # Voids 1 3 # Bowel Movements 0 1 Active Medications: Current Medications Acetaminophen (Tylenol) 650 mg PO Q4H PRN PRN Reason: Pain (Mild 1-3) Stop: 11/13/19 07:11 Acetaminophen (Tylenol) 650 mg PO Q4H PRN PRN Reason: For Temperature Above 100.4 Stop: 11/13/19 20:45 Dextrose (Glutose 40%) 18.75 gm PO PRN PRN PRN Reason: Blood Glucose less than 70 Stop: 11/13/19 20:57 Docusate Sodium (Colace) 250 mg PO DAILY [facility] Stop: 11/14/19 08:59 Last Admin: 09/15/19 09:55 Dose: Not Given Glucagon (Glucagen) 1 mg IM PRN PRN PRN Reason: BS Below 70 & not tolerate po Stop: 11/13/19 20:45 Haloperidol Lactate (Haldol Concentrate 10mg/5ml Susp) 5 mg PO HS [facility]; Protocol Stop: 11/13/19 20:59 Last Admin: 09/14/19 20:32 Dose: 5 mg Insulin Human Lispro (Humalog Insulin Sliding Scale) 0 units SUBQ ACHS [facility]; Protocol Stop: 11/13/19 20:59 Last Admin: 09/15/19 16:36 Dose: Not Given Lorazepam (Ativan) 0.5 mg PO Q4HR PRN; Protocol PRN Reason: Anxiety Stop: 10/14/19 07:11 Magnesium Hydroxide (Milk Of Magnesia) 30 ml PO HS PRN PRN Reason: Constipation Metformin HCl (Glucophage) 1,000 mg PO BIDWM [facility] Stop: 11/13/19 17:59 Last Admin: 09/15/19 10:24 Dose: Not Given Multivitamins/Vitamin C (Theragran) 1 tab PO DAILY [facility] Stop: 11/13/19 08:59 Last Admin: 09/15/19 09:55 Dose: 1 tab Trihexyphenidyl HCl (Artane) 2 mg PO BID [facility] Stop: 11/13/19 10:29 Last Admin: 09/15/19 17:35 Dose: Not Given Valproate Sodium (Depakene) 500 mg PO BID [facility]; Protocol Stop: 11/14/19 08:59 Last Admin: 09/15/19 17:35 Dose: Not Given Zolpidem Tartrate (Ambien) 5 mg PO HS PRN PRN Reason: Insomnia Stop: 11/13/19 20:59 General: demented HEENT: NC/AT, PERRLA, EOMI, anicteric sclerae, throat clear Neck: Supple, No JVD, No thyromegaly, +2 carotid pulse wo bruit, No LAD Lungs: CTAB Cardiovascular: RRR, Normal S1, Normal S2, without murmur Abdomen: non-tender, non-distended Extremities: clear Neurological: no change Internal Medicine Assmt/Plan - Assessment Assessment: 1.DM. 2.CONSTIPATION 3.DEMENTIA. 4.PSYCHOSIS - Plan Plan: CONTINUE ON CURRENT MEDICATION AND DIET
[2019-09-15] MEDS: Haldol Oral Sol.(concentrate) 10 mg/5 mL Udc PO SCH (20:45)
[2019-09-16] MEDS: INSULIN LISPRO SLIDING SCALE 100 UNITS/ML UNIT SUBQ SCH ×4 (06:35→21:30)
[2019-09-16 06:51] VITALS: BP 125/63
[2019-09-16] MEDS: Multivitamin Tab PO SCH (08:54)
--- NOTE | 2019-09-16 13:41 | Progress Notes ---
DATE: SUBJECTIVE: Chart was reviewed and the patient interviewed. Also discussed the patient's condition with the staff and reviewed records and labs. The patient is still anxious and the patient still has episodes of irritability and easily agitated. The patient also is still in irritable and angry mood. She also is still withdrawn. The patient is still resisting care and still has difficulty following any of staff directions and she still needs close monitoring. She also is still having mood swings. Otherwise, the patient continued to take Depakote with no side effects and she also continued to take Haldol. Because of the patient's age, I will stop Haldol at this time and continue Depakote. Also we will continue to monitor Depakote blood level. ASSESSMENT: The patient is still in irritable mood and she is still psychotic. TREATMENT PLAN: We will get a Depakote blood level. Also, continue to monitor her behavior and her condition and we will continue to follow up. [facility]# [id number]
--- NOTE | 2019-09-16 18:19 | Internal Medicine Prog Note ---
Internal Medicine Subjective - Subjective Service Date: 09/16/19 Patient seen and examined:: with staff (SHE HAS BEEN REFUSING MEDICATIN) Patient is:: awake, verbal, in bed, talking, confused Per staff patient has:: no adverse event, confused Internal Medicine Objective - Physical Exam Vitals and I&O: Vital Signs Temp 97.6 F 09/16/19 14:00 Pulse 57 09/16/19 14:00 Resp 18 09/16/19 14:00 BP 131/68 09/16/19 14:00 Pulse Ox 96 09/16/19 14:00 Intake & Output 09/15/19 09/16/19 09/16/19 18:59 06:59 18:59 Intake Total 120 Balance 120 Intake: Oral 120 Other: # Voids 3 1 # Bowel Movements 1 1 Weight Source Estimated Active Medications: Current Medications Acetaminophen (Tylenol) 650 mg PO Q4H PRN PRN Reason: Pain (Mild 1-3) Stop: 11/13/19 07:11 Acetaminophen (Tylenol) 650 mg PO Q4H PRN PRN Reason: For Temperature Above 100.4 Stop: 11/13/19 20:45 Dextrose (Glutose 40%) 18.75 gm PO PRN PRN PRN Reason: Blood Glucose less than 70 Stop: 11/13/19 20:57 Docusate Sodium (Colace) 250 mg PO DAILY [facility] Stop: 11/14/19 08:59 Last Admin: 09/16/19 08:54 Dose: 250 mg Glimepiride (Amaryl) 2 mg PO DAILY [facility] Stop: 11/16/19 08:59 Glucagon (Glucagen) 1 mg IM PRN PRN PRN Reason: BS Below 70 & not tolerate po Stop: 11/13/19 20:45 Insulin Human Lispro (Humalog Insulin Sliding Scale) 0 units SUBQ ACHS [facility]; Protocol Stop: 11/13/19 20:59 Last Admin: 09/16/19 16:31 Dose: Not Given Lorazepam (Ativan) 0.5 mg PO Q4HR PRN; Protocol PRN Reason: Anxiety Stop: 10/14/19 07:11 Magnesium Hydroxide (Milk Of Magnesia) 30 ml PO HS PRN PRN Reason: Constipation Multivitamins/Vitamin C (Theragran) 1 tab PO DAILY [facility] Stop: 11/13/19 08:59 Last Admin: 09/16/19 08:54 Dose: 1 tab Trihexyphenidyl HCl (Artane) 2 mg PO BID [facility] Stop: 11/13/19 10:29 Last Admin: 09/16/19 16:31 Dose: 2 mg Valproate Sodium (Depakene) 500 mg PO BID [facility]; Protocol Stop: 11/14/19 08:59 Last Admin: 09/16/19 16:33 Dose: 500 mg Zolpidem Tartrate (Ambien) 5 mg PO HS PRN PRN Reason: Insomnia Stop: 11/13/19 20:59 Last Admin: 09/15/19 20:45 Dose: 5 mg General: demented HEENT: NC/AT, PERRLA, EOMI, anicteric sclerae, throat clear Neck: Supple, No JVD, No thyromegaly, +2 carotid pulse wo bruit, No LAD Lungs: CTAB Cardiovascular: RRR, Normal S1, Normal S2, without murmur Abdomen: non-tender, non-distended Extremities: clear Neurological: no change Internal Medicine Assmt/Plan - Assessment Assessment: 1.DM. 2.CONSTIPATION 3.DEMENTIA. 4.PSYCHOSIS - Plan Plan: CONTINUE ON CURRENT MEDICATION AND DIET
[2019-09-17] MEDS: INSULIN LISPRO SLIDING SCALE 100 UNITS/ML UNIT SUBQ SCH ×4 (07:03→21:13)
[2019-09-17] MEDS: Multivitamin Tab PO SCH (09:07)
--- NOTE | 2019-09-17 15:05 | General Progress Note ---
Subjective - Review of Systems Service Date: 09/17/19 Subjective: resting comfortably no distress Objective - Physical Exam Vitals and I&O: Vital Signs Temp 97.8 F 09/17/19 14:23 Pulse 51 09/17/19 14:23 Resp 20 09/17/19 14:23 BP 121/58 09/17/19 14:23 Pulse Ox 98 09/17/19 14:23 Intake & Output 09/16/19 09/17/19 09/17/19 18:59 06:59 18:59 Intake Total 960 480 Output Total 1 Balance 960 479 Intake: Oral 960 480 Output: Urine/Stool Mix 1 Other: # Voids 3 1 # Bowel Movements 1 Active Medications: Current Medications Acetaminophen (Tylenol) 650 mg PO Q4H PRN PRN Reason: Pain (Mild 1-3) Stop: 11/13/19 07:11 Acetaminophen (Tylenol) 650 mg PO Q4H PRN PRN Reason: For Temperature Above 100.4 Stop: 11/13/19 20:45 Dextrose (Glutose 40%) 18.75 gm PO PRN PRN PRN Reason: Blood Glucose less than 70 Stop: 11/13/19 20:57 Docusate Sodium (Colace) 250 mg PO DAILY [facility] Stop: 11/14/19 08:59 Last Admin: 09/17/19 09:07 Dose: 250 mg Glimepiride (Amaryl) 2 mg PO DAILY [facility] Stop: 11/16/19 08:59 Last Admin: 09/17/19 09:10 Dose: 2 mg Glucagon (Glucagen) 1 mg IM PRN PRN PRN Reason: BS Below 70 & not tolerate po Stop: 11/13/19 20:45 Insulin Human Lispro (Humalog Insulin Sliding Scale) 0 units SUBQ ACHS [facility]; Protocol Stop: 11/13/19 20:59 Last Admin: 09/17/19 13:12 Dose: Not Given Lorazepam (Ativan) 0.5 mg PO Q4HR PRN; Protocol PRN Reason: Anxiety Stop: 10/14/19 07:11 Magnesium Hydroxide (Milk Of Magnesia) 30 ml PO HS PRN PRN Reason: Constipation Multivitamins/Vitamin C (Theragran) 1 tab PO DAILY [facility] Stop: 11/13/19 08:59 Last Admin: 09/17/19 09:07 Dose: 1 tab Trihexyphenidyl HCl (Artane) 2 mg PO BID [facility] Stop: 11/13/19 10:29 Last Admin: 09/17/19 09:07 Dose: 2 mg Valproate Sodium (Depakene) 500 mg PO BID [facility]; Protocol Stop: 11/14/19 08:59 Last Admin: 09/17/19 09:07 Dose: 500 mg Zolpidem Tartrate (Ambien) 5 mg PO HS PRN PRN Reason: Insomnia Stop: 11/13/19 20:59 Last Admin: 09/16/19 21:12 Dose: 5 mg General: No acute distress HEENT: Atraumatic, PERRLA Neck: Supple, JVD, Thyromegaly Cardiovascular: Regular rate, Normal S1, Normal S2 Lungs: Clear to auscultation Abdomen: Bowel sounds, Soft Assessment/Plan - Assessment Assessment: 1.DM. 2.CONSTIPATION 3.DEMENTIA. 4.PSYCHOSIS - Plan Plan: continue current treatment Nutritional Asmnt/Malnutr-PDOC - Dietary Evaluation Malnutrition Findings (Please click <Entered> for more info): Nutritional Asmnt/Malnutrition Start: 09/17/19 09: 19 Text: Status: Complete Freq: Protocol: Document 09/17/19 09:19 HAYLIE (Rec: 09/17/19 09:27 HAYLIE VASQUEZ- [email or web address]) Nutritional Asmnt/Malnutrition Patient General Information Nutritional Screening Moderate Risk Diagnosis Psychosis Pertinent Medical Hx/Surgical Hx Diabetes, constipation, dementia, psychosis Subjective Information Per nursing notes, patient often refusing blood sugar checks. Current diet order provides ~1793 kcal, 101 gm protein/day; average intake ~ 75% of meals; patient eating 1350kcal/day, 75gm protein/day meeting >90% of nutrient needs. Current Diet Order/ Nutrition Support 60gm CCHO Patient / S.O Not Indicated Pertinent Medications colace, glucagon, Humalog, MOM , theragran Pertinent Labs Labs WNL Nutritional Hx/Data Height 1.65 m Height (Calculated Centimeters) 165.1 Current Weight (lbs) 66.224 kg Weight (Calculated Kilograms) 66.2 Weight (Calculated Grams) 36817.5 [place] Body Weight 125 % [place] Body Weight 116 Body Mass Index (BMI) 24.3 Recent Weight Change No Weight Status Approriate GI Symptoms GI Symptoms None Last BM 09/16 x 1 Difficult in: None Food Allergies No Cultural/Ethnic/Adventist Belief none indicated Usual diet at home unknown Skin Integrity/Comment: Meet 19, right foot amputation Current %PO Good (75-100%) Estimated Nutritional Goals BEE in Kcals: Using Current wt Calories/Kcals/Kg 66.3kg CBW 22-27 kcal/kg Kcals Calculated ~4088-0339 kcal/day Protein: Using Current wt Protein g/k.8-1 gm/kg Protein Calculated ~55-65gm/day Fluid: ml ~8132-6284 ml/day (1 ml/kcal) Nutritional Problem No current Nutrition Prob Problem No nutrition diagnosis at this time Intervention/Recommendation Comments 1. Continue 60gm CCHO diet as tolerated by patient. Expected Outcomes/Goals Expected Outcomes/Goals Adequate nutrition to meet >75 % estimated needs, improved labs, skin remains intact, weight maintenance or trend toward ideal body weight. F/U LR 09/23-10
--- NOTE | 2019-09-18 06:45 | Psych Progress Note ---
Psych Progress Note - Intro Date of Progress Note: 09/17/19 - Assessment Assessment: Patient interviewed, case discussed with staff, chart and records were reviewed. Patient is depressed, angered and labile. 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 She gets very angry with this provider and states "I don't want to talk to you, you're not my psychiatrist I'm your psychiatrist now get out of here." Interview termainted due to escalating behaviors. - Vitals, I&O Vitals: Vital Signs - 24 hr 09/17/19 09/17/19 09/18/19 08:00 14:23 06:19 Temp 97.8 F 97.9 F HR 51 56 RR 20 20 18 BP 121/58 103/50 O2 Sat % 98 99 - Objective Psych General Appearance: Report: Clean Psych Behavior: Report: Uncooperative, Agitated Psych Speech: Report: Mumbled Psych Mood: Report: Angry Psych Affect: Report: Labile Psych Thought Process: Report: Grandiose, Loose Associations Psych Cognition: Report: Confused Psych Insight: Report: Impaired Psych Judgement: Report: Impaired - Plan Plan: continue current treatment plan, will monitor for side effects and behaviors. will transition to a 14 day hold due to seveirty of symptoms. - Review of Relevant Data Review of Relevant Data: I have reviewed the following items and time estella (where applicable) has been applied. - Medications Current Medications: Current Medications Acetaminophen (Tylenol) 650 mg PO Q4H PRN PRN Reason: Pain (Mild 1-3) Stop: 11/13/19 07:11 Acetaminophen (Tylenol) 650 mg PO Q4H PRN PRN Reason: For Temperature Above 100.4 Stop: 11/13/19 20:45 Dextrose (Glutose 40%) 18.75 gm PO PRN PRN PRN Reason: Blood Glucose less than 70 Stop: 11/13/19 20:57 Docusate Sodium (Colace) 250 mg PO DAILY [facility] Stop: 11/14/19 08:59 Last Admin: 09/17/19 09:07 Dose: 250 mg Glimepiride (Amaryl) 2 mg PO DAILY [facility] Stop: 11/16/19 08:59 Last Admin: 09/17/19 09:10 Dose: 2 mg Glucagon (Glucagen) 1 mg IM PRN PRN PRN Reason: BS Below 70 & not tolerate po Stop: 11/13/19 20:45 Insulin Human Lispro (Humalog Insulin Sliding Scale) 0 units SUBQ ACHS [facility]; Protocol Stop: 11/13/19 20:59 Last Admin: 09/17/19 21:13 Dose: Not Given Lorazepam (Ativan) 0.5 mg PO Q4HR PRN; Protocol PRN Reason: Anxiety Stop: 10/14/19 07:11 Magnesium Hydroxide (Milk Of Magnesia) 30 ml PO HS PRN PRN Reason: Constipation Multivitamins/Vitamin C (Theragran) 1 tab PO DAILY [facility] Stop: 11/13/19 08:59 Last Admin: 09/17/19 09:07 Dose: 1 tab Trihexyphenidyl HCl (Artane) 2 mg PO BID [facility] Stop: 11/13/19 10:29 Last Admin: 09/17/19 17:33 Dose: Not Given Valproate Sodium (Depakene) 500 mg PO BID [facility]; Protocol Stop: 11/14/19 08:59 Last Admin: 09/17/19 17:33 Dose: Not Given Zolpidem Tartrate (Ambien) 5 mg PO HS PRN PRN Reason: Insomnia Stop: 11/13/19 20:59 Last Admin: 09/16/19 21:12 Dose: 5 mg
[2019-09-18] MEDS: INSULIN LISPRO SLIDING SCALE 100 UNITS/ML UNIT SUBQ SCH ×4 (06:46→21:38)
[2019-09-18] MEDS: Multivitamin Tab PO SCH (09:28)
--- NOTE | 2019-09-18 14:15 | General Progress Note ---
Subjective - Review of Systems Service Date: 09/18/19 Subjective: resting comfortably no distress Objective - Physical Exam Vitals and I&O: Vital Signs Temp 97.9 F 09/18/19 06:19 Pulse 56 09/18/19 06:19 Resp 18 09/18/19 06:19 BP 103/50 09/18/19 06:19 Pulse Ox 99 09/18/19 06:19 Intake & Output 09/17/19 09/18/19 09/18/19 18:59 06:59 18:59 Intake Total 900 Balance 900 Intake: Oral 900 Other: # Voids 3 # Bowel Movements 1 Active Medications: Current Medications Acetaminophen (Tylenol) 650 mg PO Q4H PRN PRN Reason: Pain (Mild 1-3) Stop: 11/13/19 07:11 Acetaminophen (Tylenol) 650 mg PO Q4H PRN PRN Reason: For Temperature Above 100.4 Stop: 11/13/19 20:45 Dextrose (Glutose 40%) 18.75 gm PO PRN PRN PRN Reason: Blood Glucose less than 70 Stop: 11/13/19 20:57 Docusate Sodium (Colace) 250 mg PO DAILY [facility] Stop: 11/14/19 08:59 Last Admin: 09/18/19 09:28 Dose: 250 mg Glimepiride (Amaryl) 2 mg PO DAILY [facility] Stop: 11/16/19 08:59 Last Admin: 09/18/19 09:28 Dose: 2 mg Glucagon (Glucagen) 1 mg IM PRN PRN PRN Reason: BS Below 70 & not tolerate po Stop: 11/13/19 20:45 Insulin Human Lispro (Humalog Insulin Sliding Scale) 0 units SUBQ ACHS [facility]; Protocol Stop: 11/13/19 20:59 Last Admin: 09/18/19 12:21 Dose: Not Given Lorazepam (Ativan) 0.5 mg PO Q4HR PRN; Protocol PRN Reason: Anxiety Stop: 10/14/19 07:11 Magnesium Hydroxide (Milk Of Magnesia) 30 ml PO HS PRN PRN Reason: Constipation Multivitamins/Vitamin C (Theragran) 1 tab PO DAILY [facility] Stop: 11/13/19 08:59 Last Admin: 09/18/19 09:28 Dose: 1 tab Trihexyphenidyl HCl (Artane) 2 mg PO BID [facility] Stop: 11/13/19 10:29 Last Admin: 09/18/19 09:28 Dose: 2 mg Valproate Sodium (Depakene) 500 mg PO BID [facility]; Protocol Stop: 11/14/19 08:59 Last Admin: 09/18/19 09:28 Dose: 500 mg Zolpidem Tartrate (Ambien) 5 mg PO HS PRN PRN Reason: Insomnia Stop: 11/13/19 20:59 Last Admin: 09/16/19 21:12 Dose: 5 mg General: No acute distress HEENT: Atraumatic, PERRLA Neck: Supple, JVD, Thyromegaly Cardiovascular: Regular rate, Normal S1, Normal S2 Lungs: Clear to auscultation Abdomen: Bowel sounds, Soft Assessment/Plan - Assessment Assessment: 1.DM. 2.CONSTIPATION 3.DEMENTIA. 4.PSYCHOSIS - Plan Plan: continue current treatment Nutritional Asmnt/Malnutr-PDOC - Dietary Evaluation Malnutrition Findings (Please click <Entered> for more info): Nutritional Asmnt/Malnutrition Start: 09/17/19 09: 19 Text: Status: Complete Freq: Protocol: Document 09/17/19 09:19 HAYLIE (Rec: 09/17/19 09:27 HAYLIE CHRISTINA- FNS1) Nutritional Asmnt/Malnutrition Patient General Information Nutritional Screening Moderate Risk Diagnosis Psychosis Pertinent Medical Hx/Surgical Hx Diabetes, constipation, dementia, psychosis Subjective Information Per nursing notes, patient often refusing blood sugar checks. Current diet order provides ~1793 kcal, 101 gm protein/day; average intake ~ 75% of meals; patient eating 1350kcal/day, 75gm protein/day meeting >90% of nutrient needs. Current Diet Order/ Nutrition Support 60gm CCHO Patient / S.O Not Indicated Pertinent Medications colace, glucagon, Humalog, MOM , theragran Pertinent Labs Labs WNL Nutritional Hx/Data Height 1.65 m Height (Calculated Centimeters) 165.1 Current Weight (lbs) 66.224 kg Weight (Calculated Kilograms) 66.2 Weight (Calculated Grams) 74828.5 [place] Body Weight 125 % [place] Body Weight 116 Body Mass Index (BMI) 24.3 Recent Weight Change No Weight Status Approriate GI Symptoms GI Symptoms None Last BM 09/16 x 1 Difficult in: None Food Allergies No Cultural/Ethnic/Adventism Belief none indicated Usual diet at home unknown Skin Integrity/Comment: Meet Jung, right foot amputation Current %PO Good (75-100%) Estimated Nutritional Goals BEE in Kcals: Using Current wt Calories/Kcals/Kg 66.3kg CBW 22-27 kcal/kg Kcals Calculated ~9426-1164 kcal/day Protein: Using Current wt Protein g/k.8-1 gm/kg Protein Calculated ~55-65gm/day Fluid: ml ~3482-9758 ml/day (1 ml/kcal) Nutritional Problem No current Nutrition Prob Problem No nutrition diagnosis at this time Intervention/Recommendation Comments 1. Continue 60gm CCHO diet as tolerated by patient. Expected Outcomes/Goals Expected Outcomes/Goals Adequate nutrition to meet >75 % estimated needs, improved labs, skin remains intact, weight maintenance or trend toward ideal body weight. F/U LR /-10
[2019-09-19] MEDS: INSULIN LISPRO SLIDING SCALE 100 UNITS/ML UNIT SUBQ SCH ×4 (06:37→20:27)
--- NOTE | 2019-09-19 06:46 | Psych Progress Note ---
Psych Progress Note - Intro Date of Progress Note: 09/18/19 - Assessment Assessment: Patient interviewed, case discussed with staff, chart and records were reviewed. Patient is depressed, angered and labile. 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 Continues to be angered easily, easily provoked, poor isnight, no plan for care. Interview termainted due to escalating behaviors. - Vitals, I&O Vitals: Vital Signs - 24 hr 09/18/19 09/18/19 09/19/19 08:00 19:53 05:58 Temp 98.1 F 97.7 F HR 55 66 54 RR 18 20 20 BP 108/53 119/64 105/50 O2 Sat % 97 99 - Objective Psych General Appearance: Report: Clean Psych Behavior: Report: Uncooperative, Agitated Psych Speech: Report: Mumbled Psych Mood: Report: Angry Psych Affect: Report: Labile Psych Thought Process: Report: Grandiose, Loose Associations Psych Cognition: Report: Confused Psych Insight: Report: Impaired Psych Judgement: Report: Impaired - Plan Plan: continue current treatment plan, will monitor for side effects and behaviors. - Review of Relevant Data Review of Relevant Data: I have reviewed the following items and time estella (where applicable) has been applied. - Medications Current Medications: Current Medications Acetaminophen (Tylenol) 650 mg PO Q4H PRN PRN Reason: Pain (Mild 1-3) Stop: 11/13/19 07:11 Acetaminophen (Tylenol) 650 mg PO Q4H PRN PRN Reason: For Temperature Above 100.4 Stop: 11/13/19 20:45 Dextrose (Glutose 40%) 18.75 gm PO PRN PRN PRN Reason: Blood Glucose less than 70 Stop: 11/13/19 20:57 Docusate Sodium (Colace) 250 mg PO DAILY [facility] Stop: 11/14/19 08:59 Last Admin: 09/18/19 09:28 Dose: 250 mg Glimepiride (Amaryl) 2 mg PO DAILY [facility] Stop: 11/16/19 08:59 Last Admin: 09/18/19 09:28 Dose: 2 mg Glucagon (Glucagen) 1 mg IM PRN PRN PRN Reason: BS Below 70 & not tolerate po Stop: 11/13/19 20:45 Insulin Human Lispro (Humalog Insulin Sliding Scale) 0 units SUBQ ACHS [facility]; Protocol Stop: 11/13/19 20:59 Last Admin: 09/19/19 06:37 Dose: Not Given Lorazepam (Ativan) 0.5 mg PO Q4HR PRN; Protocol PRN Reason: Anxiety Stop: 10/14/19 07:11 Magnesium Hydroxide (Milk Of Magnesia) 30 ml PO HS PRN PRN Reason: Constipation Multivitamins/Vitamin C (Theragran) 1 tab PO DAILY [facility] Stop: 11/13/19 08:59 Last Admin: 09/18/19 09:28 Dose: 1 tab Trihexyphenidyl HCl (Artane) 2 mg PO BID [facility] Stop: 11/13/19 10:29 Last Admin: 09/18/19 16:54 Dose: 2 mg Valproate Sodium (Depakene) 500 mg PO BID [facility]; Protocol Stop: 11/14/19 08:59 Last Admin: 09/18/19 16:54 Dose: 500 mg Zolpidem Tartrate (Ambien) 5 mg PO HS PRN PRN Reason: Insomnia Stop: 11/13/19 20:59 Last Admin: 09/16/19 21:12 Dose: 5 mg
[2019-09-19] MEDS: Multivitamin Tab PO SCH (08:54)
--- NOTE | 2019-09-19 10:00 | Progress Notes ---
DATE: SUBJECTIVE: Chart was reviewed and the patient interviewed. Also discussed the patient's condition with the staff and reviewed records and labs. 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 She also is still guarded and she is still withdrawn and eating in her room. She also is still mourning and talking to herself and selectively mute. On the other hand, the patient is not screaming or yelling as she was before. ASSESSMENT: The patient is still psychotic, but seems to be calmer. TREATMENT PLAN: We will continue to monitor her behavior and her condition closely. Also trying to avoid having the patient on antipsychotic medications because of her age, but at the same time, we will continue to work on her irritability and her anger and yelling and screaming, although it seems to be much improved and we will continue to follow up closely. [facility]# [id number]
--- NOTE | 2019-09-19 15:26 | Internal Medicine Prog Note ---
Internal Medicine Subjective - Subjective Service Date: 09/19/19 Patient seen and examined:: without staff (SHE IS CONFUSED,BUT TAKING MEDICATION ) Patient is:: awake, verbal, in bed, talking, confused Per staff patient has:: no adverse event, confused Internal Medicine Objective - Physical Exam Vitals and I&O: Vital Signs Temp 97.7 F 09/19/19 05:58 Pulse 54 09/19/19 05:58 Resp 20 09/19/19 05:58 BP 105/50 09/19/19 05:58 Pulse Ox 99 09/19/19 05:58 Intake & Output 09/18/19 09/19/19 09/19/19 18:59 06:59 18:59 Intake Total 950 360 Balance 950 360 Intake: Oral 950 360 Other: # Voids 4 1 # Bowel Movements 1 0 Active Medications: Current Medications Acetaminophen (Tylenol) 650 mg PO Q4H PRN PRN Reason: Pain (Mild 1-3) Stop: 11/13/19 07:11 Acetaminophen (Tylenol) 650 mg PO Q4H PRN PRN Reason: For Temperature Above 100.4 Stop: 11/13/19 20:45 Dextrose (Glutose 40%) 18.75 gm PO PRN PRN PRN Reason: Blood Glucose less than 70 Stop: 11/13/19 20:57 Docusate Sodium (Colace) 250 mg PO DAILY [facility] Stop: 11/14/19 08:59 Last Admin: 09/19/19 08:54 Dose: 250 mg Glimepiride (Amaryl) 2 mg PO DAILY [facility] Stop: 11/16/19 08:59 Last Admin: 09/19/19 08:53 Dose: 2 mg Glucagon (Glucagen) 1 mg IM PRN PRN PRN Reason: BS Below 70 & not tolerate po Stop: 11/13/19 20:45 Insulin Human Lispro (Humalog Insulin Sliding Scale) 0 units SUBQ ACHS [facility]; Protocol Stop: 11/13/19 20:59 Last Admin: 09/19/19 11:25 Dose: Not Given Lorazepam (Ativan) 0.5 mg PO Q4HR PRN; Protocol PRN Reason: Anxiety Stop: 10/14/19 07:11 Magnesium Hydroxide (Milk Of Magnesia) 30 ml PO HS PRN PRN Reason: Constipation Multivitamins/Vitamin C (Theragran) 1 tab PO DAILY [facility] Stop: 11/13/19 08:59 Last Admin: 09/19/19 08:54 Dose: 1 tab Trihexyphenidyl HCl (Artane) 2 mg PO BID [facility] Stop: 11/13/19 10:29 Last Admin: 09/19/19 08:53 Dose: 2 mg Valproate Sodium (Depakene) 500 mg PO BID [facility]; Protocol Stop: 11/14/19 08:59 Last Admin: 09/19/19 08:54 Dose: 500 mg Zolpidem Tartrate (Ambien) 5 mg PO HS PRN PRN Reason: Insomnia Stop: 11/13/19 20:59 Last Admin: 09/16/19 21:12 Dose: 5 mg General: demented HEENT: NC/AT, PERRLA, EOMI, anicteric sclerae, throat clear Neck: Supple, No JVD, No thyromegaly, +2 carotid pulse wo bruit, No LAD Lungs: CTAB Cardiovascular: RRR, Normal S1, Normal S2, without murmur Abdomen: non-tender, non-distended Extremities: clear Neurological: no change Internal Medicine Assmt/Plan - Assessment Assessment: 1.DM. 2.CONSTIPATION 3.DEMENTIA. 4.PSYCHOSIS - Plan Plan: CONTINUE ON CURRENT MEDICATION AND DIET Nutritional Asmnt/Malnutr-PDOC - Dietary Evaluation Malnutrition Findings (Please click <Entered> for more info): Nutritional Asmnt/Malnutrition Start: 09/17/19 09: 19 Text: Status: Complete Freq: Protocol: Document 09/17/19 09:19 HAYLIE (Rec: 09/17/19 09:27 HAYLIE VASQUEZ- FNS1) Nutritional Asmnt/Malnutrition Patient General Information Nutritional Screening Moderate Risk Diagnosis Psychosis Pertinent Medical Hx/Surgical Hx Diabetes, constipation, dementia, psychosis Subjective Information Per nursing notes, patient often refusing blood sugar checks. Current diet order provides ~1793 kcal, 101 gm protein/day; average intake ~ 75% of meals; patient eating 1350kcal/day, 75gm protein/day meeting >90% of nutrient needs. Current Diet Order/ Nutrition Support 60gm CCHO Patient / S.O Not Indicated Pertinent Medications colace, glucagon, Humalog, MOM , theragran Pertinent Labs Labs WNL Nutritional Hx/Data Height 1.65 m Height (Calculated Centimeters) 165.1 Current Weight (lbs) 66.224 kg Weight (Calculated Kilograms) 66.2 Weight (Calculated Grams) 03491.5 [place] Body Weight 125 % [place] Body Weight 116 Body Mass Index (BMI) 24.3 Recent Weight Change No Weight Status Approriate GI Symptoms GI Symptoms None Last BM 09/16 x 1 Difficult in: None Food Allergies No Cultural/Ethnic/Lutheran Belief none indicated Usual diet at home unknown Skin Integrity/Comment: Meet 19, right foot amputation Current %PO Good (75-100%) Estimated Nutritional Goals BEE in Kcals: Using Current wt Calories/Kcals/Kg 66.3kg CBW 22-27 kcal/kg Kcals Calculated ~9718-7288 kcal/day Protein: Using Current wt Protein g/k.8-1 gm/kg Protein Calculated ~55-65gm/day Fluid: ml ~7677-7713 ml/day (1 ml/kcal) Nutritional Problem No current Nutrition Prob Problem No nutrition diagnosis at this time Intervention/Recommendation Comments 1. Continue 60gm CCHO diet as tolerated by patient. Expected Outcomes/Goals Expected Outcomes/Goals Adequate nutrition to meet >75 % estimated needs, improved labs, skin remains intact, weight maintenance or trend toward ideal body weight. F/U LR /-10
[2019-09-20] MEDS: INSULIN LISPRO SLIDING SCALE 100 UNITS/ML UNIT SUBQ SCH ×4 (06:38→21:15)
[2019-09-20] MEDS: Multivitamin Tab PO SCH (08:29)
--- NOTE | 2019-09-20 10:31 | Progress Notes ---
DATE: SUBJECTIVE: Chart reviewed and the patient interviewed. Also discussed the patient's condition with the staff and reviewed records and labs. 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 She was not elaborate on what does she mean by the war. She is still suspicious and paranoid and she is still isolative and withdrawn with minimum interactions with others. She also is still sitting on her wheelchair most of the time and very suspicious and paranoid and guarded to talk about her issues and her problems. The patient has a history of what seems to be schizoaffective disorder. At this time, I will add Risperdal in a dose of 0.5 mg twice a day, and we will continue to monitor her behavior and her condition closely. [facility]# [id number]
--- NOTE | 2019-09-20 21:19 | Internal Medicine Prog Note ---
Internal Medicine Subjective - Subjective Service Date: 09/20/19 Patient seen and examined:: without staff (SHE IS DOING WELL) Patient is:: awake, verbal, in bed, talking, confused Per staff patient has:: no adverse event, confused Internal Medicine Objective - Physical Exam Vitals and I&O: Vital Signs Temp 0 F 09/20/19 06:33 Pulse 55 09/19/19 20:24 Resp 18 09/19/19 20:24 BP 152/65 09/19/19 20:24 Pulse Ox 97 09/19/19 20:24 Intake & Output 09/20/19 09/20/19 09/21/19 06:59 18:59 06:59 Intake Total 240 1300 Balance 240 1300 Intake: Oral 240 1300 Other: # Voids 3 3 # Bowel Movements 0 0 Active Medications: Current Medications Acetaminophen (Tylenol) 650 mg PO Q4H PRN PRN Reason: Pain (Mild 1-3) Stop: 11/13/19 07:11 Acetaminophen (Tylenol) 650 mg PO Q4H PRN PRN Reason: For Temperature Above 100.4 Stop: 11/13/19 20:45 Dextrose (Glutose 40%) 18.75 gm PO PRN PRN PRN Reason: Blood Glucose less than 70 Stop: 11/13/19 20:57 Docusate Sodium (Colace) 250 mg PO DAILY [facility] Stop: 11/14/19 08:59 Last Admin: 09/20/19 08:30 Dose: 250 mg Glimepiride (Amaryl) 2 mg PO DAILY [facility] Stop: 11/16/19 08:59 Last Admin: 09/20/19 08:29 Dose: 2 mg Glucagon (Glucagen) 1 mg IM PRN PRN PRN Reason: BS Below 70 & not tolerate po Stop: 11/13/19 20:45 Insulin Human Lispro (Humalog Insulin Sliding Scale) 0 units SUBQ ACHS [facility]; Protocol Stop: 11/13/19 20:59 Last Admin: 09/20/19 21:15 Dose: Not Given Lorazepam (Ativan) 0.5 mg PO Q4HR PRN; Protocol PRN Reason: Anxiety Stop: 10/14/19 07:11 Magnesium Hydroxide (Milk Of Magnesia) 30 ml PO HS PRN PRN Reason: Constipation Multivitamins/Vitamin C (Theragran) 1 tab PO DAILY [facility] Stop: 11/13/19 08:59 Last Admin: 09/20/19 08:29 Dose: 1 tab Risperidone (Risperdal) 0.5 mg PO BID [facility]; Protocol Stop: 11/19/19 08:59 Last Admin: 09/20/19 16:29 Dose: 0.5 mg Trihexyphenidyl HCl (Artane) 2 mg PO BID [facility] Stop: 11/13/19 10:29 Last Admin: 09/20/19 16:29 Dose: 2 mg Valproate Sodium (Depakene) 500 mg PO BID [facility]; Protocol Stop: 11/14/19 08:59 Last Admin: 09/20/19 16:28 Dose: 500 mg Zolpidem Tartrate (Ambien) 5 mg PO HS PRN PRN Reason: Insomnia Stop: 11/13/19 20:59 Last Admin: 09/16/19 21:12 Dose: 5 mg General: demented HEENT: NC/AT, PERRLA, EOMI, anicteric sclerae, throat clear Neck: Supple, No JVD, No thyromegaly, +2 carotid pulse wo bruit, No LAD Lungs: CTAB Cardiovascular: RRR, Normal S1, Normal S2, without murmur Abdomen: non-tender, non-distended Extremities: clear Neurological: no change Internal Medicine Assmt/Plan - Assessment Assessment: 1.DM. 2.CONSTIPATION 3.DEMENTIA. 4.PSYCHOSIS - Plan Plan: CONTINUE ON CURRENT MEDICATION AND DIET Nutritional Asmnt/Malnutr-PDOC - Dietary Evaluation Malnutrition Findings (Please click <Entered> for more info): Nutritional Asmnt/Malnutrition Start: 09/17/19 09: 19 Text: Status: Complete Freq: Protocol: Document 09/17/19 09:19 HAYLIE (Rec: 09/17/19 09:27 HAYLIE VASQUEZ- [email or web address]) Nutritional Asmnt/Malnutrition Patient General Information Nutritional Screening Moderate Risk Diagnosis Psychosis Pertinent Medical Hx/Surgical Hx Diabetes, constipation, dementia, psychosis Subjective Information Per nursing notes, patient often refusing blood sugar checks. Current diet order provides ~1793 kcal, 101 gm protein/day; average intake ~ 75% of meals; patient eating 1350kcal/day, 75gm protein/day meeting >90% of nutrient needs. Current Diet Order/ Nutrition Support 60gm CCHO Patient / S.O Not Indicated Pertinent Medications colace, glucagon, Humalog, MOM , theragran Pertinent Labs Labs WNL Nutritional Hx/Data Height 1.65 m Height (Calculated Centimeters) 165.1 Current Weight (lbs) 66.224 kg Weight (Calculated Kilograms) 66.2 Weight (Calculated Grams) 06738.5 [place] Body Weight 125 % [place] Body Weight 116 Body Mass Index (BMI) 24.3 Recent Weight Change No Weight Status Approriate GI Symptoms GI Symptoms None Last BM 09/16 x 1 Difficult in: None Food Allergies No Cultural/Ethnic/Nondenominational Belief none indicated Usual diet at home unknown Skin Integrity/Comment: Meet Jung, right foot amputation Current %PO Good (75-100%) Estimated Nutritional Goals BEE in Kcals: Using Current wt Calories/Kcals/Kg 66.3kg CBW 22-27 kcal/kg Kcals Calculated ~4923-7710 kcal/day Protein: Using Current wt Protein g/k.8-1 gm/kg Protein Calculated ~55-65gm/day Fluid: ml ~2442-7443 ml/day (1 ml/kcal) Nutritional Problem No current Nutrition Prob Problem No nutrition diagnosis at this time Intervention/Recommendation Comments 1. Continue 60gm CCHO diet as tolerated by patient. Expected Outcomes/Goals Expected Outcomes/Goals Adequate nutrition to meet >75 % estimated needs, improved labs, skin remains intact, weight maintenance or trend toward ideal body weight. F/U LR 09/23-10
[2019-09-21] MEDS: INSULIN LISPRO SLIDING SCALE 100 UNITS/ML UNIT SUBQ SCH ×4 (06:38→20:30)
[2019-09-21] MEDS: Multivitamin Tab PO SCH (09:59)
--- NOTE | 2019-09-21 22:05 | Internal Medicine Prog Note ---
Internal Medicine Subjective - Subjective Service Date: 09/21/19 Patient seen and examined:: without staff (SHE IS DOING BETTER) Patient is:: awake, verbal, in bed, talking, confused Per staff patient has:: no adverse event, confused Internal Medicine Objective - Physical Exam Vitals and I&O: Vital Signs Temp 98.2 F 09/21/19 20:41 Pulse 73 09/21/19 20:41 Resp 20 09/21/19 20:41 BP 100/53 09/21/19 20:41 Pulse Ox 98 09/21/19 20:41 Intake & Output 09/21/19 09/21/19 09/22/19 06:59 18:59 06:59 Intake Total 1200 120 Balance 1200 120 Intake: Oral 1200 120 Other: # Voids 3 2 # Bowel Movements 0 1 0 Active Medications: Current Medications Acetaminophen (Tylenol) 650 mg PO Q4H PRN PRN Reason: Pain (Mild 1-3) Stop: 11/13/19 07:11 Acetaminophen (Tylenol) 650 mg PO Q4H PRN PRN Reason: For Temperature Above 100.4 Stop: 11/13/19 20:45 Dextrose (Glutose 40%) 18.75 gm PO PRN PRN PRN Reason: BS Below 70 if tolerate po Stop: 11/13/19 20:57 Docusate Sodium (Colace) 250 mg PO DAILY [facility] Stop: 11/14/19 08:59 Last Admin: 09/21/19 09:59 Dose: Not Given Glimepiride (Amaryl) 2 mg PO DAILY [facility] Stop: 11/16/19 08:59 Last Admin: 09/21/19 10:00 Dose: 2 mg Glucagon (Glucagen) 1 mg IM PRN PRN PRN Reason: BS Below 70 & not tolerate po Stop: 11/13/19 20:45 Insulin Human Lispro (Humalog Insulin Sliding Scale) 0 units SUBQ ACHS [facility]; Protocol Stop: 11/13/19 20:59 Last Admin: 09/21/19 17:11 Dose: Not Given Lorazepam (Ativan) 0.5 mg PO Q4HR PRN; Protocol PRN Reason: Anxiety Stop: 10/14/19 07:11 Magnesium Hydroxide (Milk Of Magnesia) 30 ml PO HS PRN PRN Reason: Constipation Multivitamins/Vitamin C (Theragran) 1 tab PO DAILY [facility] Stop: 11/13/19 08:59 Last Admin: 09/21/19 09:59 Dose: Not Given Risperidone (Risperdal) 0.5 mg PO BID [facility]; Protocol Stop: 11/19/19 08:59 Last Admin: 09/21/19 17:11 Dose: 0.5 mg Trihexyphenidyl HCl (Artane) 2 mg PO BID [facility] Stop: 11/13/19 10:29 Last Admin: 09/21/19 17:12 Dose: 2 mg Valproate Sodium (Depakene) 500 mg PO BID [facility]; Protocol Stop: 11/14/19 08:59 Last Admin: 09/21/19 17:12 Dose: 500 mg Zolpidem Tartrate (Ambien) 5 mg PO HS PRN PRN Reason: Insomnia Stop: 11/13/19 20:59 Last Admin: 09/16/19 21:12 Dose: 5 mg General: demented HEENT: NC/AT, PERRLA, EOMI, anicteric sclerae, throat clear Neck: Supple, No JVD, No thyromegaly, +2 carotid pulse wo bruit, No LAD Lungs: CTAB Cardiovascular: RRR, Normal S1, Normal S2, without murmur Abdomen: non-tender, non-distended Extremities: clear Neurological: no change Internal Medicine Assmt/Plan - Assessment Assessment: 1.DM. 2.CONSTIPATION 3.DEMENTIA. 4.PSYCHOSIS - Plan Plan: CONTINUE ON CURRENT MEDICATION AND DIET Nutritional Asmnt/Malnutr-PDOC - Dietary Evaluation Malnutrition Findings (Please click <Entered> for more info): Nutritional Asmnt/Malnutrition Start: 09/17/19 09: 19 Text: Status: Complete Freq: Protocol: Document 09/17/19 09:19 HAYLIE (Rec: 09/17/19 09:27 HAYLIE VASQUEZ- [email or web address]) Nutritional Asmnt/Malnutrition Patient General Information Nutritional Screening Moderate Risk Diagnosis Psychosis Pertinent Medical Hx/Surgical Hx Diabetes, constipation, dementia, psychosis Subjective Information Per nursing notes, patient often refusing blood sugar checks. Current diet order provides ~1793 kcal, 101 gm protein/day; average intake ~ 75% of meals; patient eating 1350kcal/day, 75gm protein/day meeting >90% of nutrient needs. Current Diet Order/ Nutrition Support 60gm CCHO Patient / S.O Not Indicated Pertinent Medications colace, glucagon, Humalog, MOM , theragran Pertinent Labs Labs WNL Nutritional Hx/Data Height 1.65 m Height (Calculated Centimeters) 165.1 Current Weight (lbs) 66.224 kg Weight (Calculated Kilograms) 66.2 Weight (Calculated Grams) 97060.5 [place] Body Weight 125 % [place] Body Weight 116 Body Mass Index (BMI) 24.3 Recent Weight Change No Weight Status Approriate GI Symptoms GI Symptoms None Last BM 09/16 x 1 Difficult in: None Food Allergies No Cultural/Ethnic/Hindu Belief none indicated Usual diet at home unknown Skin Integrity/Comment: Meet 19, right foot amputation Current %PO Good (75-100%) Estimated Nutritional Goals BEE in Kcals: Using Current wt Calories/Kcals/Kg 66.3kg CBW 22-27 kcal/kg Kcals Calculated ~3902-7966 kcal/day Protein: Using Current wt Protein g/k.8-1 gm/kg Protein Calculated ~55-65gm/day Fluid: ml ~7566-5279 ml/day (1 ml/kcal) Nutritional Problem No current Nutrition Prob Problem No nutrition diagnosis at this time Intervention/Recommendation Comments 1. Continue [facility] diet as tolerated by patient. Expected Outcomes/Goals Expected Outcomes/Goals Adequate nutrition to meet >75 % estimated needs, improved labs, skin remains intact, weight maintenance or trend toward ideal body weight. F/U LR 09/23-10
[2019-09-22] MEDS: INSULIN LISPRO SLIDING SCALE 100 UNITS/ML UNIT SUBQ SCH ×3 (06:55→16:00)
--- NOTE | 2019-09-22 07:30 | Discharge Summary ---
DATE OF DISCHARGE: 09/22/2019 AGE: 74 SEX: Female. PHYSICIAN: Rudy Garcia MD, MPH PRIMARY DIAGNOSES: Schizoaffective disorder, mixed episode, severe, with psychotic features. MEDICAL DIAGNOSES: 1. Seizure disorder. 2. Diabetes mellitus. 3. Peripheral vascular disease. REASON FOR HOSPITALIZATION: The patient was admitted to the hospital from [facility] because of increased irritability and because of verbal and physical aggression towards staff in the facility and the patient's behavior was not able to be controlled. HOSPITAL COURSE: The patient continued to be anxious and irritable mood. The patient also was still paranoid and she was talking war and about that she is a peacemaker for the war. She also thinks that she is an officer. The patient was rambling, but at the same time, she was easy to follow directions and at times she mostly staying by herself in her room. The patient was also given Risperdal and a dose of 0.5 mg twice a day and the Depakote 500 mg twice a day. Depakote blood level ordered and results are pending. Since the patient was calm and cooperative, the patient was discharged from the hospital. PHYSICAL EXAMINATION: The patient showed no major medical problems while in the hospital. AFTER DISCHARGE PLANS: The patient discharged from the hospital and returned to [place], was planned to follow her there. EXPECTED OUTCOME AFTER DISCHARGE: Fair if the patient continues to take his psychotropic medications and follow up with discharge plans. JOB# [id number]
[2019-09-22] MEDS: Multivitamin Tab PO SCH (08:46)
== END 2019-09-22 16:32 | DRG 885 ==
LOC: GERO 09-14 05:14
PROVIDERS: ADMIT Psychiatry & Neurology Psychiatry; ATTEND Psychiatry & Neurology Psychiatry
DX: F25.0 Schizoaffective disorder, bipolar type (principal); K21.9 Gastro-esophageal reflux disease without esophagitis; G40.909 Epilepsy, unspecified, not intractable, without status epilepticus; E11.51 Type 2 diabetes mellitus with diabetic peripheral angiopathy without gangrene; F03.90 Unspecified dementia, unspecified severity, without behavioral disturbance, psychotic disturbance, mood disturbance, and anxiety; K59.00 Constipation, unspecified; F29 Unspecified psychosis not due to a substance or known physiological condition; Z88.8 Allergy status to other drugs, medicaments and biological substances
CPT/HCPCS: 83036-90; Z7610